=== PATIENT | male | born 1960 | race Caucasian/White ===

== ENCOUNTER 2024-11-24 00:45 | Emergency (ER) | payer SELFPAY ==
[2024-11-24] VITALS (29 sets, daily range): BP systolic 167–225; BP diastolic 92–141; PULSE 63–85; TEMP 36.4–36.9; O2SAT 72–95; BMI 20.4
--- NOTE | 2024-11-24 01:05 | PC.NURSE ---
this patient complains of shortness of breath onset a cough days this patient shortness of breath at rest and with walking
--- NOTE | 2024-11-24 01:08 | XR_ITS ---
The [address] [address] Patient Name: CONNIE JANSEN MRN: [id number] date: 1960 Sex: M Assigned Patient Location: ER Current Patient Location: ER Accession/Order Number: [id number] Exam Date: 11/24/2024 01:20 Report Date: 11/24/2024 01:40 At the request of: JEAN PIERRE SANCHEZ Procedure: XR chest 2V EXAM: XR chest 2V HISTORY: shortness of breath COMPARISON: None. TECHNIQUE: PA and lateral chest. FINDINGS: Acute infiltrates/pneumonia at base of right upper lobe and throughout the left lower lobe posterior aspect. Bilateral multifocal pneumonia. There is likely some involvement of the right lung base as well. Rest of lungs are clear. No pneumothorax. No pleural effusion. Normal heart size and vasculature. Normal osseous structures. XR/XR chest 2V IMPRESSION: Acute bilateral multifocal pneumonia involving right upper lobe and probably both lower lobes. Correlate for community-acquired infection and/or aspiration pneumonia versus atypical variety. Electronically authenticated by: KIA DRUMMOND Date: 11/24/2024 01:40
--- NOTE | 2024-11-24 01:12 | ECG_ITS ---
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
--- NOTE | 2024-11-24 01:13 | ED_ITS ---
HPI - SOB/Dyspnea General Chief Complaint: Shortness of Breath/Dyspnea Stated Complaint: SOB Time Seen by Provider: 11/24/24 00:52 Source: patient Mode of arrival: walk-in Limitations: no limitations History of Present Illness HPI Narrative: pt presents with shortness of breath that began one week ago and suddenly worsened tonight. He has not been evaluated by a PCP in over 10 yeas. He denies any PMHx, including asthma and COPD, but would not know since he has not seen anyone in so long. he is a daily smoker. No fever or chills. No nasal symptoms, ear pain or sore throat. he admits to some chest congestion. Related Data Previous Rx's ?Medication ?Instructions ?Recorded albuterol sulfate 90 mcg/actuation 2 inh inhalation Q6H PRN shortness 11/24/24 aerosol inhaler of breath or wheezing #6.7 grams doxycycline hyclate 100 mg tablet 100 mg PO BID 7 days #14 tabs 11/24/24 Allergies Allergy/AdvReac Type Severity Reaction Status Date / Time No Known Drug Allergies Allergy Verified 11/24/24 00:53 PFSH PFSH Social History Little interest or pleasure in doing things: not at all Feeling down, depressed, or hopeless: not at all Exam Narrative Exam Narrative: Nurses notes and vital signs reviewed and patient is not hypoxic. afebrile General: Well-appearing and in no apparent distress. Skin: Warm, dry, no pallor noted. No rash. Head: Normocephalic, atraumatic. Neck: Supple, non-tender. Eye: Pupils are equal, round and EOMI. No scleral icterus. Ears, Nose, Mouth, and Throat: TM are clear, no posterior oropharynx erythema or nasal mucosal hypertrophy, uvula is mid-line Oral mucosa is moist Cardiovascular: Regular Rate and Rhythm without murmur, gallop or rub. Respiratory: No accessory muscle use or respiratory distress. Lungs with scattered expiratory wheezing and rhonchi Musculoskeletal: normal ROM, no calf or popliteal tenderness, no lower extremity edema/swelling GI: Abdomen is soft, non-distended. Normal bowel sounds. No tenderness to palpation. No rebound, guarding, or rigidity noted. Neurological: A&O x4. No cranial nerve dysfunction observed. No truncal ataxia. Moves all extremities. Sensation intact. Psychiatric: Cooperative and interactive. Normal mood and affect. Constitutional Vital Signs, click to edit/add: Last Vital Signs Temp 97.6 F 11/24/24 00:49 Pulse 66 11/24/24 02:45 Resp 18 11/24/24 02:45 BP 173/93 H 11/24/24 02:45 Pulse Ox 92 L 11/24/24 02:45 O2 Del Method Room Air 11/24/24 00:49 Course Vital Signs Vital signs: Vital Signs Temperature 97.6 F 11/24/24 00:49 Pulse Rate 85 11/24/24 00:49 Respiratory Rate 20 11/24/24 00:49 Blood Pressure 225/141 H 11/24/24 00:49 Pulse Oximetry 92 L 11/24/24 00:49 Oxygen Delivery Method Room Air 11/24/24 00:49 Temperature 97.6 F 11/24/24 00:49 Pulse Rate 66 11/24/24 02:45 Respiratory Rate 18 11/24/24 02:45 Blood Pressure 173/93 H 11/24/24 02:45 Pulse Oximetry 92 L 11/24/24 02:45 Oxygen Delivery Method Room Air 11/24/24 00:49 MDM - SOB/Dyspnea MDM Narrative Medical decision making narrative: Patient found to have markedly elevated blood pressure. Patient was placed on hospital monitor and EKG obtained. No ST elevation although he did have biatrial enlargement and right axis deviation. Blood drawn and sent for evaluation. He was ordered to receive IV Labetalol for his HTN. WBC 11.2k. Chest x-ray reveals multifocal pneumonia. Pt informed of findings and given dose of doxycycline in ED. BMP revealed K 1.9 - he was ordered to get both oral and IV potassium. His troponin and BNP were revealed to be markedly elevated - trop 139, BNP 11542 He and I talked about his findings including markedly elevated troponin. He told me that he never had chest pain, just a dull ache under the left breast two days ago that lasted less than a couple of hours. Call placed to the hospitalist at [facility] to discuss transfer since we have no cardiac interventional coverage. Dr Olivier and I discussed the case and he agreed to accept the patient's transfer to our facility. he asked that I give the patient a dose of baby aspirin and a Lovenox injection while we awaited bed assignment and ambulance transfer. Pt was agreeable to go to [facility] for transfer and admission and understood our inability to manage his condition at this facility. Lab Data Attestation: I reviewed the patient's lab results. Labs: Lab Results 11/24/24 Range/Units 01:30 WBC 11.2 H (4.0-11.0) 10^3/uL RBC 4.00 L (4.70-6.10) 10^6/uL Hgb 13.0 L (14.0-18.0) g/dL Hct 36.2 L (42.0-54.0) % MCV 90.5 (80.0-94.0) fL MCH 32.5 (25.9-34.0) pg MCHC 35.9 H (29.9-35.2) g/dL RDW 12.7 (11.0-15.0) % Plt Count 308 (150-450) 10^3/uL MPV 8.6 L (9.5-13.5) fL Neut % (Auto) 76.6 H (43.0-75.0) % Lymph % (Auto) 14.5 L (20.5-60.0) % [place] % (Auto) 7.7 (1.7-12.0) % Eos % (Auto) 0.4 L (0.9-7.0) % Baso % (Auto) 0.4 (0.2-2.0) % Neut # (Auto) 8.6 H (1.4-6.5) 10^3/uL Lymph # (Auto) 1.6 (1.2-3.8) 10^3/uL [place] # (Auto) 0.9 H (0.3-0.8) 10^3/uL Eos # (Auto) 0.0 (0.0-0.7) 10^3/uL Baso # (Auto) 0.0 (0.0-0.1) 10^3/uL Abs Immat Gran (auto) 0.05 H (0.00-0.03) 10^3/uL Imm/Tot Granulo (auto) 0.4 (0.0-0.5) % Sodium 127 L (136-145) mmol/L Potassium 1.9 L* (3.5-5.1) mmol/L Chloride 86 L (98-107) mmol/L Carbon Dioxide 38.1 H (21.0-32.0) mmol/L Anion Gap 4.8 BUN 19.0 H (7.0-18.0) mg/dL Creatinine 1.12 (0.70-1.30) mg/dL Est GFR ( Amer) >60 (>=60 mL/min/1.73m^2) Est GFR (Non-Af Amer) >60 (>=60 mL/min/1.73m^2) BUN/Creatinine Ratio 17.0 Glucose 120 H (74-106) mg/dL Calcium 8.3 L (8.5-10.1) mg/dL Troponin I High Sens 139.4 H* (4.0-76.1) pg/mL NT-Pro-B Natriuret Pep 44104.0 H* (<=900.0) pg/mL Imaging Data Chest x-ray: Attestation: I have reviewed the pertinent imaging results. Radiologist's impression: ITS Impressions Chest X-Ray 11/24/24 01:08 IMPRESSION: Acute bilateral multifocal pneumonia involving right upper lobe and probably both lower lobes. Correlate for community-acquired infection and/or aspiration pneumonia versus atypical variety. Electronically authenticated by: KIA DRUMMOND Date: 11/24/2024 01:40 ECG Data Attestation: I personally reviewed and interpreted this ECG as follows: Interpretation: EKG interpretation: Emergency Department physician interpretation. Normal sinus rhythm at 83bpm. Bilateral atrial enlargement. Right axis deviation. Nonspecific ST and T wave changes without ST elevation or deep ischemic change. Discharge Plan Discharge Chief Complaint: Shortness of Breath/Dyspnea Clinical Impression: Acute non-ST elevation myocardial infarction (NSTEMI), Multifocal pneumonia, HTN (hypertension) Patient Disposition: [facility] Time of Disposition Decision: 02:36
[2024-11-24 01:41] LABS: Basophils Percent Auto 0.4 % (0.2-2.0); Eosinophils Percent Auto 0.4 % (0.9-7.0); Hematocrit 36.2 % (42.0-54.0); Immature Granulocytes Abs Auto 0.05 10^3/uL (0.00-0.03); Immature Granulocytes Pct Auto 0.4 % (0.0-0.5); Lymphocytes Absolute Auto 1.6 10^3/uL (1.2-3.8); Lymphocytes Percent Auto 14.5 % (20.5-60.0); Mean Corpuscular HGB Conc 35.9 g/dL (29.9-35.2); Mean Corpuscular Hemoglobin 32.5 pg (25.9-34.0); Mean Corpuscular Volume 90.5 fL (80.0-94.0); Mean Platelet Volume 8.6 fL (9.5-13.5); Monocytes Absolute Auto 0.9 10^3/uL (0.3-0.8); Monocytes Percent Auto 7.7 % (1.7-12.0); Neutrophils Absolute Auto 8.6 10^3/uL (1.4-6.5); Neutrophils Percent Auto 76.6 % (43.0-75.0); Platelet Count 308 10^3/uL (150-450); Red Cell Distribution Width 12.7 % (11.0-15.0); White Blood Count 11.2 10^3/uL (4.0-11.0)
[2024-11-24] MEDS: LABETALOL HCL 20 MG/4 ML SYRINGE IVP (01:43)
[2024-11-24] MEDS: METHYLPREDNISOLONE SOD SUCC PF 125 MG/2 ML VIAL IVP (01:43)
[2024-11-24 02:04] LABS: Anion Gap 4.8; Calcium 8.3 mg/dL (8.5-10.1); Carbon Dioxide 38.1 mmol/L (21.0-32.0); Chloride 86 mmol/L (98-107); Estimated GFR (African America >60 (>=60 mL/min/1.73m^2); Estimated GFR (Non-African Ame >60 (>=60 mL/min/1.73m^2); Glucose 120 mg/dL (74-106); Sodium 127 mmol/L (136-145)
[2024-11-24] MEDS: DOXYCYCLINE MONOHYDRATE 100 MG CAPSULE PO (02:05)
--- NOTE | 2024-11-24 02:12 | PC.NURSE ---
Dr Gallegos was informed of the patient's last blood pressure
[2024-11-24 02:13] LABS: Potassium 1.9 mmol/L (3.5-5.1); Troponin I High Sensitivity 139.4 pg/mL (4.0-76.1)
[2024-11-24] MEDS: POTASSIUM CHLORIDE IN 0.9%NACL 1,000 ML 250 ML IV (02:52)
[2024-11-24] MEDS: POTASSIUM CHLORIDE 10 MEQ ER TABLET 40 MEQ PO (03:08)
[2024-11-24] MEDS: ENOXAPARIN SODIUM 60 MG/0.6 ML SYRINGE SUBQ (03:29)
[2024-11-24] MEDS: ASPIRIN 81 MG TAB.CHEW PO (03:29)
[2024-11-24] MEDS: ASPIRIN 81 MG TABLET.DR PO (03:30)
--- NOTE | 2024-11-24 03:55 | PC.NURSE ---
this patient updated that his transport squad will be in 30 minutes, this patient voics no concerns and shows no signs of distress
--- NOTE | 2024-11-24 04:09 | PC.NURSE ---
[facility] crew here and I gave them a patient report and they received this patient's paper work
--- NOTE | 2024-11-24 04:18 | PC.NURSE ---
patient report called to [facility] [phone], patient going to room 4019. this patient's IV fluids will continue during transport to [facility]. this patient iv site running without any problems and patient voices no concerns and no complaints and shows no signs of distress
== END 2024-11-24 04:21 | disposition short-term general hospital (02) ==
PROVIDERS: Emergency Provider Emergency Medicine
DX: I21.4 Non-ST elevation (NSTEMI) myocardial infarction (principal); J18.9 Pneumonia, unspecified organism; F17.200 Nicotine dependence, unspecified, uncomplicated; I10 Essential (primary) hypertension
CPT/HCPCS: 36415; 71046; 80048; 83880; 84484; 85025; 93005; 96365; 96372; 96375; 99285; J1650; J1920; J2919

== ENCOUNTER 2025-10-14 08:59 | Outpatient (OUT) | payer OTHER, SELFPAY ==
--- OUTSIDE RECORDS SUMMARY | 2025-10-14 09:09 | XMS_ITS | CCD ---
Author Organization [facility] Inform ion Partnership [facility] Care Team Providers Care Head Worker Name Role Phone MISC, DOCTOR Primary Care Unavailable DELPHINE ZAPATA V Consulting Unavailable JEAN PIERRE SANCHEZ Admitting Unavailable JEAN PIERRE SANCHEZ Attending Unavailable JEAN PIERRE SANCHEZ Consulting Unavailable Dania Alfred Consulting Unavailable Soy OLIVAREZ, Adama Admaaron Provider [phone] Clair Lawson APRN Primary Care Provider [phone] Lucien Aguila DO Attending Provider Unallocated , Noms Provider Primary Care Provi arielle Ngozi Alfaro NP Unavailable JUSTINE ARZATE Attending Unavailable NGOZI ALFARO Referring Unavailab le Ngozi Alfaro APRN Primary Care Provider Tyson Angeles MD Attending Provider Melisa Miranda APRN Emergency Provider [phone] Adama Olivier MD Provider Clair Lawson APRN Primary Care Provider [phone] Lucien Aguila DO Attending Provider [phone] Ngozi Alfaro APRN Primary Care Provider Tyson Angeles MD Attending Provider Melisa Miranda APRN Emergency Provider Philomena Munoz Attending Provider Deandre Rolle MD Attending Provider Ngozi Alfaro APRN Primary Care Provider Melisa Miranda Admitting Unavailable Melisa Miranda Attending Unavailable Ngozi Alfaro [facility] Unavailable Tyson Angeles Admitting Tyson Ventura Attending Ngozi Saini [facility] Unavailable Philomena Montes Admitting Unavailable Philomena Montes Attending Unavailable Ngozi Alfaro Primary Care Unavailable Deandre Rolle Admitting Unavailable Deandre Rolel Attending Unavailable Ngozi Alfaro [facility] Care Unavailable Analy Tello Consulting Unavailable Clair Lawson Primary Care Unavailable Adama Olivier Admitting Unavailable Lucien Aguila Attending Unavailable Cornel Negron Consulting Unavailable Tyson Angeles Consulting Lorena Arambula Consulting Unavailable Deandre Rolle Admitting Unavailable Deandre Rolle Attending Unavailable Ngozi Alfaro [facility] Unavailable Ngozi Alfaro APRN [facility] Provider Deandre Rolle MD Attending Provider Medications Current Medications MedicationDrug Class(es)DatesSig (Normalized)Sig (Original)acetaminophen 500 mg oral tablet (5 sources)Start: 12-23-7952rwdu 2 tablets by mouth every six hours as needed for painAcetaminophen (Acetaminophen Extra Strength) 500 mg tablet Active 1000 MG PO Every 6 hours as needed for fever or pain February 17, 2025 12:00am Complies with drug [id number] 200 actuat albuterol 0.09 mg/actuat metered dose inhaler (5 sources)beta2-Adrenergic AgonistStart: 60-36-2653Uqnmymxwz Sulfate 90 mcg/actuation HFA aerosol inhaler Active 2 INH INHALATION Every 6 hours as need ed for sob February 17, 2025 12:00am Complies with drug therapyaspirin 81 mg chewable tablet (12 sources)Platelet Aggregation Inhibitor, Nonsteroidal Anti-inflammatory Drug Start: 70-31-1965vehb 1 tablet by mouth once dailyAspirin (Children's Aspirin) 81 mg Tablet,Chewable Active 81 MG PO Daily November 25, 2024 1:00am Complies with drug therapyatorvastatin 80 mg oral tablet (17 sources)HMG-CoA Reductase InhibitorStart: 11-25-2024 End: 67-73-3387fnqn 1 tablet by mouth once daily in the eveningAtorvastatin 80 mg tablet Active 80 MG PO Every evening 90 90 May 22, 2025 8:18am Complies with drug therapycarvedilol 6.25 mg oral tablet (17 sources)alpha-Adrenergic Eliana, beta-Adrenergic BlockerStart: 11-25-2024 End: 28-80-9840zsxc 1 tablet by mouth twice daily at mealtimeCarvedilol 6.25 mg tablet Active 6.25 MG PO Twice daily with meals 180 90 May 22, 2025 8:18am Complies with drug therapynitroglycerin 0.4 mg sublingual tablet (12 sources)Nitrate VasodilatorStart: 19-62-4746Bmldrhfmjjabf 0.4 mg tablet, sublingual Active 0.4 MG SUBLINGUAL Q5M as needed for chest pain 25 30December 2023 1:00am do not exceed 3 doses per episode Complies with drug therapy valsartan 80 mg oral tablet (17 sources)Angiotensin 2 Receptor BlockerStart: 11-27-2024 End: 61-89-9550euuf 1 tablet by mouth twice dailyValsartan 80 mg tablet Active 80 MG PO Twice daily 180 90 May 22, 2025 8:18am Complies with drugtherapy Completed/Discontinued Medications MedicationDrug Class(es)DatesSig (Normalized)Sig (Original)acetaminophen 325 mg / HYDROcodone bitartrate 5 mg oral tablet (9 sources)Opioid AgonistStart: 01-17-2025 End: 43-88-5550zkji 1 tablet by mouth three times daily as needed for pain Hydrocodone-Acetaminophen 5-325 mg tablet Discontinued 1 TAB PO Three times daily as needed for pain 9 January 17, 2025 February 17, 2025 9:35am amLODIPine 10 mg oral tablet (20 sources)Dihydropyridine Calcium Channel BlockerStart: 11-27-2024 End: 75-78-6157mdeq 1 tablet by mouth once daily in the morningAmlodipine 10 mg Tablet Discontinued 10 MG PO Every morning February 17, 2025 12:00am February 27, 2025 10:41amclopidogrel 75 mg oral tablet (17 sources)P2Y12 Platelet InhibitorStart: 12-27-2024 End: 17-18-3786bhvt 1 tablet by mouth once daily in the morning, then take 1 tablet by mouth once dailyClopidogrel 75 mg tablet Discontinued 75 MG PO Every morning February 17, 2025 12:00am April 040:42am 75 mg orally take 300mg day one then 75mg daily there after;ticagrelor 90 mg oral tablet (20 sources)Start: 11-25-2024 End: 33-91-3739ucru 1 tablet by mouth twice dailyTicagrelor (Brilinta) 90 mg tablet Discontinued 90 MG PO Twice daily 180 90 December 19, 2024 2:22pm December 27, 2024 12:41pm Problems Active Problems Problem ClassificationProblemDateDocumented DateEpisodic/ChronicAcute myocardial infarction (20 sources)Myocardial infarction; Translations: [Non-ST elevation (NSTEMI) myocardial infarction]Onset: 658256-88-3194YqwsacfYrgoal; peripheral; and visceral artery aneurysms (20 sources)Abdominal aortic aneurysm; Translations: [Abdominal aortic aneurysm (AAA) 3.0 cm to 5.5 cm in diameter in male]11-64-1278GgeskoqVnoqmycdje heart failure; nonhypertensive (20 sources)Congestive heart failure; Translations: [Heart failure, unspecified] Onset: 732543-75-0064KhybculExycxjzm atherosclerosis and other heart disease (20 sources)Coronary arteriosclerosis; Translations: [Atherosclerotic heart disease of [place] coronary artery without angina pectoris]42-27-5459Thhjkkc Coronary atherosclerosis and other heart disease (17 sources)Presence of coronary angioplasty implant and graft; Translations: [Percutaneous transluminal coronary angioplasty status]03-19-6948Suzqujsl Disorders of lipid metabolism (20 sources)Mixed hyperlipidemia; Translations: [Mixed hyperlipidemia]12-13-2024 ChronicEssential hypertension (20 sources)Essential hypertension; Translations: [Essential (primary) hypertension]66-60-4969JavnkyrMnxdutseuqnj with complications and secondary hypertension (20 sources)Hypertensive urgency ; Translations: [Hypertensive urgency]Onset: 624406-55-7158GyuyzkzGaclo aftercare (9 sources)Encounter for follow-up examination after completed treatment for conditions other than malignant neoplasm; Translations: [Other follow-up examination]99-26-8430OpqrwrvwQcrut connective tissue disease (9 sources)Pain in left arm; Translations: [Pain in left arm]63-39-3839Soyheavk Other lower respiratory disease (3 sources)Shortness of breath; Translations: [SHORTNESS OF BREATH]Onset: 70-38-4574AstjxeqzZekxs nervous system disorders (11 sources)Paresthesia of left upper limb; Translations: [Paresthesia of skin] 49-08-9913RwtqlxerRastn nervous system disorders (8 sources)Paresthesia of skin; Translations: [Disturbance of skin sensation] 91-18-4990JatxkoepAvbax nervous system disorders (2 sources)Numbness and tingling sensation of skin; Translations: [Anesthesia of skin]88-82-9657JpcmjfmdHidssbnpiy and visceral atherosclerosis (20 sources)Peripheral vascular disease, unspecified; Translations: [Peripheral vascular disease, unspecified]Onset: 283621-20-0835VilkiluBhnvmngiz (except that caused by tuberculosis or sexually transmitted disease) (1 source)Pneumonia, unspecified organism; Translations: [PNEUMONIA UNSPECIFIED ORGANISM]Onset: 68-69-0146XooycqetUmrvaetxeap failure; insufficiency; arrest (adult) (20 sources)Acute respiratory failure; Translations: [Acute respiratory failure with hypoxia]Onset: 479782-64-5050AmfilhmbKepoonwtx-tdczzno disorders (20 sources)Nicotine dependence, cigarettes, uncomplicated; Translations: [Nicotine dependence]Onset: 743714-16-1210SpnubznYijtorepytgs (1 source)CONTACT W/AND (SUSP) EXPOS COVID-19; Translations: [CONTACT W/AND (SUSP) EXPOS COVID-19]Onset: 58-46-2070Tnnxtwhenpuf (1 source)Abdominal aortic aneurysm, without rupture, unspecified; Translations: [Abdominal aortic aneurysm, without rupture, unspecified]Onset: 11-24-2024 Past or Other Problems Problem ClassificationProblemDateDocumented DateEpisodic/ChronicOther connective tissue disease (1 source)Pain in left arm; Translations: [Pain in left arm]Onset: 01-17-2025 Episodic Results Test NameValueInterpretationReference RangeFacilityAlanine aminotransferase [Enzymatic activity/volume] in Serum or PlasmaOrdered By: Deandre Rolle on 90-43-8202WTW [Catalytic activity/Vol]Alanine aminotransferase [Enzymatic activity/volume] in Serum or Plasma7-52[facility] HospitalAlbumin [Mass/volume] in Serum or Plasma by Bromocresol green (BCG) dye binding metho Ordered By: Deandre Rolle on 14-35-8361Yewcfoa BCG dye [Mass/Vol]Albumin [Mass/volume] in Serum or Plasma by Bromocresol green (BCG) dye binding metho 3.5-5.7FHocking Valley Community HospitalAlkaline phosphatase [Enzymatic activity/volume] in Serum or PlasmaOrdered By: Deandre Rolle on 76-29-5772TZP [Catalytic activity/Vol]Alkaline phosphatase [Enzymatic activity/volume] in Serum or MwjvegSyup23-943WajwahjbyMemorial Health System Marietta Memorial HospitalAspartate aminotransferase [Enzymatic activity/volume] in Serum or PlasmaOrdered By: Deandre Rolle on 28-86-0595WUI [Catalytic activity/Vol]Aspartate aminotransferase [Enzymatic activity/volume] in Serum or Mgwepr76-15MgtrwethmMemorial Health System Marietta Memorial HospitalBasophils Auto (Bld) [#/Vol]Ordered By: Deandre Rolle on 12-45-5693Zarinedtd (Bld) [#/Vol]Automated basophil count0.0-0.2FHocking Valley Community HospitalBasophils/100 WBC Auto (Bld)Ordered By: Deandre Rolle on 66-45-1823Amroyrgld/100 WBC (Bld)Automated basophil %.[facility] HospitalBilirubin.total [Mass/volume] in Serum or PlasmaOrdered By: Deandre Rolle on 43-89-2029Bpuxqxgvb [Mass/Vol]Bilirubin.total [Mass/volume] in Serum or Plasma0.3-1.0[facility] HospitalCalcium [Mass/volume] in Serum or PlasmaOrdered By: Deandre Rolle on 61-69-5637Oocovqy [Mass/Vol] Calcium [Mass/volume] in Serum or Plasma8.6-10.3FHocking Valley Community HospitalCarbon dioxide, total [Moles/volume] in Serum or PlasmaOrdered By: Deandre Rolle on 17-89-8181WH7 [Moles/Vol]Carbon dioxide, total [Moles/volume] in Serum or Fawirm04.0-31.0[facility] HospitalChloride [Moles/volume] in Serum or PlasmaOrdered By: Deandre Rolle on 63-23-1212Yscduygr [Moles/Vol] Chloride [Moles/volume] in Serum or Lmvcqw66-793NqefyyiyjMemorial Health System Marietta Memorial HospitalComplete Blood Count Auto Diffon 86-94-8436Bqeieegel (Bld) [#/Vol]0.1 10*3/uLNormal0.0-0.2The [facility] Physician GroupComment on above:Result Comment: PERFORMED BY: [place] [id number] PATHOLOGIST LAST CHALKER ABIMAEL PEREIRA M.D.Performed By: #### CMP, CBC #### [place] [address] USABasophils/100 WBC (Bld)0.9 %Normal.The [facility] Physician GroupComment on above:Performed By: #### CMP, CBC #### [place] [address] USAEosinophils (Bld) [#/Vol]0.2 10*3/uLNormal0.0-0.45The [facility] Physician GroupComment on above:Performed By: #### CMP, CBC #### [place] [address] USAEosinophils/100 WBC (Bld)2.5 %Normal.The [facility] Physician GroupComment on above:Performed By: #### CMP, CBC #### [place] [address] USAErythrocyte distribution width (RBC) [Ratio]15.3 %High 12.0-14.8The [facility] Physician GroupComment on above:Performed By: #### CMP, CBC #### [place] [address] USAHematocrit (Bld) [Volume fraction]34.7 %Low38.8-50.0The [facility] Physician GroupComment on above:Performed By: #### CMP, CBC #### [place] [address] USAHemoglobin (Bld) [Mass/Vol]11.7 g/dLLow13.0-17.0The [facility] Physician GroupComment on above:Performed By: #### CMP, CBC #### [place] [address] USALymphocytes (Bld) [#/Vol]2.0 10*3/uLNormal1.00-4.8The [facility] Physician GroupComment on above:Performed By: #### CMP, CBC #### [place] [address] USALymphocytes/100 WBC (Bld)23.5 %Normal.The [facility] Physician GroupComment on above:Performed By: #### CMP, CBC #### [place] [address] USAMCH (RBC) [Entitic mass]30.3 ltCrboln02.5-35.2The [facility] Physician GroupComment on above:Performed By: #### CMP, CBC #### [place] [address] USAMCV (RBC) [Entitic vol]89.6 fZAbchpc79.5-101The [facility] Physician GroupComment on above:Performed By: #### CMP, CBC #### [place] [address] USAMean Corpuscular HGB Conc33.9 g/dSJczltb14.5-35.6The [facility] Physician GroupComment on above:Performed By: #### CMP, CBC #### [place] [address] USAMonocytes (Bld) [#/Vol]0.7 10*3/uLNormal0.0-0.8The [facility] Physician GroupComment on above:Performed By: #### CMP, CBC #### [facility] [address] [place] [address] USAMonocytes/100 WBC (Bld)8.0 %Normal.The [facility] Physician GroupComment on above:Performed By: #### CMP, CBC #### [facility] [address] [place] [address] USANeutrophils (Bld) [#/Vol]5.6 10*3/uLNormal1.8-7.7The [facility] Physician GroupComment on above:Performed By: #### CMP, CBC #### [facility] [address] [place] [address] USANeutrophils/100 WBC (Bld)65.1 %Normal.The [facility] Physician GroupComment on above:Performed By: #### CMP, CBC #### [facility] [address] [place] [address] USANRBC%0.0 /100{WBC}Normal0-0.5The [facility] Physician Group Comment on above:Performed By: #### CMP, CBC #### [facility] [address] [place] [phone] USAPlatelet mean volume (Bld) [Entitic vol]6.5 fLLow6.6-10.1 The [facility] Physician GroupComment on above:Performed By: #### CMP, CBC #### [facility] [address] [place] [address] USAPlatelets (Bld) [#/Vol]336 10*3/fWKnvnih122-532Zse [facility] Physician GroupComment on above:Performed By: #### CMP, CBC #### [facility] [address] [place] [address] USARBC (Bld) [#/Vol]3.87 10*6/uLLow3.90-5.60The [facility] Physician GroupComment on above:Performed By: #### CMP, CBC #### [facility] [address] [place] [address] USAWBC (Bld) [#/Vol]8.6 10*3/uLNormal4.1-10.5The [facility] Physician GroupComment on above:Performed By: #### CMP, CBC #### [place] [address] USAComprehensive Metabolic Panelon 12-03-7911Vocrfrp [Mass/Vol]4.0 g/dLNormal3.5-5.7The [facility] Physician GroupComment on above: Performed By: #### CMP, CBC #### [place] [address] USAAlbumin/Globulin [Mass ratio]1.4 {ratio}NormalThe [facility] Physician GroupComment on above:Performed By: #### CMP, CBC #### [place] [address] USAALP [Catalytic activity/Vol]111 U/JSjly15-049Cdk [facility] Physician GroupComment on above:Result Comment: PERFORMED BY: [place] [id number] PATHOLOGIST LAST CHALKER ABIMAEL PEREIRA M.D.Performed By: #### CMP, CBC #### [place] [address] USAALT [Catalytic activity/Vol]21 U/LNormal7-52The [facility] Physician GroupComment on above:Performed By: #### CMP, CBC #### [place] [address] USAAnion gap [Moles/Vol]9.2 mmol/LNormal6.0-15.0The [facility] Physician GroupComment on above:Performed By: #### CMP, CBC #### [place] [address] USAAST [Catalytic activity/Vol]13 U/SOxmuxt18-94Mxr [facility] Physician GroupComment on above:Performed By: #### CMP, CBC #### [place] [address] USABilirubin [Mass/Vol]0.4 mg/dLNormal0.3-1.0The [facility] Physician GroupComment on above:Performed By: #### CMP, CBC #### [facility] [address] [place] [address] USACalcium [Mass/Vol]9.0 mg/dLNormal8.6-10.3The [facility] Physician GroupComment on above:Performed By: #### CMP, CBC #### [facility] [address] [place] [address] USAChloride [Moles/Vol]107 mmol/HUaotka56-944Lgj [facility] Physician GroupComment on above:Performed By: #### CMP, CBC #### [facility] [address] [place] [address] USACO2 [Moles/Vol]26.0 mmol/VCgkemd78.0-31.0The [facility] Physician GroupComment on above:Performed By: #### CMP, CBC #### [place] [address] USACreatinine [Mass/Vol]1.27 mg/dLNormal0.70-1.30The [facility] Physician GroupComment on above:Performed By: #### CMP, CBC #### [place] [address] USAGFR/1.73 sq M.predicted MDRD (S/P/Bld) [Vol rate/Area] mL/min/{1.73_m2}NormalThe [facility] Physician GroupComment on above:Performed By: #### CMP, CBC #### [place] [address] USAGlobulin (S) [Mass/Vol]2.8 g/dLNormalThe [facility] Physician GroupComment on above:Performed By: #### CMP, CBC #### [facility] [address] [place] [address] USAGlucose [Mass/Vol]99 mg/hBOiquqv02-536Ohd [facility] Physician GroupComment on above:Result Comment: Random Glucose Reference Range is dependent on time and content of last meal. Glucose of more than 200 mg/dL in a nonstressed, ambulatory subject supports the diagnosis of Diabetes Mellitus. ADA recommended reference rangePerformed By: #### CMP, CBC #### [address] [place] [address] USAPotassium [Moles/Vol]4.2 mmol/LNormal3.5-5.1The [facility] Physician GroupComment on above:Performed By: #### CMP, CBC #### [facility] [address] [place] [id number] USAProtein [Mass/Vol]6.8 g/dLNormal6.4-8.9The [facility] Physician GroupComment on above:Performed By: #### CMP, CBC #### [facility] [address] [place] [address] USASodium [Moles/Vol]138 mmol/ZGxkyro994-228Bhh [facility] Physician GroupComment on above:Performed By: #### CMP, CBC #### [facility] [address] [place] [id number] USAUrea nitrogen [Mass/Vol]21 mg/dLNormal7-25The [facility] Physician GroupComment on above:Performed By: #### CMP, CBC #### [facility] [address] [place] [id number] USACreatinine [Mass/volume] in Serum or PlasmaOrdered By: Deandre Rolle on 32-18-6862Xlxekvfaus [Mass/Vol]Creatinine [Mass/volume] in Serum or Plasma0.70-1.30[facility] HospitalEosinophils Auto (Bld) [#/Vol]Ordered By: Deandre Rolle on 47-82-4341Hpkthiwtnzr (Bld) [#/Vol] Automated eosinophil count0.0-0.45[facility] Eosinophils/100 WBC Auto (Bld)Ordered By: Deandre Rolle on 02-17-2025 Eosinophils/100 WBC (Bld)Automated eosinophil %.[facility] HospitalErythrocyte distribution width Auto (RBC) [Ratio]Ordered By: Deandre Rolle on 72-16-2009Lbyuzsjenwd distribution width (RBC) [Ratio]Erythrocyte distribution width [Ratio] by Automated fmfcmVswz68.0-14.8[facility] HospitalGlobulin Calc (S) [Mass/Vol]Ordered By: Deandre Rolle on 43-29-7780Wpleqben (S) [Mass/Vol]Serum globulin measurement by calculation (mass/volume)[facility] HospitalGlucose [Mass/volume] in Serum or PlasmaOrdered By: Deandre Rolle on 28-85-2051Wolpbnd [Mass/Vol]Glucose [Mass/volume] in Serum or Noplme14-344RhturmlmvMemorial Health System Marietta Memorial HospitalComment on above:ADA recommended reference rangeRandom Glucose Reference Range is dependent on time and content of last meal. Glucose of more than 200 mg/dL in a nonstressed, ambulatory subject supports the diagnosisof Diabetes Mellitus. Hematocrit Auto (Bld) [Volume fraction]Ordered By: Deandre Rolle on 02-17-2025 Hematocrit (Bld) [Volume fraction]Hematocrit [Volume Fraction] of Blood by Automated zsdbkUxd56.8-50.0[facility] HospitalHemoglobin [Mass/volume] in BloodOrdered By: Deandre Rolle on 08-88-5616Bgidksolci (Bld) [Mass/Vol]Hemoglobin [Mass/volume] in TjxnyWnv75.0-17.0[facility] HospitalLeukocytes [#/volume] corrected for nucleated erythrocytes in Blood by Automated counOrdered By: Deandre Rolle on 79-02-5998XNL corrected for nucl RBC Auto (Bld) [#/Vol]Leukocytes [#/volume] corrected for nucleated erythrocytes in Blood by Automated coun4.1-10.5FHocking [facility] Hospital Lymphocytes Auto (Bld) [#/Vol]Ordered By: Deandre Rolle on 02-17-2025 Lymphocytes (Bld) [#/Vol]Lymphocytes [#/volume] in Blood by Automated count 1.00-4.8[facility] HospitalLymphocytes/100 WBC Auto (Bld)Ordered By: Deandre Rolle on 72-14-4501Tdlymephfxw/100 WBC (Bld)Lymphocytes/100 leukocytes in Blood by Automated count.[facility] Auto (RBC) [Entitic mass]Ordered By: Deandre Rolle on 50-95-6971BMR (RBC) [Entitic mass]MCH [Entitic mass] by Automated count27.5-35.2[facility] CenterMCHC Auto (RBC) [Mass/Vol]Ordered By: Deandre Rolle on 19-94-7801DUMG (RBC) [Mass/Vol]MCHC [Mass/volume] by Automated count32.5-35.6FHocking Valley Community HospitalMCV Auto (RBC) [Entitic vol]Ordered By: Deandre Rolle on 13-49-1142XRY (RBC) [Entitic vol]MCV [Entitic volume] by Automated count83.5-101 [facility] HospitalMonocytes Auto (Bld) [#/Vol]Ordered By: Deandre Rolle on 45-88-2467Nzbqneinm (Bld) [#/Vol]Automated blood monocyte count 0.0-0.8[facility] HospitalMonocytes/100 WBC Auto (Bld)Ordered By: Deandre Rolle on 14-66-0484Lndnbjszm/100 WBC (Bld)Automated monocyte %. [facility] HospitalNeutrophils Auto (Bld) [#/Vol]Ordered By: Deandre Rolle on 72-00-3795Zhtkoljfnfx (Bld) [#/Vol]Neutrophils [#/volume] in Blood by Automated count1.8-7.7FHocking Valley Community HospitalNeutrophils/100 WBC Auto (Bld)Ordered By: Deandre Rolle on 97-16-5119Evknmyskmeb/100 WBC (Bld) Automated neutrophil %.[facility] HospitalNo Panel Information Ordered By: Deandre Rolle on 90-26-9024Rminuarik GFR (CKD-EPI)> 60.0 mL/Min [facility] HospitalPharmacy Creatinine Clearance (ChemN/AFHocking Valley Community HospitalNucleated erythrocytes [Presence] in Blood by Automated countOrdered By: Deandre Rolle on 09-64-4869Odfignadt RBC Auto Ql (Bld) Nucleated erythrocytes [Presence] in Blood by Automated count0-0.5FHocking Valley Community HospitalPlatelet mean volume Auto (Bld) [Entitic vol]Ordered By: Deandre Rolle on 75-32-5460Hbieljjk mean volume (Bld) [Entitic vol]Platelet mean volume [Entitic volume] in Blood by Automated countLow6.6-10.1FHocking Valley Community HospitalPlatelets Auto (Bld) [#/Vol]Ordered By: Deandre Rolle on 62-63-3197Hdpqpgvcg (Bld) [#/Vol]Platelets [#/volume] in Blood by Automated ilosr099-665MnleelradMemorial Health System Marietta Memorial HospitalPotassium [Moles/volume] in Serum or PlasmaOrdered By: Deandre Rolle on 63-67-3256Vjxhloowb [Moles/Vol]Potassium [Moles/volume] in Serum or Plasma3.5-5.1FHocking Valley Community Hospital Protein [Mass/volume] in Serum or PlasmaOrdered By: Deandre Rolle on 82-68-7984Ydrjjjk [Mass/Vol]Protein [Mass/volume] in Serum or Plasma6.4-8.9 [facility] HospitalRBC Auto (Bld) [#/Vol]Ordered By: Deandre Rolle on 05-07-3275ECW (Bld) [#/Vol]Erythrocytes [#/volume] in Blood by Automated countLow3.90-5.60Pomerene Hospitalerum or plasma albumin/globulin mass ratioOrdered By: Deandre Rolle on 02-17-2025 Albumin/Globulin [Mass ratio]Serum or plasma albumin/globulin mass ratio Pomerene Hospitalerum or plasma anion gap determinationOrdered By: Deandre Rolle on 22-71-2909Yvdhd gap [Moles/Vol]Serum or plasma anion gap determination6.0-15.0Pomerene Hospitalodium [Moles/volume] in Serum or PlasmaOrdered By: Deandre Rolle on 45-22-1026Kpnvue [Moles/Vol]Sodium [Moles/volume] in Serum or Yqvwkb139-755ZauljjwtpMemorial Health System Marietta Memorial HospitalUrea nitrogen [Mass/volume] in Serum or PlasmaOrdered By: Deandre Rolle on 28-02-0338Ngjj nitrogen [Mass/Vol]Urea nitrogen [Mass/volume] in Serum or Plasma 7-25[facility] HospitalWBC Auto (Bld) [#/Vol]Ordered By: Deandre Rolle on 63-32-1270QRU (Bld) [#/Vol]Leukocytes [#/volume] in Blood by Automated count4.1-10.5FHocking Valley Community HospitalCT angio abd aorta runoffon 39-16-6602BE angio abd aorta runoffST[facility] [place] [address] [place] [address] CT Scan Report Signed Patient: Hardeep Traore MR#: [id number] : 1960 Acct:[id number] Age/Sex: 64 / M ADM Date: 02/06/25 Loc: CT Room: Type: [facility] Attending Dr: Philomena Montes RN PROCEDURE-C Copies to: Philomena Montes APRN Ordering Provider: Philomena Montes APRN Date of Service: 02/06/25 CT/CT angio abd aorta runoff: I70.213 - Atherosclerosis of [place] arteries of extremiti... CTA abdomen, pelvis, and bilateral lower extremities . CLINICAL DATA: Atherosclerosis of both lower extremities.. TECHNIQUE: Intravenous contrast-enhanced CT angiography of the abdomen, pelvis, and bilateral lower extremities was performed. Axial, sagittal, coronal, and 3D-dimensional reconstructions were created and reviewed. This CT exam was performed using one or more of the following dose reduction techniques: Automated exposure control, adjustment of the mA and/or kV according to patient size, or use of iterative reconstruction technique. COMPARISON: Aortic ultrasound 11/24/2024. FINDINGS: Lung Bases: No acute process. Organs:Gallbladder has been removed. Liver pancreas spleen and adrenal glands appear unremarkable. Right kidney appears unremarkable. There is decreased attenuation of the left kidney when compared to the right which appears to relate to an occlusion involving the left renal artery. Punctate stones are seen involving the left kidney. Abdominal aorta demonstrates fusiform type infrarenal abdominal aortic aneurysm measuring 3.5 cm with associated thrombus and narrowing of the lumen. There appears be occlusion involving the right common iliac artery and severe narrowing of the right external iliac artery. This appears to be associated contrast opacification of the right internal iliac artery likely related to collateral flow. There appears be contrast opacification at the region of the right common femoral artery which appears to be supplied by a prominent right epigastric artery. Soft plaquing involving the origins of the SMA and celiac arteries without cortical stenosis or occlusion. Mild calcification involving the proximal right renal vein without critical stenosis or occlusion. ROSY is not clearly seen. Moderate calcification and soft plaquing involving the left common and external iliac artery with what appears to be severe stenosis involving the distal left common iliac artery. 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 GI: Stomach is grossly unremarkable. Small bowel appears nondilated. No acute colonic abnormality.[ Pelvis:[Prostatomegaly. Urinary bladder is grossly unremarkable.] Peritoneum/Retroperitoneum:No free air or free fluid or lymphadenopathy.[ Abd wall/Bones:No acute findings. Osseous structures demonstrate degenerative change.[ Lower extremities: Left: Mild calcification involving the left common femoral artery without critical stenosis or occlusion. Slitter Scorer branches appear patent. Mild calcification involving the left SFA without critical stenosis or occlusion. There is severe narrowing by soft plaquing involving the distal aspect of the popliteal artery. There appears to be low trifurcation involving the anterior tibial, posterior tibial and peroneal arteries arteries. The anterior and posterior tibial arteries appear patent to the level of the ankle. Dorsalis pedis artery appears patent. The distal aspect of the peroneal artery is not clearly seen. No focal soft tissue abnormality is noted. No significant soft tissue swelling. No fluid collection is seen. Musculature demonstrate no focal abnormality. Osseous structures demonstrate degenerative change. Right: Right common femoral artery appears patent due to collateral flow from the right epigastric artery. There is mild calcification is soft plaquing without critical stenosis or occlusion. Slitter Scorer branches appear patent. Calcification and soft plaquing is seen involving the right SFA without critical stenosis or occlusion. Popliteal artery demonstrates mild calcification and soft plaquing without critical stenosis or occlusion. Tibioperoneal trunk appears patent. Anterior tibial artery demonstrates mild calcification but appears patent throughout its course. Dorsalis pedis artery appears patent. Posterior tibial artery appears patent. Peroneal artery appears patent. No focal soft tissue abnormality is noted. No significant soft tissue swelling. No fluid collection is seen. Musculature demonstrate no focal abnormality. Osseous structures demonstrate degenerative change. CT/CT angio abd aorta runoff IMPRESSION: 1. 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 2. Calcification significant soft plaquing invol (more content not included)... NormalThe [facility] Physician GroupUS venous duplex UE [facility] 08-73-3457WW venous duplex UE [facility]FIREL[facility] [place] [id number] Ultrasound Report Signed Patient: Hardeep Traore MR#: [id number] : 1960 Acct:[id number] Age/Sex: 64 / M ADM Date: 01/17/25 Loc: ER Room: Type: [facility] ER Attending Dr: Ordering Provider: Melisa Miranda APRN Date of Service: 01/17/25 US/US venous duplex UE LT: pain Copies to: Melisa Miranda APRN VENOUS DUPLEX LEFT UPPER EXTREMITY INDICATION: Left upper extremity pain and tenderness. PROCEDURE: Color-flow duplex scanning is used to interrogate the deep venous system of the Left upper extremity. Compression, Color flow and Augmentation were all normal for the deep and superfic ial veins of the left arm. In the contralateral limb, the subclavian vein appears with color flow and augmentation. No thrombus was identified. US/US venous duplex UE LT IMPRESSION: NO EVIDENCE OF DVT OR SVT IN THE LEFT ARM. Impression dictated by: Jason Ceja MD01/18/2025 8:09 AM Dictation Location: [place] [address] Tech: Alexa Christianson Transcribed By: RANJEET 01/18/25808 Dictated By: Jason Ceja MD 01/18/25 08 Signed By: 01/18/[address] [place] [address] Physician GroupB-Type Natriuretic Peptideon 27-05-4484Ugeihtpwyae peptide B (Bld) [Mass/Vol]127.0 pg/mLHigh5-100The [facility] Physician GroupComment on above:Result Comment: PERFORMED BY: [place] [id number] PATHOLOGIST LAST CHALKER ABIMAEL PEREIRA M.D.Performed By: #### BMP #### [place] [id number] USABasic Metabolic Panelon 47-26-8906Xpohy gap [Moles/Vol] 10.3 mmol/LNormal6.0-15.0The [facility] Physician GroupComment on above:Performed By: #### BMP #### [place] [address] USACalcium [Mass/Vol]8.7 mg/dLNormal8.6-10.3The [facility] Physician GroupComment on above:Performed By: #### BMP #### [place] [address] USAChloride [Moles/Vol]106 mmol/GTxchjp70-662Lue [facility] Physician GroupComment on above:Performed By: #### BMP #### [place] [address] USACO2 [Moles/Vol]23.6 mmol/JVijquh21.0-31.0The [facility] Physician GroupComment on above:Performed By: #### BMP #### [place] [address] USACreatinine [Mass/Vol]1.15 mg/dLNormal0.70-1.30The [facility] Physician GroupComment on above:Performed By: #### BMP #### [place] [address] USACreatinine Clr Calc Bqwjpxrh69.31NormalThe [facility] Physician GroupComment on above:Result Comment: PERFORMED BY: [place] [id number] PATHOLOGIST LAST CHALKER ABIMAEL PEREIRA M.D.Performed By: #### BMP #### [place] [address] USAGFR/1.73 sq M.predicted MDRD (S/P/Bld) [Vol rate/Area] mL/min/{1.73_m2}NormalThe [facility] Physician GroupComment on above:Performed By: #### BMP #### [place] [address] USAGlucose [Mass/Vol]100 mg/bIAjqxnc64-159Uej [facility] Physician GroupComment on above:Result Comment: Random Glucose Reference Range is dependent on time and content of last meal. Glucose of more than 200 mg/dL in a nonstressed, ambulatory subject supports the diagnosis of Diabetes Mellitus. ADA recommended reference rangePerformed By: #### BMP #### [facility] [address] [place] [address] USAPotassium [Moles/Vol]3.9 mmol/LNormal3.5-5.1The [facility] Physician GroupComment on above:Performed By: #### BMP #### [facility] [address] [place] [address] USASodium [Moles/Vol]136 mmol/DJsnnhp188-413Afp [facility] Physician GroupComment on above:Performed By: #### BMP #### [facility] [address] [place] [address] USAUrea nitrogen [Mass/Vol]24 mg/dLNormal7-25The [facility] Physician GroupComment on above:Performed By: #### BMP #### [facility] [address] [place] [address] USABasophils Auto (Bld) [#/Vol]Ordered By: Melisa Miranda on 28-14-6164Lysxslcvl (Bld) [#/Vol]Automated basophil count0.0-0.2FHocking Valley Community HospitalBasophils/100 WBC Auto (Bld)Ordered By: Melisa Miranda on 17-17-7624Qogwxmosf/100 WBC (Bld)Automated basophil %.[facility] HospitalCalcium [Mass/volume] in Serum or PlasmaOrdered By: Melisa Miranda on 31-73-5405Knxxshc [Mass/Vol]Calcium [Mass/volume] in Serum or Plasma 8.6-10.3FHocking Valley Community HospitalCarbon dioxide, total [Moles/volume] in Serum or PlasmaOrdered By: Melisa Miranda on 59-59-6267AI2 [Moles/Vol]Carbon dioxide, total [Moles/volume] in Serum or Vlxysr34.0-31.0[facility] HospitalChloride [Moles/volume] in Serum or PlasmaOrdered By: Melisa Miranda on 13-95-0723Dlshjtvj [Moles/Vol]Chloride [Moles/volume] in Serum or Hzmvui02-612TwkrjmjgoMemorial Health System Marietta Memorial HospitalComplete Blood Count Auto Diffon 96-79-3365Swcepyvhu (Bld) [#/Vol]0.1 10*3/uLNormal0.0-0.2The [facility] Physician GroupComment on above:Result Comment: PERFORMED BY: [place] [id number] PATHOLOGIST LA[employer] CHALKER ABIMAEL PEREIRA M.D.Performed By: #### CMP #### [place] [address] USABasophils/100 WBC (Bld)0.7 %Normal.The [facility] Physician GroupComment on above:Performed By: #### CMP #### [place] [address] USAEosinophils (Bld) [#/Vol]0.3 10*3/uLNormal0.0-0.45The [facility] Physician GroupComment on above:Performed By: #### CMP #### [place] [address] USAEosinophils/100 WBC (Bld)3.5 %Normal.The [facility] Physician GroupComment on above:Performed By: #### CMP #### [place] [address] USAErythrocyte distribution width (RBC) [Ratio]14.8 %Normal 12.0-14.8The [facility] Physician GroupComment on above:Performed By: #### CMP #### [place] [address] USAHematocrit (Bld) [Volume fraction]31.5 %Low38.8-50.0The [facility] Physician GroupComment on above:Performed By: #### CMP #### [place] [address] USAHemoglobin (Bld) [Mass/Vol]10.8 g/dLLow13.0-17.0The [facility] Physician GroupComment on above:Performed By: #### CMP #### [place] [address] USALymphocytes (Bld) [#/Vol]2.1 10*3/uLNormal1.00-4.8The [facility] Physician GroupComment on above:Performed By: #### CMP #### [facility] [address] [place] [address] USALymphocytes/100 WBC (Bld)24.8 %Normal.The [facility] Physician GroupComment on above:Performed By: #### CMP #### [address]H (RBC) [Entitic mass]31.7 yrCsscbg00.5-35.2The [facility] Physician GroupComment on above:Performed By: #### CMP #### [place] [address] USAMCV (RBC) [Entitic vol]92.3 rUZwjijj54.5-101The [facility] Physician GroupComment on above:Performed By: #### CMP #### [place] [address] USAMean Corpuscular HGB Conc34.4 g/qCPwdhua62.5-35.6The [facility] Physician GroupComment on above:Performed By: #### CMP #### [place] [address] USAMonocytes (Bld) [#/Vol]0.5 10*3/uLNormal0.0-0.8The [facility] Physician GroupComment on above:Performed By: #### CMP #### [place] [address] USAMonocytes/100 WBC (Bld)16.90 %Normal0.00-20.00The [facility] Physician GroupComment on above:Performed By: #### CMP #### [place] [address] USAMonocytes/100 WBC (Bld)6.3 %Normal.The [facility] Physician GroupComment on above:Performed By: #### CMP #### [place] [address] USANeutrophils (Bld) [#/Vol]5.4 10*3/uLNormal1.8-7.7The [facility] Physician GroupComment on above:Performed By: #### CMP #### [facility] [address] [place] [address] USANeutrophils/100 WBC (Bld)64.7 %Normal.The [facility] Physician GroupComment on above:Performed By: #### CMP #### [facility] [address] [place] [address] USANRBC%0.1 /100{WBC}Normal0-0.5The [facility] Physician Group Comment on above:Performed By: #### CMP #### [facility] [address] [place] [address] USAPlatelet mean volume (Bld) [Entitic vol]6.6 fLNormal 6.6-10.1The [facility] Physician GroupComment on above:Performed By: #### CMP #### [facility] [address] [place] [address] USAPlatelets (Bld) [#/Vol]353 10*3/sPEfcclm580-729Ffd [facility] Physician GroupComment on above:Performed By: #### CMP #### [facility] [address] [place] [address] USARBC (Bld) [#/Vol]3.41 10*6/uLLow3.90-5.60The [facility] Physician GroupComment on above:Performed By: #### CMP #### [facility] [address] [place] [address] USAWBC (Bld) [#/Vol]8.3 10*3/uLNormal4.1-10.5The [facility] Physician GroupComment on above:Performed By: #### CMP #### [facility] [address] [place] [address] USACreatinine [Mass/volume] in Serum or PlasmaOrdered By: Melisa Miranda on 81-83-0172Qsndfgsbwc [Mass/Vol]Creatinine [Mass/volume] in Serum or Plasma0.70-1.30[facility] HospitalECG 12 lead ECGon 18-20-8133EPZ 12 lead ECGST. [facility] [place] [address] [place], [place] [id number] Electrocardiograph Report Signed Patient: Hardeep Traore MR#: [id number] : 1960 Acct:[id number] Age/Sex: 64 / M ADM Date: 01/17/25 Loc: ER Room: Type: [facility] ER Attending Dr: Ordering Provider: Melisa Miranda APRN Date of Service: 01/17/25 ECG/ECG 12 lead ECG: Extremity Injury, Upper Copies to: Test Reason : Blood Pressure : 172/80 mmHG Vent. Rate : 64 BPM Atrial Rate : 63 BPM P-R Int : * ms QRS Dur : 84 ms QT Int : 426 ms P-R-T Axes : * 94 73 degrees QTcB Int : 439 ms Junctional rhythm Rightward axis Cannot rule out Anterior infarct (cited on or before 26-Nov-2024) Abnormal ECG When compared with ECG of 26-Nov-2024 07:12, Junctional rhythm has replaced Sinus rhythm Questionable change in QRS axis T wave inversion no longer evident in Inferior leads Confirmed by Reginald Bruce DO ([id number]) on 01/19/2025 12:57:51 AM Referred By: Electronically Signed By: Reginald Bruce DO Transcribed By: MUS Signed By Reginald Bruce DO 5 [address]57[facility] Physician GroupEosinophils Auto (Bld) [#/Vol]Ordered By: Melisa Miranda on 80-49-5750Ifbqgopuntf (Bld) [#/Vol]Automated eosinophil count0.0-0.45[facility] HospitalEosinophils/100 WBC Auto (Bld) Ordered By: Melisa Miranda on 67-79-6913Qrzvwknfhsv/100 WBC (Bld)Automated eosinophil %.[facility] HospitalErythrocyte distribution width Auto (RBC) [Ratio]Ordered By: Melisa Miranda on 58-03-2782Mtyxirmcgli distribution width (RBC) [Ratio]Erythrocyte distribution width [Ratio] by Automated count12.0-14.8[facility] HospitalGlucose [Mass/volume] in Serum or PlasmaOrdered By: Melisa Miranda on 47-02-7570Qkspvgc [Mass/Vol] Glucose [Mass/volume] in Serum or Vhzqng09-868ZpzwvrwxiMemorial Health System [facility] Hospital Comment on above:ADA recommended reference rangeRandom Glucose Reference Range is dependent on time and content of last meal. Glucose of more than 200 mg/dL in a nonstressed, ambulatory subject supports the diagnosisof Diabetes Mellitus. Hematocrit Auto (Bld) [Volume fraction]Ordered By: Melisa Miranda on 01-17-2025 Hematocrit (Bld) [Volume fraction]Hematocrit [Volume Fraction] of Blood by Automated cxznzNoy60.8-50.0[facility] HospitalHemoglobin [Mass/volume] in BloodOrdered By: Melisa Miranda on 08-46-5162Dtuayzuqzx (Bld) [Mass/Vol]Hemoglobin [Mass/volume] in LnuuqIsv80.0-17.0[facility] HospitalINR in Platelet poor plasma by Coagulation assayOrdered By: Melisa Miranda on 63-85-1727UUX Coag (PPP) [Relative time]INR in Platelet poor plasma by Coagulation assayMemorial Health System Marietta Memorial HospitalComment on above:INR Therapeutic Range A) Pre- and Peroperative OAT started two weeks before surgery. NOT HIP SURGERY: 1.5 - 2.5 HIP SURGERY: 2 - 3B) Primary and secondary prevention of venous THROMBOSIS: 2 - 3C) Active venous thrombosis, pulmonary embolismand prevention of recurrent venous thrombosis: 2 - 3D) Prevention of arterial thromboembolismincluding patients with mechanical heart valves: 3 - 4.5 Leukocytes [#/volume] corrected for nucleated erythrocytes in Blood by Automated counOrdered By: Melisa Miranda on 48-74-0056KEN corrected for nucl RBC Auto (Bld) [#/Vol]Leukocytes [#/volume] corrected for nucleated erythrocytes in Blood by Automated coun4.1-10.5FHocking Valley Community HospitalLymphocytes Auto (Bld) [#/Vol]Ordered By: Melisa Miranda on 99-17-5967Ppahlaxpdbn (Bld) [#/Vol] Lymphocytes [#/volume] in Blood by Automated count1.00-4.8[facility] HospitalLymphocytes/100 WBC Auto (Bld)Ordered By: Melisa Miranda on 41-57-1946Cjryxzqpxxh/100 WBC (Bld)Lymphocytes/100 leukocytes in Blood by Automated count.[facility] HospitalMCH Auto (RBC) [Entitic mass] Ordered By: Melisa Miranda on 83-60-2463NVA (RBC) [Entitic mass]MCH [Entitic mass] by Automated count27.5-35.2FHocking Valley Community HospitalMCHC Auto (RBC) [Mass/Vol]Ordered By: Melisa Miranda on 82-59-2556WSZF (RBC) [Mass/Vol] MCHC [Mass/volume] by Automated count32.5-35.6FHocking Valley [facility] Hospital MCV Auto (RBC) [Entitic vol]Ordered By: Melisa Miranda on 38-83-8965PZH (RBC) [Entitic vol]MCV [Entitic volume] by Automated count83.5-101[facility] HospitalMonocyte distribution width [Entitic volume] in Blood by Automated Ordered By: Melisa Miranda on 43-04-5508Xdcebzdj distribution width Auto (Bld) [Entitic vol]Monocyte distribution width [Entitic volume] in Blood by Automated 0.00-20.00[facility] HospitalMonocytes Auto (Bld) [#/Vol]Ordered By: Melisa Miranda on 66-04-1604Ktcqaralv (Bld) [#/Vol]Automated blood monocyte count0.0-0.8[facility] HospitalMonocytes/100 WBC Auto (Bld) Ordered By: Melisa Miranda on 88-73-3044Txwazhimt/100 WBC (Bld)Automated monocyte %.[facility] HospitalNatriuretic peptide B [Mass/Vol] Ordered By: Melisa Miranda on 88-26-2410Lewwyikyfyu peptide B (Bld) [Mass/Vol] BNP ser/plasHigh5-100[facility] HospitalNeutrophils Auto (Bld) [#/Vol]Ordered By: Melisa Miranda on 72-36-5815Usrupcmhzqg (Bld) [#/Vol] Neutrophils [#/volume] in Blood by Automated count1.8-7.7FHocking Valley Community HospitalNeutrophils/100 WBC Auto (Bld)Ordered By: Melisa Miranda on 85-43-8263Tacclhojdxz/100 WBC (Bld)Automated neutrophil %.[facility] HospitalNo Panel InformationOrdered By: Melisa Miranda on 01-17-2025 Estimated GFR (CKD-EPI)> 60.0 mL/MinMemorial Health System Marietta Memorial HospitalPharmacy Creatinine Clearance (Chem58.31[facility] HospitalNucleated erythrocytes [Presence] in Blood by Automated countOrdered By: Melisa Miranda on 69-97-8319Fwjqdhllc RBC Auto Ql (Bld)Nucleated erythrocytes [Presence] in Blood by Automated count0-0.5FHocking Valley Community HospitalPartial Thromboplastin Timeon 62-06-3730vYOR Coag (Bld) [Time]33.2 vCfyybz07.1-36.5The [facility] Physician GroupComment on above:Result Comment: A hematocrit value greater than 55% may lead to inaccurate results in coagulation testing. Patients having hematocrit values >55% require a special collection tube for coagulation studies. Please contact the laboratory at [phone] for redraw instructions. PERFORMED BY: [address] [place] [address] PATHOLOGIST LAST CHALKER BAIMAEL PEREIRA M.D.Performed By: #### BMP #### [place] [address] USAPlatelet mean volume Auto (Bld) [Entitic vol]Ordered By: Melisa Miranda on 44-66-8585Yyyjbyyk mean volume (Bld) [Entitic vol]Platelet mean volume [Entitic volume] in Blood by Automated count6.6-10.1FHocking Valley Community HospitalPlatelets Auto (Bld) [#/Vol]Ordered By: Melisa Miranda on 99-86-9171Tkpdqcjzz (Bld) [#/Vol]Platelets [#/volume] in Blood by Automated -977JhxeaakecMemorial Health System Marietta Memorial HospitalPotassium [Moles/volume] in Serum or PlasmaOrdered By: Melisa Miranda on 74-31-7954Xrycgwtwj [Moles/Vol]Potassium [Moles/volume] in Serum or Plasma3.5-5.1FHocking Valley Community Hospital Prothrombin Time INRon 55-18-7015BTO Coag (PPP) [Relative time]1.0 {INR}Normal The [facility] Physician GroupComment on above:Result Comment: INR Therapeutic Range A) Pre- and Peroperative OAT started two weeks before surgery. NOT HIP SURGERY: 1.5 - 2.5 HIP SURGERY: 2 - 3 B) Primary and secondary prevention of venous THROMBOSIS: 2 - 3 C) Active venous thrombosis, pulmonary embolism and prevention of recurrent venous thrombosis: 2 - 3 D) Prevention of arterial thromboembolism including patients with mechanical heart valves: 3 - 4.5Performed By: #### BMP #### [facility] [address] [place] [address] USAPT Coag (PPP) [Time]10.9 sNormal9.0-12.9The [facility] Physician GroupComment on above:Result Comment: A hematocrit value greater than 55% may lead to inaccurate results in coagulation testing. Patients having hematocrit values >55% require a special collection tube for coagulation studies. Please contact the laboratory at [phone] for redraw instructions.Performed By: #### BMP #### [facility] [address] [place] [address] USAProthrombin time (PT)Ordered By: Melisa Miranda on 40-83-2466FX Coag (PPP) [Time]Prothrombin time (PT)9.0-12.9[facility] HospitalComment on above:A hematocrit value greater than 55% may lead to inaccurate results in coagulation testing. Patientshaving hematocrit values >55% require a special collection tube for coagulation studies. Please contact the laboratory at [phone] for redraw instructions.RBC Auto (Bld) [#/Vol]Ordered By: Melisa Miranda on 18-27-6785XLQ (Bld) [#/Vol]Erythrocytes [#/volume] in Blood by Automated countLow3.90-5.60[facility]omerene Hospitalerum or plasma anion gap determinationOrdered By: Melisa Miranda on 50-54-1672Bcdri gap [Moles/Vol]Serum or plasma anion gap determination6.0-15.0[facility]ome[facility] Hospitalodium [Moles/volume] in Serum or PlasmaOrdered By: Melisa Miranda on 98-41-7415Zzlllo [Moles/Vol]Sodium [Moles/volume] in Serum or Plasma 136-145[facility] HospitalTroponin I High Sensitivityon 01-17-2025 Troponin I High Sybrxrjswwj34Pvaiwf9-21Njn [facility] Physician GroupComment on above:Result Comment: The Troponin units of report have been changed to meet the Chest Pain Accreditation requirement, element EC5.M1l2. Troponin units are changed from pg/ml to ng/L. Also, the decimal is removed and results are in whole numbers. PERFORMED BY: [place] [id number] PATHOLOGIST LAST CHALKER ABIMAEL PEREIRA M.D.Performed By: #### BMP #### [place] [address] USATroponin I.cardiac [Mass/volume] in Serum or Plasma by Detection limit <= 0.01 ng/Ordered By: Melisa Miranda on 35-85-3449Iluaslrd I.cardiac DL <= 0.01 ng/mL [Mass/Vol]Troponin I.cardiac [Mass/volume] in Serum or Plasma by Detection limit <= 0.01 ng/0-20[facility] Comment on above:The Troponin units of report have been changed to meet the Chest Pain Accreditation requirement, element EC5.M1l2. Troponin units are changed from pg/ml to ng/L. Also, the decimal is removed and results are in whole numbers.Urea nitrogen [Mass/volume] in Serum or PlasmaOrdered By: Melisa Miranda on 52-94-3846Bwaw nitrogen [Mass/Vol]Urea nitrogen [Mass/volume] in Serum or Plasma7-25[facility] HospitalWBC Auto (Bld) [#/Vol] Ordered By: Melisa Miranda on 94-70-5711QZB (Bld) [#/Vol]Leukocytes [#/volume] in Blood by Automated count4.1-10.5FHocking Valley Community HospitalX-ray report Ordered By: Francisco Shafer on 79-98-9843Kjnsn reportST. [facility] [place] [address] [place] [address] XRay Report Signed Patient: Hardeep Traore MR#: [id number] : 1960 Acct:[id number] Age/Sex: 64 / M ADM Date: 5 Loc: ER Room: Type: [facility] ER Attending Dr: Copies to: Melisa Miranda APRN~ Ordering Provider: Melisa Miranda APRN Date of Service: 01/17/25 XR/XR chest 2V*: Extremity Injury, Upper XR chest 2V* 01/17/2025 3:52 PM SIGNS AND SYMPTOMS: Left arm pain, dizziness PROTOCOL: Frontal and lateral radiograph of the chest COMPARISON: 11/24/2024 FINDINGS: The trachea is midline. The heart and mediastinal structures are within normal limits. There is scarring along the minor fissure laterally on the right which is unchanged. The lung parenchyma is clear, otherwise. The bony thorax is intact. Degenerative changes are noted in the thoracic spine. XR/XR chest 2V* IMPRESSION: There is scarring along the minor fissure laterally on the right which is unchanged. The lung parenchyma is clear, otherwise. Impression dictated by: Francisco Shafer M.D.01/17/2025 4:25 PM Dictation Location: [place] [address] Transcribed By: [facility] 01/17/251624 Dictated By: Francisco Shafer II, MD 01/17/251622 Signed By: 01/17/25 [facility]5 [facility] Work Phone: XR chest 2V*on 79-29-8759QT chest 2V*[facility] [place] [address] XRay Report Signed Patient: Hardeep Traore MR#: [id number] : 1960 Acct:[id number] Age/Sex: 64 / M ADM Date: 01/17/25 Loc: ER Room: Type: [facility] ER Attending Dr: Copies to: Melisa Miranda APRN Ordering Provider: Melisa Miranda APRN Date of Service: 01/17/25 XR/XR chest 2V*: Extremity Injury, Upper XR chest 2V* 01/17/2025 3:52 PM SIGNS AND SYMPTOMS: Left arm pain, dizziness PROTOCOL: Frontal and lateral radiograph of the chest COMPARISON: 11/24/2024 FINDINGS: The trachea is midline. The heart and mediastinal structures are within normal limits. There is scarring along the minor fissure laterally on the right which is unchanged. The lung parenchyma is clear, otherwise. The bony thorax is intact. Degenerative changes are noted in the thoracic spine. XR/XR chest 2V* IMPRESSION: There is scarring along the minor fissure laterally on the right which is unchanged. The lung parenchyma is clear, otherwise. Impression dictated by: Francisco Shafer M.D.01/17/2025 4:25 PM Dictation Location: [place] [address] Transcribed By: [facility] 01/17/251624 Dictated By: Francisco Shafer II, MD 01/17/25 162 Signed By: 01/17/25 1625[facility] Physician GroupaPTT in Platelet poor plasma by Coagulation assayOrdered By: Melisa Miranda on 32-59-4772fRCB Coag (PPP) [Time] Activated partial thromboplastin time (aPTT) in platelet poor plasma by coagulation a25.1-36.5FHocking Valley Community HospitalComment on above:A hematocrit value greater than 55% may lead to inaccurate results in coagulation testing. Patientshaving hematocrit values >55% require a special collection tube for coagulation studies. Please contact the laboratory at [phone] for redraw instructions.US arterial pvr rest [place] 83-82-3479BV arterial pvr rest [facility] [place] [address] Ultrasound Report Signed Patient: Hardeep Traore MR#: [id number] : 1960 Acct:[id number] Age/Sex: 64 / M ADM Date: 01/09/25 Loc: Room: Type: [facility] Attending Dr: Tyson Angeles MD Ordering Provider: Tyson Angeles MD Date of Service: 01/09/25 US/US arterial pvr rest LE: I73.9 - Peripheral vascular disease, unspecified Copies to: Tyson Angeles MD LOWER EXTREMITY SEGMENTAL ARTERIAL DOPSCAN (PVR) INDICATION: Left leg claudication PROCEDURE: Right arm blood pressure is 167 , left is 174 . Pressures throughout the right leg are 81 at the low thigh, 71 at the calf, 74 at the ankle using the posterior tibial artery, and 76 at the ankle using the dorsalis pedis artery with ankle-brachial index of 0.43 0.44 . Pressures throughout the left leg are 114 low thigh, 110 at the calf and 90 at the ankle using the posterior tibial artery, and 98 at the ankle using the dorsalis pedis artery with ankle- brachial index of 0.52 0.56 . Wave forms by plethysmography are moderately blunted bilaterally US/US arterial pvr rest LE IMPRESSION: Moderately severe bilateral peripheral vascular occlusive disease at rest. This is either due to aortoiliac or proximal superficial femoral artery occlusive disease. Findings could account for symptoms of vasculogenic claudication. Impression dictated by: Deandre Rolle M.D.01/09/2025 2:00 PM Dictation Location: [place] [address] Tech: Ngoiz Chakraborty Transcribed By: RANJEET 01/09/25 1400 Dictated By: Deandre Rolle MD 01/09/25 1353 Signed By: 01/09/25 1400[facility] CentralEMG 1 Extremeityon 01-02-2025 EMG/NCS LUE Normal [facility] HospitalNVC 7-8 Nerveson 78-43-1162QUR/NCS LUE Normal [facility] HospitalBasic Metabolic Panelon 11-27-2024 Anion gap [Moles/Vol]8.9 mmol/LNormal6.0-15.0The [facility] Physician [facility] Comment on above:Performed By: #### NIDHI, AERC #### [facility] [address] [place] [address] USACalcium [Mass/Vol]8.0 mg/dLLow8.6-10.3The [facility] Physician GroupComment on above:Performed By: #### NIDHI, AERC #### [facility] [address] [place] [address] USAChloride [Moles/Vol]99 mmol/HNrmfab33-922Qqf [facility] Physician GroupComment on above:Performed By: #### GS, AERC #### [facility] [address] [place] [address] USACO2 [Moles/Vol]26.5 mmol/TKdcjcz05.0-31.0The [facility] Physician GroupComment on above:Performed By: #### GS, AERC #### [facility] [address] [place] [address] USACreatinine [Mass/Vol]1.41 mg/dLHigh0.70-1.30The [facility] Physician GroupComment on above:Performed By: #### GS, AERC #### [facility] [address] [place] [address] USACreatinine Clr Calc Sekktmts43.94NormMayo Clinic Florida Physician GroupComment on above:Result Comment: PERFORMED BY: [place] [id number] PATHOLOGIST LAST CHALKER ABIMAEL PEREIRA M.D.Performed By: #### GS, AERC #### [place] [address] USAEstimated GFR55.995 mL/MinNoLifeBrite Community Hospital [facility] Physician GroupComment on above:Performed By: #### GS, AERC #### [facility] [address] [place] [address] USAGlucose [Mass/Vol]95 mg/cMSfxpff64-674Lpg [facility] Physician GroupComment on above:Result Comment: Random Glucose Reference Range is dependent on time and content of last meal. Glucose of more than 200 mg/dL in a nonstressed, ambulatory subject supports the diagnosis of Diabetes Mellitus. ADA recommended reference rangePerformed By: #### GS, AERC #### [facility] [address] [place] [address] USAPotassium [Moles/Vol]3.4 mmol/LLow3.5-5.1The [facility] Physician GroupComment on above:Performed By: #### GS, AERC #### [facility] [address] [place] [address] USASodium [Moles/Vol]131 mmol/EEfw165-021Mkj [facility] Physician GroupComment on above:Performed By: #### GS, AERC #### [facility] [address] [place] [address] USAUrea nitrogen [Mass/Vol]23 mg/dLNormal7-25The [facility] Physician GroupComment on above:Performed By: #### GS, AERC #### [facility] [address] [place] [id number] USACalcium [Mass/volume] in Serum or PlasmaOrdered By: Edmundo Hernandes on 67-80-0871Uaodybx [Mass/Vol]Calcium [Mass/volume] in Serum or Plasma Low8.6-10.3FHocking Valley Community HospitalCarbon dioxide, total [Moles/volume] in Serum or PlasmaOrdered By: Edmundo Hernandes on 66-53-6964CX2 [Moles/Vol]Carbon dioxide, total [Moles/volume] in Serum or Mgwlal40.0-31.0[facility] HospitalChloride [Moles/volume] in Serum or PlasmaOrdered By: Edmundo Hernandes on 02-97-7504Onxawucl [Moles/Vol]Chloride [Moles/volume] in Serum or Plasma 98-107[facility] HospitalCreatinine [Mass/volume] in Serum or PlasmaOrdered By: Edmundo Hernandes on 92-65-0402Qspcqpsnxu [Mass/Vol]Creatinine [Mass/volume] in Serum or PlasmaHigh0.70-1.30[facility] Glucose [Mass/volume] in Serum or PlasmaOrdered By: Edmundo Hernandes on 11-27-2024 Glucose [Mass/Vol]Glucose [Mass/volume] in Serum or Zctpft83-719IqeisyeorMemorial Health System Marietta Memorial HospitalComment on above:ADA recommended reference rangeRandom Glucose Reference Range is dependent on time and content of last meal. Glucose of more than 200 mg/dL in a nonstressed, ambulatory subject supports the diagnosisof Diabetes Mellitus.No Panel InformationOrdered By: Edmundo Hernandes on 04-71-8708Oqkkhcjuc GFR (CKD-EPI)55.995 mL/MinMemorial Health System [facility]etta Memorial Hospital [facility]acy Creatinine Clearance (Chem47.94[facility] Potassium [Moles/volume] in Serum or PlasmaOrdered By: Edmundo Hernandes on 99-22-0414Ystegwugx [Moles/Vol]Potassium [Moles/volume] in Serum or PlasmaLow 3.5-5.1FGood Samaritan Hospitalerum or plasma anion gap determination Ordered By: Edmundo Hernandes on 71-76-0332Isnqe gap [Moles/Vol]Serum or plasma anion gap determination6.0-15.0[facility] Hospitalodium [Moles/volume] in Serum or PlasmaOrdered By: Edmundo Hernandes on 82-42-4312Ynwcrw [Moles/Vol] Sodium [Moles/volume] in Serum or VntlikLic562-157MpcdnywcmMemorial Health System Marietta Memorial HospitalUrea nitrogen [Mass/volume] in Serum or PlasmaOrdered By: Edmundo Hernandes on 92-77-7715Iboq nitrogen [Mass/Vol]Urea nitrogen [Mass/volume] in Serum or Plasma 7-25[facility] HospitalAlanine aminotransferase [Enzymatic activity/volume] in Serum or PlasmaOrdered By: Cornel Negron on 27-75-8226IEH [Catalytic activity/Vol]Alanine aminotransferase [Enzymatic activity/volume] in Serum or Plasma7-52[facility] HospitalAlbumin [Mass/volume] in Serum or Plasma by Bromocresol green (BCG) dye binding methoOrdered By: Cornel Negron on 37-19-1540Kqusolp BCG dye [Mass/Vol]Albumin [Mass/volume] in Serum or Plasma by Bromocresol green (BCG) dye binding methoLow3.5-5.7FHocking Valley Community HospitalAlkaline phosphatase [Enzymatic activity/volume] in Serum or PlasmaOrdered By: Cornel Negron on 35-73-3664FAE [Catalytic activity/Vol]Alkaline phosphatase [Enzymatic activity/volume] in Serum or Txvccc98-215FkbqmpnyoMemorial Health System Marietta Memorial HospitalAspartate aminotransferase [Enzymatic activity/volume] in Serum or PlasmaOrdered By: Cornel Negron on 29-89-0881UGG [Catalytic activity/Vol]Aspartate aminotransferase [Enzymatic activity/volume] in Serum or Zangiz13-74ZyqikjtotMemorial Health System Marietta Memorial HospitalBasophils Auto (Bld) [#/Vol]Ordered By: Cornel Negron on 32-54-2687Dyzjwdgyt (Bld) [#/Vol]Automated basophil count 0.0-0.2FHocking Valley Community HospitalBasophils/100 WBC Auto (Bld)Ordered By: Cornel Negron on 25-61-5284Ltiqgyynw/100 WBC (Bld)Automated basophil %.[facility] HospitalBilirubin.total [Mass/volume] in Serum or PlasmaOrdered By: Cornel Negron on 86-89-8842Gucgwijsm [Mass/Vol]Bilirubin.total [Mass/volume] in Serum or Plasma0.3-1.0FirMetroHealth Cleveland Heights Medical CenterComplete Blood Count Auto Diffon 73-32-4264Fdcggajxv (Bld) [#/Vol]0.1 10*3/uLNormal0.0-0.2The [facility] Physician GroupComment on above:Result Comment: PERFORMED BY: [place] [id number] PATHOLOGIST LAST CHALKER ABIMAEL PEREIRA M.D.Performed By: #### BMP #### [place] [address] USABasophils/100 WBC (Bld)0.7 %Normal.The [facility] Physician GroupComment on above:Performed By: #### BMP #### [place] [address] USAEosinophils (Bld) [#/Vol]0.1 10*3/uLNormal0.0-0.45The [facility] Physician GroupComment on above:Performed By: #### BMP #### [place] [address] USAEosinophils/100 WBC (Bld)1.4 %Normal.The [facility] Physician GroupComment on above:Performed By: #### BMP #### [place] [address] USAErythrocyte distribution width (RBC) [Ratio]14.7 %Normal 12.0-14.8The [facility] Physician GroupComment on above:Performed By: #### BMP #### [place] [address] USAHematocrit (Bld) [Volume fraction]34.7 %Low38.8-50.0The [facility] Physician GroupComment on above:Performed By: #### BMP #### [place] [address] USAHemoglobin (Bld) [Mass/Vol]11.7 g/dLLow13.0-17.0The [facility] Physician GroupComment on above:Performed By: #### BMP #### [place] [address] USALymphocytes (Bld) [#/Vol]2.0 10*3/uLNormal1.00-4.8The [facility] Physician GroupComment on above:Performed By: #### BMP #### [place] [address] USALymphocytes/100 WBC (Bld)20.8 %Normal.The [facility] Physician GroupComment on above:Performed By: #### BMP #### [place] [address] USAMCH (RBC) [Entitic mass]32.5 ytWzskal35.5-35.2The [facility] Physician GroupComment on above:Performed By: #### BMP #### [place] [address] USAMCV (RBC) [Entitic vol]96.5 bEBtihlz79.5-101The [facility] Physician GroupComment on above:Performed By: #### BMP #### [place] [address] USAMean Corpuscular HGB Conc33.7 g/iFBvruiq84.5-35.6The [facility] Physician GroupComment on above:Performed By: #### BMP #### [place] [address] USAMonocytes (Bld) [#/Vol]0.7 10*3/uLNormal0.0-0.8The [facility] Physician GroupComment on above:Performed By: #### BMP #### [place] [address] USAMonocytes/100 WBC (Bld)7.4 %Normal.The [facility] Physician GroupComment on above:Performed By: #### BMP #### [facility] [address] [place] [address] USANeutrophils (Bld) [#/Vol]6.9 10*3/uLNormal1.8-7.7The [facility] Physician GroupComment on above:Performed By: #### BMP #### [facility] [address] [place] [address] USANeutrophils/100 WBC (Bld)69.7 %Normal.The [facility] Physician GroupComment on above:Performed By: #### BMP #### [facility] [address] [place] [address] USANRBC%0.0 /100{WBC}Normal0-0.5The [facility] Physician Group Comment on above:Performed By: #### BMP #### [facility] [address] [place] [address] USAPlatelet mean volume (Bld) [Entitic vol]6.9 fLNormal 6.6-10.1The [facility] Physician GroupComment on above:Performed By: #### BMP #### [facility] [address] [place] [address] USAPlatelets (Bld) [#/Vol]342 10*3/wODwtmtv236-362Cei [facility] Physician GroupComment on above:Performed By: #### BMP #### [facility] [address] [place] [address] USARBC (Bld) [#/Vol]3.59 10*6/uLLow3.90-5.60The [facility] Physician GroupComment on above:Performed By: #### BMP #### [facility] [address] [place] [address] USAWBC (Bld) [#/Vol]9.8 10*3/uLNormal4.1-10.5The [facility] Physician GroupComment on above:Performed By: #### BMP #### [place] [address] USAComprehensive Metabolic Panelon 29-55-2992Maftdlw [Mass/Vol]2.9 g/dLLow3.5-5.7The [facility] Physician GroupComment on above: Performed By: #### CMP #### [place] [address] USAAlbumin/Globulin [Mass ratio]1.2 {ratio}NormalThe [facility] Physician GroupComment on above:Performed By: #### CMP #### [place] [address] USAALP [Catalytic activity/Vol]80 U/JQgroad36-620Itw [facility] Physician GroupComment on above:Performed By: #### CMP #### [place] [address] USAALT [Catalytic activity/Vol]40 U/LNormal7-52The [facility] Physician GroupComment on above:Performed By: #### CMP #### [place] [address] USAAnion gap [Moles/Vol]10.0 mmol/LNormal6.0-15.0The [facility] Physician GroupComment on above:Performed By: #### CMP #### [place] [address] USAAST [Catalytic activity/Vol]28 U/CLaohoy61-39Ikq [facility] Physician GroupComment on above:Performed By: #### CMP #### [place] [address] USABilirubin [Mass/Vol]0.6 mg/dLNormal0.3-1.0The [facility] Physician GroupComment on above:Performed By: #### CMP #### [facility] [address] [place] [address] USACalcium [Mass/Vol]8.3 mg/dLLow8.6-10.3The [facility] Physician GroupComment on above:Performed By: #### CMP #### [place] [address] USAChloride [Moles/Vol]101 mmol/ROoflzv15-225Ejg [facility] Physician GroupComment on above:Performed By: #### CMP #### [place] [address] USACO2 [Moles/Vol]27.9 mmol/RXbsqtm16.0-31.0The [facility] Physician GroupComment on above:Performed By: #### CMP #### [place] [address] USACreatinine [Mass/Vol]1.29 mg/dLNormal0.70-1.30The [facility] Physician GroupComment on above:Performed By: #### CMP #### [place] [address] USACreatinine Clr Calc Kjhevgiv28.56NormMayo Clinic Florida Physician GroupComment on above:Result Comment: PERFORMED BY: [place] [id number] PATHOLOGIST LAST CHALKER ABIMAEL PEREIRA M.D.Performed By: #### CMP #### [place] [address] USAGFR/1.73 sq M.predicted MDRD (S/P/Bld) [Vol rate/Area] mL/min/{1.73_m2}NormalThe [facility] Physician [facility] CentralComment on above:Performed By: #### CMP #### [place] [address] USAGlobulin (S) [Mass/Vol]2.4 g/dLNoLifeBrite Community Hospital of [facility] Physician [facility] CentralComment on above:Performed By: #### CMP #### [place] [address] USAGlucose [Mass/Vol]89 mg/vIXfwoxg72-053Oro [facility] Physician GroupComment on above:Result Comment: Random Glucose Reference Range is dependent on time and content of last meal. Glucose of more than 200 mg/dL in a nonstressed, ambulatory subject supports the diagnosis of Diabetes Mellitus. ADA recommended reference rangePerformed By: #### CMP #### [place] [address] USAPotassium [Moles/Vol]3.9 mmol/LNormal3.5-5.1The [facility] Physician GroupComment on above:Performed By: #### CMP #### [facility] [address] [place] [address] USAProtein [Mass/Vol]5.3 g/dLLow6.4-8.9The [facility] Physician GroupComment on above:Performed By: #### CMP #### [facility] [address] [place] [address] USASodium [Moles/Vol]135 mmol/PPko195-664Efa [facility] Physician GroupComment on above:Performed By: #### CMP #### [facility] [address] [place] [address] USAUrea nitrogen [Mass/Vol]31 mg/dLHigh7-25The [facility] Physician GroupComment on above:Performed By: #### CMP #### [facility] [address] [place] [address] USAECG 12 lead ECGon 69-31-4315RIT 12 [facility] [place] [address] [place] [address] Electrocardiograph Report Signed Patient: Hardeep Traore MR#: [id number] : 1960 Acct:[id number] Age/Sex: 64 / M ADM Date: 11/24/24 Loc: Room: [address] [place] [address] Type: ADM IN Attending Dr: Edmundo Hernandes MD Ordering Provider: Cornel Negron MD Date of Service: 11/26/24 ECG/ECG 12 lead ECG: Post Angioplasty Procedure in AM Copies to: Test Reason : Blood Pressure : */* mmHG Vent. Rate : 69 BPM Atrial Rate : 69 BPM P-R Int : 182 ms QRS Dur : 88 ms QT Int : 430 ms P-R-T Axes : 69 -6 1 degrees QTcB Int : 460 ms Normal sinus rhythm Minimal voltage criteria for LVH, may be normal variant ( [place] product ) Abnormal ECG Confirmed by Lorena Cross ([id number]) on 11/26/2024 6:11:39 PM Referred By: Electronically Signed By: Lorena Cross Transcribed By: MUS Signed By Lorena Cross MD [id number] Physician GroupEosinophils Auto (Bld) [#/Vol]Ordered By: Cornel Negron on 86-24-5133Pyttpwbtceb (Bld) [#/Vol]Automated eosinophil count0.0-0.45[facility] HospitalEosinophils/100 WBC Auto (Bld) Ordered By: Cornel Negron on 21-68-3480Xbbqivlzegj/100 WBC (Bld)Automated eosinophil %.[facility] HospitalErythrocyte distribution width Auto (RBC) [Ratio]Ordered By: Cornel Negron on 81-47-3324Jmximgdydxg distribution width (RBC) [Ratio]Erythrocyte distribution width [Ratio] by Automated count 12.0-14.8[facility] HospitalGlobulin Calc (S) [Mass/Vol]Ordered By: Cornel Negron on 28-28-2406Nqiezyop (S) [Mass/Vol]Serum globulin measurement by calculation (mass/volume)[facility] HospitalHematocrit Auto (Bld) [Volume fraction]Ordered By: Cornel Negron on 91-69-0687Tyiuesxrzn (Bld) [Volume fraction]Hematocrit [Volume Fraction] of Blood by Automated countLow 38.8-50.0[facility] HospitalHemoglobin [Mass/volume] in Blood Ordered By: Cornle Negron on 80-18-3894Oxwcttwmin (Bld) [Mass/Vol]Hemoglobin [Mass/volume] in YjlcnBgf34.0-17.0[facility] HospitalLeukocytes [#/volume] corrected for nucleated erythrocytes in Blood by Automated coun Ordered By: Cornel Negron on 27-10-7851DTP corrected for nucl RBC Auto (Bld) [#/Vol]Leukocytes [#/volume] corrected for nucleated erythrocytes in Blood by Automated coun4.1-10.5FHocking Valley Community HospitalLymphocytes Auto (Bld) [#/Vol]Ordered By: Cornel Negron on 19-88-4818Lnhapetoxvx (Bld) [#/Vol] Lymphocytes [#/volume] in Blood by Automated count1.00-4.8[facility] HospitalLymphocytes/100 WBC Auto (Bld)Ordered By: Cornel Negron on 90-02-1883Wwbqolrnfwa/100 WBC (Bld)Lymphocytes/100 leukocytes in Blood by Automated count.[facility] HospitalMCH Auto (RBC) [Entitic mass] Ordered By: Cornel Negron on 94-18-3821EVJ (RBC) [Entitic mass]MCH [Entitic mass] by Automated count27.5-35.2FHocking Valley Community HospitalMCHC Auto (RBC) [Mass/Vol]Ordered By: Cornel Negron on 73-80-8628QXGX (RBC) [Mass/Vol]MCHC [Mass/volume] by Automated count32.5-35.6FHocking Valley Community HospitalMCV Auto (RBC) [Entitic vol]Ordered By: Cornel Negron on 40-09-7476RVO (RBC) [Entitic vol]MCV [Entitic volume] by Automated count83.5-101[facility] HospitalMonocytes Auto (Bld) [#/Vol]Ordered By: Cornel Negron on 11-26-2024 Monocytes (Bld) [#/Vol]Automated blood monocyte count0.0-0.8[facility] HospitalMonocytes/100 WBC Auto (Bld)Ordered By: Cornel Negron on 11-26-2024 Monocytes/100 WBC (Bld)Automated monocyte %.[facility] Neutrophils Auto (Bld) [#/Vol]Ordered By: Cornel Negron on 11-14-6755Nvlnhezjdna (Bld) [#/Vol]Neutrophils [#/volume] in Blood by Automated count1.8-7.7FHocking Valley Community HospitalNeutrophils/100 WBC Auto (Bld)Ordered By: Cornel Negron on 31-38-0314Asfsuvpjgtf/100 WBC (Bld)Automated neutrophil %.[facility] HospitalNucleated erythrocytes [Presence] in Blood by Automated count Ordered By: Cornel Negron on 98-90-2054Gxkyzjqib RBC Auto Ql (Bld)Nucleated erythrocytes [Presence] in Blood by Automated count0-0.5FHocking Valley Community HospitalPlatelet mean volume Auto (Bld) [Entitic vol]Ordered By: Cornel Negron on 45-22-8322Gjaaurei mean volume (Bld) [Entitic vol]Platelet mean volume [Entitic volume] in Blood by Automated count6.6-10.1FHocking Valley Community HospitalPlatelets Auto (Bld) [#/Vol]Ordered By: Cornel Negron on 11-26-2024 Platelets (Bld) [#/Vol]Platelets [#/volume] in Blood by Automated -477 [facility] HospitalProtein [Mass/volume] in Serum or PlasmaOrdered By: Cornel Negron on 73-19-1123Vjwnzjd [Mass/Vol]Protein [Mass/volume] in Serum or PlasmaLow6.4-8.9[facility] HospitalRBC Auto (Bld) [#/Vol] Ordered By: Cornel Negron on 34-59-3660DBG (Bld) [#/Vol]Erythrocytes [#/volume] in Blood by Automated countLow3.90-5.60Pomerene Hospitalerum or plasma albumin/globulin mass ratioOrdered By: Cornel Negron on 11-26-2024 Albumin/Globulin [Mass ratio]Serum or plasma albumin/globulin mass ratio [facility] HospitalTroponin I High Sensitivityon 11-26-2024 Troponin I High Mziuuwinuhs734.9 pg/mLOff scale high0.0-20.0The [facility] Physician GroupComment on above:Result Comment: Critical Result : Called to and read back by: CLAIR LAFLEUR at: 11/26/2024 06:01:38 by:[id number] PERFORMED BY: [place] [id number] PATHOLOGIST [employer] CHALKER ABIMAEL PEREIRA M.D.Performed By: #### BMP #### [place] [address] USATroponin I.cardiac [Mass/volume] in Serum or Plasma by Detection limit <= 0.01 ng/Ordered By: Cornel Negron on 84-25-0160Xbrhqimf I.cardiac DL <= 0.01 ng/mL [Mass/Vol]Troponin I.cardiac [Mass/volume] in Serum or Plasma by Detection limit <= 0.01 ng/Critically high0.0-20.0[facility] HospitalComment on above:Critical Result : Called to and read back by: CLAIR LAFLEUR at: 11/26/2024 06:01:38 by:[id number] Auto (Bld) [#/Vol] Ordered By: Cornel Negron on 75-67-0721SGY (Bld) [#/Vol]Leukocytes [#/volume] in Blood by Automated count4.1-10.5FHocking Valley Community HospitalBasic Metabolic Panelon 53-61-9100Pmswy gap [Moles/Vol]11.6 mmol/LNormal6.0-15.0The [facility] Physician GroupComment on above:Performed By: #### GS, AERC #### [place] [address] USACalcium [Mass/Vol]8.6 mg/dLNormal8.6-10.3The [facility] Physician GroupComment on above:Performed By: #### NIDHI, AERC #### [place] [address] USAChloride [Moles/Vol]92 mmol/BAdx49-973Jfp [facility] Physician GroupComment on above:Performed By: #### NIDHI, AERC #### [place] [address] USACO2 [Moles/Vol]29.5 mmol/KXbuiri45.0-31.0The [facility] Physician GroupComment on above:Performed By: #### GS, AERC #### [place] [address] USACreatinine [Mass/Vol]1.29 mg/dLNormal0.70-1.30The [facility] Physician [facility] CentralComment on above:Performed By: #### GS, AERC #### [place] [address] USACreatinine Clr Calc Tonfkijc70.56NormalThe [facility] Physician [facility] CentralComment on above:Result Comment: PERFORMED BY: [place] [id number] PATHOLOGIST [employer] ABIMAEL PEREIRA M.D.Performed By: #### NIDHI, AERC #### [place] [address] USAGFR/1.73 sq M.predicted MDRD (S/P/Bld) [Vol rate/Area] mL/min/{1.73_m2}NormalThe [facility] Physician GroupComment on above:Performed By: #### NIDHI, AERC #### [facility] [address] [place] [address] USAGlucose [Mass/Vol]101 mg/dSWuib14-682Bgc [facility] Physician GroupComment on above:Result Comment: Random Glucose Reference Range is dependent on time and content of last meal. Glucose of more than 200 mg/dL in a nonstressed, ambulatory subject supports the diagnosis of Diabetes Mellitus. ADA recommended reference rangePerformed By: #### NIDHI, AERC #### [place] [address] USAPotassium [Moles/Vol]3.1 mmol/LLow3.5-5.1The [facility] Physician GroupComment on above:Performed By: #### NIDHI, AERC #### [place] [address] USASodium [Moles/Vol]130 mmol/NNbv218-151Lvr [facility] Physician GroupComment on above:Performed By: #### NIDHI, AERC #### [place] [address] USAUrea nitrogen [Mass/Vol]29 mg/dLHigh7-25The [facility] Physician GroupComment on above:Performed By: #### NIDHI, AERC #### [place] [address] USAECG 12 lead ECGon 89-47-6065YNQ 12 lead ECGST[facility] [place] [address] [place] [address] Electrocardiograph Report Signed Patient: Hardeep Traore MR#: [id number] : 1960 Acct:[id number] Age/Sex: 64 / M ADM Date: 11/24/24 Loc: Room: [address] [place] [address] Type: ADM IN Attending Dr: Edmundo Hernandes MD Ordering Provider: Cornel Negron MD Date of Service: 11/25/24 ECG/ECG 12 lead ECG: Post Angioplasty Procedure Copies to: Test Reason : Blood Pressure : */* mmHG Vent. Rate : 64 BPM Atrial Rate : 64 BPM P-R Int : 192 ms QRS Dur : 96 ms QT Int : 474 ms P-R-T Axes : 41 88 73 degrees QTcB Int : 489 ms Normal sinus rhythm Nonspecific ST and T wave abnormality Prolonged QT Abnormal ECG Confirmed by Lorena Cross ([id number]) on 11/26/2024 6:14:44 PM Referred By: Electronically Signed By: Lorena Cross Transcribed By: MUS Signed By Lorena Cross MD 4 1814[facility] MypzhP7T with Estimated Average Gluon 01-24-8124Nnvrxyu [Mass/Vol]120 mg/dLNoLifeBrite [facility] Physician GroupComment on above:Result Comment: PERFORMED BY: [place] [id number] PATHOLOGIST [employer] ABIMAEL PEREIRA M.D.Performed By: #### CMP, CBC #### [facility] [address] [place] [address] POJKoR7m (Bld) [Mass fraction]5.8 %High4.3-5.6The [facility] Physician GroupComment on above:Result Comment: Increased risk for diabetes: 5.7 - 6.4 diabetes: >6.4 glycemic control for adults with diabetes: <7.0Performed By: #### CMP, CBC #### [facility] [address] [place], [place] [id number] USAAerobic Cultureon 93-96-3499Swmblsv CultureORGANISM: Malaika albicans (O:CANALB) Quantity of Growth Light Growth Gram Stain Result 4+ Gram Positive Cocci 2+ Gram Positive Bacilli Rare White Blood Cells Rare Yeast Like Elements 2+ Epithelial Cells PERFORMED BY: [place] [id number] PATHOLOGIST LA[employer] CH[employer]ER ABIMAEL PEREIRA M.D.NormalThe [facility] Physician GroupComment on above: Performed By: #### GS, AERC #### [facility] [address] [place] [address] USAAldosteroneon 07-88-1806Ktrorprkrfp06.6 ng/dLNormal 0.0-30.0The [facility] Physician GroupComment on above:Result Comment: This test was developed and its performance characteristics determined by [facility]. It has not been cleared or approved by the Food and Drug Administration. Performed at: [facility] Lab[address] [id number] [employer] Machine Tender Helper: Jenn Brandt MD, Phone: [phone] PERFORMED BY: [place] [id number] PATHOLOGIST LA[employer] CHALKER ABIMAEL PEREIRA M.D.Performed By: #### GS, AERC #### [place] [address] USAB-Type Natriuretic Peptideon 60-77-4579Rdavrdhuzjs peptide B (Bld) [Mass/Vol]2223.0 pg/mLHigh5-100The [facility] Physician GroupComment on above:Result Comment: PERFORMED BY: [place] [id number] PATHOLOGIST LA[employer] CHALKER ABIMAEL PEREIRA M.D.Performed By: #### CMP #### [place] [id number] USABacteria identified Aer cx Nom (Unsp spec)Ordered By: Adama Olivier on 31-84-8726Ijbzrxk CultureAbCleveland Clinic South Pointe HospitalAerobic CultureAbCleveland Clinic South Pointe HospitalBasic Metabolic Panelon 30-43-5628Drgqe gap [Moles/Vol]13.8 mmol/LNormal6.0-15.0The [facility] Physician GroupComment on above:Performed By: #### BMP #### [place] [address] USACalcium [Mass/Vol]8.6 mg/dLNormal8.6-10.3The [facility] Physician GroupComment on above:Performed By: #### BMP #### [place] [id number] USAChloride [Moles/Vol]89 mmol/BSel47-431Wgv [facility] Physician GroupComment on above:Performed By: #### BMP #### [facility] [address] [place] [address] USACO2 [Moles/Vol]29.5 mmol/ATwzekn64.0-31.0The [facility] Physician GroupComment on above:Performed By: #### BMP #### [facility] [address] [place] [address] USACreatinine [Mass/Vol]1.35 mg/dLHigh0.70-1.30The [facility] Physician GroupComment on above:Performed By: #### BMP #### [facility] [address] [place] [address] USACreatinine Clr Calc Ifxxbrtq29.30NoLifeB[facility] Physician [facility] Health CentralComment on above:Result Comment: PERFORMED BY: [place] [id number] PATHOLOGIST LAST CHALKER ABIMAEL PEREIRA M.D.Performed By: #### BMP #### [place] [address] USAEstimated GFR58.995 mL/MinNoLifeBrite Community [facility] of [facility] Physician [facility] CentralComment on above:Performed By: #### BMP #### [place] [address] USAGlucose [Mass/Vol]190 mg/dTLtyz93-555Kaq [facility] Physician GroupComment on above:Result Comment: Random Glucose Reference Range is dependent on time and content of last meal. Glucose of more than 200 mg/dL in a nonstressed, ambulatory subject supports the diagnosis of Diabetes Mellitus. ADA recommended reference rangePerformed By: #### BMP #### [facility] [address] [place] [address] USAPotassium [Moles/Vol]3.3 mmol/LLow3.5-5.1The [facility] Physician GroupComment on above:Performed By: #### BMP #### [place] [address] USASodium [Moles/Vol]129 mmol/ZWrd731-328Lix [facility] Physician GroupComment on above:Performed By: #### BMP #### [facility] [address] [place] [address] USAUrea nitrogen [Mass/Vol]27 mg/dLHigh7-25The [facility] Physician GroupComment on above:Performed By: #### BMP #### [facility] [address] [place] [address] USABioFire Not Detectedon 29-42-5716JaxSmro Not DetectedNot detectedNormalNot DetecteThe [facility] Physician GroupComment on above:Result Comment: This is a duplicate RP2.1 COVID (PCR) result to be used for statistical tracking purpose only. PERFORMED BY: [place] [id number] PATHOLOGIST LA[employer] CHALKER ABIMAEL PEREIRA M.D.Performed By: #### GS, AERC #### [place] [address] USABlood estimated average glucose determination by estimation from glycated hemoglobinOrdered By: Adama Olivier on 11-24-2024 Average glucose Estimated from glycated hemoglobin (Bld) [Mass/Vol]Glucose mean value [Mass/volume] in Blood Estimated from glycated hemoglobinMemorial Health System Marietta Memorial HospitalCOVID-19 Detected/Not DetectedOrdered By: Adama Olivier on 19-38-0469RKYN-CoV-2 (COVID-19) RNA OCTAVIO+non-probe Ql (Nph)Not detectedNot DetecteFHocking Valley Community HospitalComment on above:This is a duplicate RP2.1 COVID (PCR) result to be used for statistical tracking purpose only. Cholesterol [Mass/volume] in Serum or PlasmaOrdered By: Adama Olivier on 70-58-4654Gwhxwzkagjs [Mass/Vol]Cholesterol [Mass/volume] in Serum or PlasmaHigh 140-200[facility] HospitalComment on above:Chol less than 200 mg/dl low riskChol 201-239 mg/dl borderline riskChol 240 mg/dl and greater high riskCholesterol in HDL [Mass/volume] in Serum or PlasmaOrdered By: Adama Olivier on 74-90-6635Qowaukjnugh in HDL [Mass/Vol]Serum or plasma high density lipoprotein (HDL) cholesterol illmdrtebnz53-70XqknmyrkkMemorial Health System [facility] Hospital Comment on above:HDL CHOL ATP-III CLASSIFICATION Cardiovascular RiskHDL > or equal to 60 mg/dL LOWHDL < 40 mg/dL HIGHCholesterol in LDL Calc [Mass/Vol] Ordered By: Adama Olivier on 79-24-5229Ddcjsfiwqrn in LDL [Mass/Vol]Cholesterol in LDL [Mass/volume] in Serum or Plasma by calculationHigh0-100[facility] HospitalComment on above:LDL ATP III CLASSIFICATIONLDL less than 100 mg/dL OptimalLDL 100-129 mg/dL Near or above epzrquxVGW038-075 mg/dL Borderline highLDL 160-189 mg/dL HighLDL greater than 189 mg/dL Very high Cholesterol in VLDL Calc [Mass/Vol]Ordered By: Adama Olivier on 11-24-2024 Cholesterol in VLDL [Mass/Vol]Cholesterol in VLDL [Mass/volume] in Serum or Plasma by calculationMemorial Health System Marietta Memorial HospitalComplete Blood Count Auto Diffon 16-51-6739Sdgpunwcs (Bld) [#/Vol]0.0 10*3/uLNormal0.0-0.2The [facility] Physician GroupComment on above:Result Comment: PERFORMED BY: [place] [id number] PATHOLOGIST LAST CHALKER ABIMAEL PEREIRA M.D.Performed By: #### CMP #### [facility] [address] [place] [address] USABasophils/100 WBC (Bld)0.3 %Normal.The [facility] Physician GroupComment on above:Performed By: #### CMP #### [facility] [address] [place] [address] USAEosinophils (Bld) [#/Vol]0.0 10*3/uLNormal0.0-0.45The [facility] Physician GroupComment on above:Performed By: #### CMP #### [facility] [address] [place] [address] USAEosinophils/100 WBC (Bld)0.0 %Normal.The [facility] Physician GroupComment on above:Performed By: #### CMP #### [facility] [address] [place] [address] USAErythrocyte distribution width (RBC) [Ratio]13.7 %Normal 12.0-14.8The [facility] Physician GroupComment on above:Performed By: #### CMP #### [place] [address] USAHematocrit (Bld) [Volume fraction]36.3 %Low38.8-50.0The [facility] Physician GroupComment on above:Performed By: #### CMP #### [place] [address] USAHemoglobin (Bld) [Mass/Vol]12.8 g/dLLow13.0-17.0The [facility] Physician GroupComment on above:Performed By: #### CMP #### [place] [address] USALymphocytes (Bld) [#/Vol]0.5 10*3/uLLow1.00-4.8The [facility] Physician GroupComment on above:Performed By: #### CMP #### [place] [address] USALymphocytes/100 WBC (Bld)4.6 %Normal.The [facility] Physician GroupComment on above:Performed By: #### CMP #### [place] [address] USAMCH (RBC) [Entitic mass]32.7 jyEcojtz11.5-35.2The [facility] Physician GroupComment on above:Performed By: #### CMP #### [place] [address] USAMCV (RBC) [Entitic vol]93.0 fMOtkzpb25.5-101The [facility] Physician GroupComment on above:Performed By: #### CMP #### [place] [address] USAMean Corpuscular HGB Conc35.1 g/mKRbuvkl99.5-35.6The [facility] Physician GroupComment on above:Performed By: #### CMP #### [facility] [address] [place] [address] USAMonocytes (Bld) [#/Vol]0.2 10*3/uLNormal0.0-0.8The [facility] Physician GroupComment on above:Performed By: #### CMP #### [facility] [address] [place] [address] USAMonocytes/100 WBC (Bld)1.8 %Normal.The [facility] Physician GroupComment on above:Performed By: #### CMP #### [facility] [address] [place] [address] USANeutrophils (Bld) [#/Vol]10.1 10*3/uLHigh1.8-7.7The [facility] Physician GroupComment on above:Performed By: #### CMP #### [facility] [address] [place] [address] USANeutrophils/100 WBC (Bld)93.3 %Normal.The [facility] Physician GroupComment on above:Performed By: #### CMP #### [facility] [address] [place] [address] USANRBC%0.0 /100{WBC}Normal0-0.5The [facility] Physician Group Comment on above:Performed By: #### CMP #### [facility] [address] [place] [address] USAPlatelet mean volume (Bld) [Entitic vol]6.9 fLNormal 6.6-10.1The [facility] Physician GroupComment on above:Performed By: #### CMP #### [facility] [address] [place] [address] USAPlatelets (Bld) [#/Vol]334 10*3/sWKenexo962-322Miy [facility] Physician GroupComment on above:Performed By: #### CMP #### [facility] [address] [place] [address] USARBC (Bld) [#/Vol]3.91 10*6/uLNormal3.90-5.60The [facility] Physician GroupComment on above:Performed By: #### CMP #### [facility] [address] [place] [address] USAWBC (Bld) [#/Vol]10.9 10*3/uLHigh4.1-10.5The [facility] Physician GroupComment on above:Performed By: #### CMP #### [facility] [address] [place] [address] USAComprehensive Metabolic Panelon 20-82-2041Htfdsrm [Mass/Vol]3.4 g/dLLow3.5-5.7The [facility] Physician GroupComment on above: Performed By: #### CMP #### [facility] [address] [place] [address] USAAlbumin/Globulin [Mass ratio]1.2 {ratio}NormalThe [facility] Physician GroupComment on above:Performed By: #### CMP #### [facility] [address] [place] [address] USAALP [Catalytic activity/Vol]106 U/SLmvg54-692Kte [facility] Physician GroupComment on above:Performed By: #### CMP #### [facility] [address] [place] [address] USAALT [Catalytic activity/Vol]35 U/LNormal7-52The [facility] Physician GroupComment on above:Performed By: #### CMP #### [facility] [address] [place] [address] USAAnion gap [Moles/Vol]12.0 mmol/LNormal6.0-15.0The [facility] Physician GroupComment on above:Performed By: #### CMP #### [facility] [address] [place] [address] USAAST [Catalytic activity/Vol]30 U/VDwoleg58-22Zzf [facility] Physician GroupComment on above:Performed By: #### CMP #### [facility] [address] [place] [address] USABilirubin [Mass/Vol]1.0 mg/dLNormal0.3-1.0The [facility] Physician GroupComment on above:Performed By: #### CMP #### [facility] [address] [place] [address] USACalcium [Mass/Vol]8.6 mg/dLNormal8.6-10.3The [facility] Physician GroupComment on above:Performed By: #### CMP #### [place] [address] USAChloride [Moles/Vol]85 mmol/JVri79-988Ong [facility] Physician GroupComment on above:Performed By: #### CMP #### [place] [address] USACO2 [Moles/Vol]32.3 mmol/LHigh21.0-31.0The [facility] Physician GroupComment on above:Performed By: #### CMP #### [place] [address] USACreatinine [Mass/Vol]0.91 mg/dLNormal0.70-1.30The [facility] Physician GroupComment on above:Performed By: #### CMP #### [place] [address] USACreatinine Clr Calc Rsakapwf83.63NormMayo Clinic Florida Physician GroupComment on above:Result Comment: PERFORMED BY: [place] [id number] PATHOLOGIST LAST CHALKER ABIMAEL PEREIRA M.D.Performed By: #### CMP #### [place] [address] USAGFR/1.73 sq M.predicted MDRD (S/P/Bld) [Vol rate/Area] mL/min/{1.73_m2}NormalThe [facility] Physician GroupComment on above:Performed By: #### CMP #### [place] [address] USAGlobulin (S) [Mass/Vol]2.9 g/dLHCA Florida Plantation Emergency Physician GroupComment on above:Performed By: #### CMP #### [place] [address] USAGlucose [Mass/Vol]136 mg/iZOgid47-789Nvi [facility] Physician GroupComment on above:Result Comment: Random Glucose Reference Range is dependent on time and content of last meal. Glucose of more than 200 mg/dL in a nonstressed, ambulatory subject supports the diagnosis of Diabetes Mellitus. ADA recommended reference rangePerformed By: #### CMP #### [place] [address] USAPotassium [Moles/Vol]2.3 mmol/LOff scale low3.5-5.1The [facility] Physician GroupComment on above:Result Comment: Critical Result Called to and read back by: ROCIO ZHENG at: 11/24/2024 06:24:17 by:VIRGILIOPerformed By: #### CMP #### [place] [address] USAProtein [Mass/Vol]6.3 g/dLLow6.4-8.9The [facility] Physician GroupComment on above:Performed By: #### CMP #### [place] [address] USASodium [Moles/Vol]127 mmol/IPaj549-334Iec [facility] Physician GroupComment on above:Performed By: #### CMP #### [place] [address] USAUrea nitrogen [Mass/Vol]19 mg/dLNormal7-25The [facility] Physician GroupComment on above:Performed By: #### CMP #### [place] [address] USACortisolon 86-06-9410Pvyjpaja91.0 ug/dLNoLifeBrite Community Hospital [facility] Stokes Physician GroupComment on above:Order Comment: FASTING YResult Comment: Reference range: AM 6 - 24 ug/dl PM <10 ug/dl [facility] Laboratory community living instructor and method: Medigus UNICEL DXI, POLYCLONAL ANTIBODY CORTISOL ASSAY. PERFORMED BY: [place] [id number] PATHOLOGIST LAST CHALKER ABIMAEL PEREIRA M.D.Performed By: #### CMP, CBC #### [place] [address] USACortisol [Mass/volume] in Serum or PlasmaOrdered By: Adama Olivier on 37-12-9602Ghhxphen [Mass/Vol]Random cortisol measurement [facility] HospitalComment on above:[facility] Laboratory community living instructor and method:Medigus UNICEL DXI, POLYCLONAL ANTIBODY CORTISOL ASSAY. Reference range: AM 6 - 24 ug/dl PM <10 ug/dlD-Dimer High Sensitivityon 53-66-0316V-Dimer High Dywzsuohxpb578 ng/mLHigh0-243The [facility] Physician GroupComment on above:Result Comment: The reference range for D-dimer is <243 ng/mL D-dimer units. D-dimer results must be used in conjunction with a clinical pretest probability (PTP) assessment model for deep vein thrombosis (DVT) and pulmonary embolism (PE). Results <230 ng/mL d-dimer units can be used as a negative predictor in patients with low or moderate probability for DVT/PE. Results above the exclusion threshold of 230 ng/ml D-dimer units for DVT/PE may indicate the need for further diagnostic testing. D-Dimer can be increased in hospitalized patients due to co-morbid conditions. A hematocrit value greater than 55% may lead to inaccurate results in coagulation testing. Patients having hematocrit values >55% require a special collection tube for coagulation studies. Please contact the laboratory at [phone] for redraw instructions. PERFORMED BY: [place] [id number] PATHOLOGIST LAST CHALKER ABIMAEL PEREIRA M.D.Performed By: #### DDIMER #### [place] [id number] USAECG 12 lead ECGon 14-95-6261RPK 12 lead ECGST[facility] Main [address] [address] Electrocardiograph Report Signed Patient: Hardeep Traore MR#: [id number] : 1960 Acct:[id number] Age/Sex: 64 / M ADM Date: 11/24/24 Loc: Room: [address] [place] [address] Type: ADM IN Attending Dr: Edmundo Hernandes MD Ordering Provider: Adama Olivier MD Date of Service: 11/24/24 ECG/ECG 12 lead ECG: NSTEMI Copies to: Test Reason : Blood Pressure : */* mmHG Vent. Rate : 71 BPM Atrial Rate : 71 BPM P-R Int : 184 ms QRS Dur : 96 ms QT Int : 478 ms P-R-T Axes : 3 75 132 degrees QTcB Int : 519 ms Normal sinus rhythm T wave abnormality, consider anterolateral ischemia Abnormal ECG No previous ECGs available Confirmed by STEPHANIE OLIVAREZ [facility] ([id number]) on 11/24/2024 11:23:57 AM Referred By: Electronically Signed By: JOE AMARO MD [facility] Transcribed By: MUS Signed By Joe Amaro MD, [facility] 11/24/[address] [place] [address] Physician [facility] echo transthoracicon 84-57-7395LHG echo transthoracicST. [facility] OF [facility] Main [place] [address] [place] [address] Echocardiogram Signed Patient: Hardeep Traore MR#: [id number] : 1960 Acct:[id number] Age/Sex: 64 / M ADM Date: 11/24/24 Loc: Room: [address] [place] [address] Type: ADM IN Attending Dr: Edmundo Hernandes MD Ordering Provider: Adama Olivier MD Date of Service: 11/24/24 ECH/ECH echo transthoracic: decr LVEF on POCUS Copies to: MD Joe Freed MD, [facility] BSA: 1.7 m2 BP: 177/86 mmHg HR: 73 Reason For Study: decr LVEF on POCUS History: Smoker Interpretation Summary Moderate concentric left ventricular hypertrophy. There are regional wall motion abnormalities as specified. Moderate inferolateral wall hypokinesis The LV ejection fraction is 45 %. A variety of Doppler measurements indicate pseudonormalized left ventricular relaxation, which is associated with grade II/IV or mild to moderate diastolic dysfunction. Mitral valve annulus tissue Doppler imaging is consistent with elevated left atrial pressure. The left atrium appears mildly dilated. There is no prior echocardiogram noted for this patient. Procedure/Quality: A two-dimensional transthoracic echocardiogram with color flow and Doppler was performed. The study was technically good in quality. There is no prior echocardiogram noted for this patient. Left Ventricle: Moderate concentric left ventricular hypertrophy. The LV ejection fraction is 45 %. A variety of Doppler measurements indicate pseudonormalized left ventricular relaxation, which is associated with grade II/IV or mild to moderate diastolic dysfunction. Mitral valve annulus tissue Doppler imaging is consistent with elevated left atrial pressure. There are regional wall motion abnormalities as specified. Moderate inferolateral wall hypokinesis. Left Atrium: The left atrium appears mildly dilated. The atrial septum appears normal. Right Atrium: The right atrium appears normal in size. Right Ventricle: The right ventricular size, thickness and function are normal. Aortic Valve: The aortic valve is mildly sclerotic. Mitral Valve: The mitral valve is mildly sclerotic. There is trace mitral regurgitation. Tricuspid Valve: The tricuspid valve is normal in structure. Pulmonic Valve: The pulmonic valve is not well seen, but is grossly normal. Arteries: The aortic root is normal size. Pericardium/Pleura: No pericardial effusion seen. There is no pleural effusion. IVC/Hepatic Veins: The inferior vena cava is normal in size, with a normal collapsibility index. Miscellaneous: No thrombus, vegetation or mass is seen. Measurements with Normals IVSd: 1.9 cm (0.7-1.1 cm)LVIDd: 4.9 cm (3.7-5.4 cm) LVPWd: 1.5 cm (0.7-1.1 cm)LVIDs: 4.0 cm (2.3-3.6 cm) LA dimension: 4.4 cm (2.3-4.0 cm)Ao root diam: 3.3 cm(2.0-3.6 cm) asc Aorta Diam: 3.5 cm(2.1-3.4cm) Doppler with Normals RVSP(TR): 14.3 mmHg (18-35mmHg) LV V1 max: 113.4 cm/sec (0.7-1.7m/s)MV E max lily: 121.0 cm/sec(0.8-1.3m/s) MV A max lily: 27.3 cm/sec(0.0-0.0m/s) MV E/A: 4.4 (<1.5) MMode/2D Measurements Calculations TAPSE: 2.4 cm FS: 18.3 % Ao root area: LVOT diam: 2.0 cm RV S Lily: EDV(Teich): 8.8 cm2 LVOT area: 3.2 cm2 14.5 cm/sec 114.4 ml ESV(Teich): 71.1 ml EF(Teich): 37.9 % __ LVLd ap4: 7.7 cm SV(MOD-sp4): LAV(MOD-sp4): LA A2 area: 30.2 cm2 EDV(MOD-sp4): 74.4 ml 75.3 ml 131.0 ml LAV(MOD-sp2): LA A4 area: 22.5 cm2 LVLs ap4: 6.5 cm 125.0 ml LA length (vol): ESV(MOD-sp4): 5.4 cm 56.6 ml LA vol: 107.2 ml EF(MOD-sp4): 56.8 % LA vol index: 61.7 ml/m2 Doppler Measurements Calculations MV dec time: MV max PG: E/E' med: 25.0 MV dec slope: 0.15 sec 37.0 mmHg 816.6 cm/sec2 __ Ao V2 max: LV V1 max PG: MR max lily: TV max P.0 mmHg 156.1 cm/sec 5.1 mmHg 303.6 cm/sec Ao max P.7 mmHgLV V1 mean PG: MR max PG: Ao mean P.5 mmHg 38.8 mmHg 5.9 mmHg LV V1 mean: Ao V2 mean: 75.7 cm/sec 116.0 cm/sec LV V1 VTI: 22.4 cm Ao V2 VTI: 33.4 cm CARMELLA(I,D): 2.2 cm2 CARMELLA(V,D): 2.3 cm2 __ TR max lily: 168.3 cm/sec TR max P.3 mmHg RAP systole: 3.0 mmHg Transcribed By: ELEUTERIO Performed At: 11/24/24 1105 Signed By: Joe Amaro MD, [facility] 11/24/24 1616NormSt. Francis HospitalFibrin D-dimer [Presence] in Platelet poor plasma by Latex agglutination Ordered By: Adama Olivier on 77-76-4227Suasuy D-dimer LA Ql (PPP)Fibrin D-dimer [Presence] in Platelet poor plasma by Latex agglutinationHigh0-243[facility] HospitalComment on above:The reference range for D-dimer is <243 ng/mL D-dimer units.D-dimer results must be used in conjunction with a clinicalpretest probability (PTP) assessment model for deep veinthrombosis (DVT) and pulmonary embolism (PE). Results <230ng/mL d-dimer units can be used as a negative predictor inpatients with low or moderate probability for DVT/PE.Results above the exclusion threshold of 230 ng/ml D-dimerunits for DVT/PE may indicate the need for furtherdiagnostic testing.D-Dimer can be increased in hospitalized patients due toco-morbid conditions.A hematocrit value greater than 55% may lead to inaccurate results in coagulation testing. Patients having hematocrit values >55% require a special collection tube for coagulation studies. Please contact the laboratory at [phone] for redraw instructions.Free T4 (Free Thyroxine)on 25-96-2825Njyz T4 [Mass/Vol]1.02 ng/dL Normal0.61-1.12The [facility] Physician [facility] CentralComment on above:Performed By: #### BMP #### [facility] [address] [place] [address] USAGram Stainon 15-85-4671Hcuqmnzegot observation Gram stain Nom (Unsp spec)Gram Stain Result 4+ Gram Positive Cocci 2+ Gram Positive Bacilli Rare White Blood Cells Rare Yeast Like Elements 2+ Epithelial Cells PERFORMED BY: [facility] [address] [facility] [place] [address] PATHOLOGIST LAST CHALKER ABIMAEL PEREIRA M.D.NormalThe [facility] Hospital - HazeltonComment on above: Performed By: #### GS, AERC #### [facility] [address] [place] [address] USAGram stain microscopyOrdered By: Adama Soy on 21-55-3671Littavhnonc observation Gram stain Nom (Unsp spec)Gram stain microscopyMemorial Health System Marietta Memorial HospitalMicroscopic observation Gram stain Nom (Unsp spec)Gram stain microscopyMemorial Health System Marietta Memorial HospitalHemoglobin A1c/Hemoglobin.total in BloodOrdered By: Adama Soy on 83-46-6528JlO4r (Bld) [Mass fraction]Hemoglobin A1c percentageHigh4.3-5.6FHocking Valley Community HospitalComment on above:Increased risk for diabetes: 5.7 - 6.4diabetes: >6.4glycemic control for adults with diabetes: <7.0Lipid Panelon 11-24-2024 Cholesterol [Mass/Vol]220 mg/tDZmhb023-024Apk [facility] Physician GroupComment on above:Order Comment: FASTING YResult Comment: Chol less than 200 mg/dl low risk Chol 201-239 mg/dl borderline risk Chol 240 mg/dl and greater high riskPerformed By: #### CMP, CBC #### [facility] [address] [place] [address] USACholesterol in HDL [Mass/Vol]63 mg/xDOpoqsw81-77Vkr [facility] Physician GroupComment on above:Order Comment: FASTING YResult Comment: HDL CHOL ATP-III CLASSIFICATION Cardiovascular Risk HDL > or equal to 60 mg/dL LOW HDL < 40 mg/dL HIGHPerformed By: #### CMP, CBC #### [facility] [address] [place] [address] USACholesterol.total/Cholesterol in HDL [Mass ratio]3.5 {ratio}Normal<5.0The [facility] Physician GroupComment on above:Order Comment: FASTING YPerformed By: #### CMP, CBC #### [facility] [address] [place] [address] USALDL Cholesterol,Aqxlakirrp104 mg/dLHigh0-100The [facility] Physician GroupComment on above:Order Comment: FASTING YResult Comment: LDL ATP III CLASSIFICATION LDL less than 100 mg/dL Optimal LDL 100-129 mg/dL Near or above optimal LDL 130-159 mg/dL Borderline high LDL 160-189 mg/dL High LDL greater than 189 mg/dL Very highPerformed By: #### CMP, CBC #### [facility] [address] [place] [address] USATriglyceride w/Vnjahv58 mg/dLNormal0-149The [facility] Physician GroupComment on above:Order Comment: FASTING YResult Comment: TRIG ATP III CLASSIFICATION TRIG less than 150 mg/dL Normal TRIG 150-199 mg/dL Borderline high TRIG 200-500 mg/dL High TRIG greater than 500 mg/dL Very high Standard traceable to the Center for Disease Conrtrol and Prevention (CDC) test method.Performed By: #### CMP, CBC #### [facility] [address] [place] [address] USAVLDL WXUTZMDDTDM24 mg/dLNormalThe [facility] Physician GroupComment on above:Order Comment: FASTING YPerformed By: #### CMP, CBC #### [facility] [address] [place] [address] USAMagnesiumon 71-75-7715Ccjcgjrnl [Mass/Vol]1.9 mg/dLNormal 1.9-2.7The [facility] Physician GroupComment on above:Order Comment: FASTING Y Performed By: #### CMP, CBC #### [facility] [address] [place] [address] USAMagnesium [Mass/volume] in Serum or PlasmaOrdered By: Adama Olivier on 11-64-2571Kphitroul [Mass/Vol]Magnesium [Mass/volume] in Serum or Plasma1.9-2.7FHocking Valley Community HospitalNatriuretic peptide B [Mass/Vol]Ordered By: Adama Olivier on 60-81-0395Zdbixzclmwp peptide B (Bld) [Mass/Vol]BNP ser/plasHigh5-100[facility] HospitalRenin Activityon 06-30-2461Weobe Pckwswub37.452Lvcq6.167-5.380The [facility] Physician Group Comment on above:Result Comment: This test was developed and its performance characteristics determined by [facility]. It has not been cleared or approved by the Food and Drug Administration. Performed at: [address] [id number] [employer] Machine Tender Helper: Jenn Brandt MD, Phone: [phone] PERFORMED BY: [facility] [address] [facility] [place] [address] PATHOLOGIST LAST CHALKER ABIMAEL PEREIRA M.D.Performed By: #### GS, AERC #### [facility] [address] [place] [address] USARenin activityOrdered By: Adama Olivier on 11-24-2024 Renin (P) [Catalytic activity/Vol]Renin activityHigh0.167-5.380[facility] HospitalComment on above:This test was developed and its performance characteristicsdetermined by [employer]. It has not been cleared orapproved by the Food and Drug Administration.Performed at: [address] [id number] Director: Jenn Brandt MD, Phone: [phone] (Upper) Panel, PCRon 77-67-2792Pfiziienxmj (Upper) Panel, PCRAdenovirus Not detected Bordetella parapertussis Not detected Chlamydia pneumoniae Not detected Coronavirus 229E Not detected Coronavirus HKU1 Not detected Coronavirus NL63 Not detected Coronavirus OC43 Not detected Influenza A Not detected Influenza B Not detected Human Metapneumovirus Not detected Mycoplasma pneumoniae Not detected Parainfluenza Virus 1 Not detected Parainfluenza Virus 2 Not detected Parainfluenza Virus 3 Not detected Parainfluenza Virus 4 Not detected Bordetella pertussis-ptxP Not detected Human Rhino/Enterovirus Not detected Resp. Syncytial Virus Not detected COVID-19 Detected/Not Detected Not detected Blank Space FLUA TEST INCLUDES Influenza A tests for the following clinically FLUA TEST INCLUDES significant subtypes: FLUA TEST INCLUDES - Influenza A FLUA TEST INCLUDES - Influenza A H1 FLUA TEST INCLUDES - Influenza A H1 2009 FLUA TEST INCLUDES - Influenza A H3 Blank Space PERFORMED BY: [address] [address] PATHOLOGIST LAST CHALKER ABIMAEL PEREIRA M.D.NormalThe [facility] Physician GroupComment on above: Performed By: #### BMP #### [address] [address] USARespiratory pathogens DNA and RNA panel - Nasopharynx by OCTAVIO with non-probe detectionOrdered By: Adama Olivier on 38-85-3948Kakjqaozzqi pathogens DNA and RNA panel OCTAVIO+non-probe (Nph)Respiratory pathogens DNA and RNA panel - Nasopharynx by OCTAVIO with non-probe detectionMemorial Health System Marietta Memorial HospitalRespiratory pathogens DNA and RNA panel OCTAVIO+non-probe (Nph)Respiratory pathogens DNA and RNA panel - Nasopharynx by OCTAVIO with non-probe detection Pomerene Hospitalerum or plasma aldosterone measurement (mass/volume)Ordered By: Adama Olivier on 27-32-3905Kkzexfudhfs [Mass/Vol]Serum or plasma aldosterone measurement (mass/volume)0.0-30.0[facility] HospitalComment on above:This test was developed and its performance characteristicsdetermined by [employer]. It has not been cleared orapproved by the Food and Drug Administration.Performed at: [facility] Lab[address] [id number] Director: Jenn Brandt MD, Phone: [phone] or plasma total cholesterol/high density lipoprotein (HDL) cholesterol mass ratOrdered By: Adama Olivier on 11-24-2024 Cholesterol.total/Cholesterol in HDL [Mass ratio]Serum or plasma total cholesterol/high density lipoprotein (HDL) cholesterol mass rat<5.0[facility] HospitalThyroid Stimulating Hormoneon 40-94-8463UHN Qn0.35 m[IU]/LLow0.45-5.33The [facility] Physician GroupComment on above:Result Comment: PERFORMED BY: [facility] [address] [place] [address] PATHOLOGIST LAST CHALKER ABIMAEL PEREIRA M.D.Performed By: #### BMP #### [facility] [address] [place] [address] USATSH Qn0.57 m[IU]/LNormal0.45-5.33The [facility] Physician GroupComment on above:Order Comment: FASTING YPerformed By: #### CMP, CBC #### [place] [address] USAThyrotropin [Units/volume] in Serum or PlasmaOrdered By: Edmundo Hernandes on 95-86-9328JZI QnThyrotropin [Units/volume] in Serum or PlasmaLow 0.45-5.33[facility] HospitalThyroxine (T4) free [Mass/volume] in Serum or PlasmaOrdered By: Edmundo Hernandes on 47-53-3090Sqkt T4 [Mass/Vol]Thyroxine (T4) free [Mass/volume] in Serum or Plasma0.61-1.12[facility] HospitalTriglyceride [Mass/volume] in Serum or PlasmaOrdered By: Adama Olivier on 10-67-2074Bvtvbdizutyf [Mass/Vol]Triglyceride [Mass/volume] in Serum or Plasma 0-149[facility] HospitalComment on above:TRIG ATP III CLASSIFICATIONTRIG less than 150 mg/dL NormalTRIG 150-199 mg/dL Borderline highTRIG 200-500 mg/dL High TRIG greater than 500 mg/dL Very highStandard traceable to the Center for Disease Conrtrol and Prevention (CDC) test method. Troponin I High Sensitivityon 37-21-5443Slmykrgz I High Rrqkyhrxyjo50.7 pg/mLOff scale high0.0-20.0The [facility] Physician GroupComment on above:Result Comment: Critical Result : Called to and read back by: RAJ BECKHAM at: 11/24/2024 13:58:08 by:MLG PERFORMED BY: [place] [id number] PATHOLOGIST LAST CHALKER ABIMAEL PEREIRA M.D.Performed By: #### HS TROP #### [place] [address] USATroponin I High Shvcfoejllh13.2 pg/mLOff scale high 0.0-20.0The [facility] Physician GroupComment on above:Result Comment: Critical Result : Called to and read back by: RAJ JULIEN at: 11/24/2024 11:54:05 by:[id number] PERFORMED BY: [place] [id number] PATHOLOGIST LAST CHALKER ABIMAEL PEREIRA M.D.Performed By: #### HS TROP #### [facility] [address] [place] [address] USATroponin I High Glcodqklarh59.8 pg/mLOff scale high 0.0-20.0The [facility] Physician GroupComment on above:Result Comment: Critical Result : Called to and read back by: ROCIO ZHENG at: 11/24/2024 07:05:04 by:VIRGILIO PERFORMED BY: [place] [id number] PATHOLOGIST LAST CHALKER ABIMAEL PEREIRA M.D.Performed By: #### CMP #### [place] [address] USAUS aortaon 04-02-2034TS aortaST. [facility] [place] [address] [place] [address] Ultrasound Report Signed Patient: Hardeep Traore MR#: [id number] : 1960 Acct:[id number] Age/Sex: 64 / M ADM Date: 11/24/24 Loc: Room: [address] [place] [address] Type: ADM IN Attending Dr: Edmundo Hernandes MD Ordering Provider: Adama Olivier MD Date of Service: 11/24/24 US/US aorta: smoker, some dilatation on abd aorta seen Copies to: MD Edmundo Freed MD ULTRASOUND OF THE ABDOMINAL AORTA HISTORY: Abdominal aortic dilatation, smoking history COMPARISON: None Real-time ultrasound evaluation of the abdominal aorta was performed. The proximal AP diameter is 3.74 cm and the width is 4.35 cm. Through the midsegment, the aorta measure 2.8 cm and the width is 3.67 cm. Distally, the diameter measures 3.07 cm and the width measures 3.43 cm. There is calcified plaque with mural wall thrombus noted distally. The bifurcation is visualized and the iliac arteries are normal caliber. There is no periaortic fluid. US/US aorta IMPRESSION: There is aneurysmal dilatation of the abdominal aorta measuring up to 4.4 cm in greatest transverse dimension proximally. There is calcified plaque with mural wall thrombus noted distally. Impression dictated by: Francisco Shafer M.D.11/24/2024 8:56 AM Dictation Location: [place] [address] Tech: Joya Pate Transcribed By: RANJEET 11/24/24 0856 Dictated By: Francisco Shafer II, MD 11/24/24 0854 Signed By: 11/24/24 0856[facility] Physician GroupXR chest 2V*on 70-70-7537DI chest 2V*[facility] [place] [address] [place] [address] XRay Report Signed Patient: Hardeep Traore MR#: [id number] : 1960 Acct:[id number] Age/Sex: 64 / M ADM Date: 11/24/24 Loc: Room: [address] [place] [address] Type: ADM IN Attending Dr: Edmundo Hernandes MD Copies to: MD Edmundo Freed MD Ordering Provider: Adama Olivier MD Date of Service: 11/24/24 XR/XR chest 2V*: f/u pulmonary infiltrates Plain film chest 2 view HISTORY: Follow-up pulmonary infiltrates COMPARISON: 11/24/2024 at 0114 hours FINDINGS: SUPPORT DEVICES: None POSTSURGICAL CHANGES: None HEART: Within normal limits PULMONARY ELI: Within normal limits MEDIASTINUM: Unremarkable LUNGS AND PLEURA: Marked resolution of perihilar groundglass parenchymal densities. Likely representing improvement of failure. Residual right parahilar groundglass parenchymal density. Residual atypical pulmonary edema versus infiltrate. Minimal pleural effusions with blunting of costophrenic angles. No pneumothorax. BONY STRUCTURES: Intact ADDITIONAL FINDINGS None XR/XR chest 2V* IMPRESSION: Marked near complete resolution of diffuse groundglass parenchymal densities. Consider Improvement of failure. Residual ground glass parenchymal densities right perihilar region. Consider residual asymmetrical pulmonary edema versus pneumonitis. Impression dictated by: Deandre Aponte M.D.11/24/2024 9:37 PM Dictation Location: [place] [address] Transcribed By: [facility] 11/24/242136 Dictated By: Deandre Aponte DO 11/24/242133 Signed By: 11/24/242136[facility] Physician GroupBNPon [id number] peptide B (Bld) [Mass/Vol]222.0 pg/mLNormal<=900.0The [facility] HospitalComment on above:Performed By: #### BNP, CMP, HSTROPN #### [facility] [address] [place] [address] Laurel KarenCBC AUTO DIFFon [id number] (Bld) [#/Vol]0.1 103/ulNormal 0.0-0.1The [facility] HospitalComment on above:Performed By: #### CBC #### [facility] [address] [address] Laurel KarenBasophils/100 WBC (Bld)0.5 %Normal0.2-2.0The [facility] Comment on above:Performed By: #### CBC #### [facility] [address] [place] [address] Laurel KarenEosinophils (Bld) [#/Vol]0.1 103/ulNormal0.0-0.7The [facility] HospitalComment on above:Performed By: #### CBC #### [facility] [address] [place], [place] [id number] Laurel KarenEosinophils/100 WBC (Bld)1.1 %Normal0.9-7.0The [facility] Comment on above:Performed By: #### CBC #### [facility] [address] [place] [address] Laurel KarenErythrocyte distribution width (RBC) [Ratio]13.3 %Ytgfwg66.0-15.0The [facility] HospitalComment on above:Performed By: #### CBC #### [facility] [address] [address] Laurel KarenHematocrit (Bld) [Volume fraction]40.4 %Critically low42.0-54.0The [facility] HospitalComment on above:Performed By: #### CBC #### [facility] [address] [place] [address] Laurel KarenHemoglobin (Bld) [Mass/Vol]13.2 g/dLCritically low14.0-18.0The [facility] HospitalComment on above:Performed By: #### CBC #### [facility] [address] [place] [address] Laurel KarenIG #0.11 10e3/ulCritically high0.00-0.03The [facility] HospitalComment on above:Performed By: #### CBC #### [facility] [address] [place] [address] Laurel KarenIG %1.0 %Critically high0.0-0.5The [facility] HospitalComment on above:Performed By: #### CBC #### [facility] [address] [place] [address] Laurel KarenLymphocytes (Bld) [#/Vol]3.1 103/ulNormal1.2-3.8The [facility] HospitalComment on above:Performed By: #### CBC #### [facility] [address] [place] [address] Laurel KarenLymphocytes/100 WBC (Bld)27.5 %Wvynep72.5-60.0The [facility] Comment on above:Performed By: #### CBC #### [facility] [address] [place] [address] Laurel KarenMANUAL DIFF REQNONormalThe [facility] HospitalComment on above: Performed By: #### CBC #### [facility] [address] [place] [address] Laurel KarenMCH (RBC) [Entitic mass]32.0 jzWslbqo81.9-34.0The [facility] Comment on above:Performed By: #### CBC #### [facility] [address] [place] [address] Laurel KarenMCHC (RBC) [Mass/Vol]32.7 g/wSFysszr72.9-35.2[facility] Comment on above:Performed By: #### CBC #### [facility] [address] [place] [address] Laurel KarenMCV (RBC) [Entitic vol]97.8 fLCritically high80.0-94.0The [facility] HospitalComment on above:Performed By: #### CBC #### [facility] [address] [place] [address] Laurel KarenMonocytes (Bld) [#/Vol]0.7 103/ulNormal0.3-0.8The [facility] Comment on above:Performed By: #### CBC #### [facility] [address] [place] [address] Laurel KarenMonocytes/100 WBC (Bld)6.5 %Normal1.7-12.0[facility] Comment on above:Performed By: #### CBC #### [facility] [address] [place] [address] Laurel KarenNeutrophils (Bld) [#/Vol]7.1 103/ulCritically high1.4-6.5The [facility] HospitalComment on above:Performed By: #### CBC #### [facility] [address] [place] [address] Laurel KarenNeutrophils/100 WBC (Bld)63.4 %Umcfkh93.0-75.0[facility] Comment on above:Performed By: #### CBC #### [facility] [address] [place] [address] Laurel KarenPlatelet mean volume (Bld) [Entitic vol]8.9 fLCritically low9.5-13.5 The [facility] HospitalComment on above:Performed By: #### CBC #### [facility] [address] [place] [address] Laurel KarenPlatelets (Bld) [#/Vol]712 103/ulCritically pzdm059-904Cvg [facility] HospitalComment on above:Performed By: #### CBC #### [facility] [address] [place] [address] Laurel RubioenRBC (Bld) [#/Vol]4.13 106/ulCritically low4.70-6.10The [facility] HospitalComment on above:Performed By: #### CBC #### [facility] [address] [place] [address] Laurel SantosWBC (Bld) [#/Vol]11.1 103/ulCritically high4.0-11.0The [facility] HospitalComment on above:Performed By: #### CBC #### [facility] [address] [place] [address] Laurel KarenCTA CHEST WO W CONon [id number] CHEST WO W CONEXAMINATION: CTA CHEST WO W CON HISTORY: SHORTNESS OF BREATH , cough COMPARISON: Chest x-ray the same day TECHNIQUE: Axial, Coronal, and Sagittal images were created without and with IV contrast. Dose reduction techniques were achieved by using automated exposure control and/or adjustment of mA and/or kV according to patient size and/or use of iterative reconstruction technique. 100 mL Omnipaque 300 FINDINGS: LUNGS: Moderate groundglass and solid infiltrates throughout the left lower lobe with volume loss and peribronchial thickening. Mild dependent atelectasis superior segment right upper lobe. Moderate centrilobular emphysema with a right apical predominance. PLEURA: No mass, effusion, or pneumothorax. VASCULATURE: No abnormality. ELI: Normal sized bilateral lymph nodes. Calcified left hilar lymph nodes MEDIASTINUM: Increased number of normal size AP window pretracheal and subcarinal lymph nodes CARDIAC: No enlargement or pericardial effusion. Coronary atherosclerosis AORTA: Aneurysm of the distal thoracic aorta measuring up to 3.7 cm in diameter CHEST WALL: No mass or axillary adenopathy. BONES: No bone lesion or fracture. LIMITED ABDOMEN: No suspicious findings. Limited images of the upper abdomen. OTHER: Negative. IMPRESSION: No central pulmonary embolus Left lower lobe pneumonia Moderate centrilobular emphysema Descending thoracic aortic aneurysm measuring up to 3.7 cm in diameter Electronically authenticated by: DELPHINE ZAPATA Date: 2020-12-02 14:18[facility] GeneralCovid-19 PCR (CVDTB)on [id number]-19 PCRNOT DETECTED NormalNOT DETECTEDThe [facility] on above:Result Comment: This test is not yet approved or cleared by the [place] FDA. When there are no FDA-approved or cleared tests available, and other criteria are met, FDA can make tests available under an emergency access mechanism called an Emergency Use Authorization (EUA). The EUA for this test is supported by the Fan Mail Editor of Health and Human Service's (HHS's) declaration that circumstances exist to justify the emergency use of in vitro diagnostics for the detection and/or diagnosis of the virus that causes COVID-19. This EUA will remain in effect (meaning this test can be used) for the duration of the COVID-19 declaration justifying emergency of IVDs, unless it is terminated or revoked by FDA (after which the test may no longer be used).Performed By: #### CVDTBH #### [facility] [address] [place] [address] Laurel BecerraCleveland Clinic [facility] on above: Result Comment: This test is not yet approved or cleared by the [place] FDA. When there are no FDA-approved or cleared tests available, and other criteria are met, FDA can make tests available under an emergency access mechanism called an Emergency Use Authorization (EUA). The EUA for this test is supported by the Fan Mail Editor of Health and Human Service?s (HHS?s) declaration that circumstances exist to justify the emergency use of in vitro diagnostics for the detection and/or diagnosis of the virus that causes COVID-19. This EUA will remain in effect (meaning this test can be used) for the duration of the COVID-19 declaration justifying emergency of IVDs, unless it is terminated or revoked by FDA (after which the test may no longer be used). When diagnostic testing is negative, the possibility of a false negative should be considered in the context of a patients recent exposures andthe presence of clinical signs and symptoms consistent with SARS-CoV-2.Performed By: #### CVDTBH #### [facility] [address] [place] [address] Laurel KarenD-DIMERon [id number]-DIMER COMMENTSSEE BELOWNormLouis Stokes Cleveland VA Medical CenterComment on above:Result Comment: Increases in D-Dimer concentration observed with thromboembolic events can be variable due to localization, size, and age of the thrombus. Therefore, a thromboembolic event cannot be diagnosed with certainty on the basis of the reference range. D-Dimers may also be elevated for a variety of disorders including: advanced age, , coronary disease, cancer, liver disease, infection, inflammation, hematoma, DIC, trauma, post-surgery, diabetes, thrombolytic or anticoagulant therapy, stress, and generalized hospitalization. TEST REPEATED CRITICAL VALUE VERIFIEDPerformed By: #### PTT, DDIM, PT #### [facility] [address] [place] [address] Laurel KarenFibrin D-dimer FEU IA (Bld) [Mass/Vol]1.18 mg/L FEUCritically high 0.19-0.50The [facility] HospitalComment on above:Performed By: #### PTT, DDIM, PT #### [facility] [address] [place] [address] Laurel KarenPROF 14(COMP METB)on [id number] [Mass/Vol]2.8 g/dLCritically low3.5-5.0The [facility] HospitalComment on above:Performed By: #### BNP, CMP, HSTROPN #### [facility] [address] [place] [address] Laurel KarenAlbumin/Globulin [Mass ratio]0.6 {ratio}NormalSt. [facility] Comment on above:Performed By: #### BNP, CMP, HSTROPN #### [facility] [address] [place] [address] Laurel KarenALP [Catalytic activity/Vol]122 U/KSvtlkh71-372Vqv [facility] Comment on above:Performed By: #### BNP, CMP, HSTROPN #### [facility] [address] [place] [address] Laurel KarenALT [Catalytic activity/Vol]92 U/LCritically mmto77-41Bzl Nidia HospitalComment on above:Performed By: #### BNP, CMP, HSTROPN #### [facility] [address] [address] Laurel KarenAnion gap [Moles/Vol]14.0 mmol/LNormalThe [facility] HospitalComment on above:Performed By: #### BNP, CMP, HSTROPN #### [facility] [address] [address] Laurel KarenAST [Catalytic activity/Vol]36 U/TOtjzoz90-15TogSt. [facility] Comment on above:Performed By: #### BNP, CMP, HSTROPN #### [facility] [address] [address] Laurel KarenBilirubin Ql (U)0.6 mg/dLNormal0.2-1.3TTrumbull Memorial HospitalComment on above:Performed By: #### BNP, CMP, HSTROPN #### [facility] [address] [address] Laurel KarenCalcium [Mass/Vol]8.9 mg/dLNormal8.4-10.2[facility] Comment on above:Performed By: #### BNP, CMP, HSTROPN #### [facility] [address] [place] [address] Laurel KarenChloride [Moles/Vol]101 mmol/LMrloua11-568UhtSt. [facility] Comment on above:Performed By: #### BNP, CMP, HSTROPN #### [facility] [address] [address] Laurel KarenCO2 [Moles/Vol]25.9 mmol/DRwkvww57.0-30.0[facility] Comment on above:Performed By: #### BNP, CMP, HSTROPN #### [facility] [address] [place] [address] Laurel KarenCreatinine [Mass/Vol]1.03 mg/dLNormal0.66-1.25The [facility] Comment on above:Performed By: #### BNP, CMP, HSTROPN #### [facility] [address] [address] Laurel KarenEGFR-AF HONG KONGER>60Normal>=60The [facility] HospitalComment on above: Performed By: #### BNP, CMP, HSTROPN #### [facility] [address] [address] Laurel KarenEGFR-NON AF HONG KONGER>60Normal>=60The [facility] HospitalComment on above:Performed By: #### BNP, CMP, HSTROPN #### [facility] [address] [address] Laurel KarenGlobulin (S) [Mass/Vol]4.8 g/dLNormalThe [facility] HospitalComment on above:Performed By: #### BNP, CMP, HSTROPN #### [facility] [address] [place] [address] Laurel KarenGlucose [Mass/Vol]119 mg/dLCritically gezx94-761Ggz [facility] HospitalComment on above:Performed By: #### BNP, CMP, HSTROPN #### [facility] [address] [place] [address] Laurel KarenPotassium [Moles/Vol]3.9 mmol/LNormal3.4-5.0The [facility] Comment on above:Performed By: #### BNP, CMP, HSTROPN #### [facility] [address] [place] [address] Laurel KarenProtein [Mass/Vol]7.6 g/dLNormal6.1-8.2The [facility] HospitalComment on above:Performed By: #### BNP, CMP, HSTROPN #### [facility] [address] [place] [address] Laurel KarenSodium [Moles/Vol]137 mmol/XZrsqve755-184Cwu [facility] Comment on above:Performed By: #### BNP, CMP, HSTROPN #### [facility] [address] [place] [address] Laurel KarenUrea nitrogen [Mass/Vol]16.0 mg/dLNormal9.0-20.0[facility] on above:Performed By: #### BNP, CMP, HSTROPN #### [facility] [address] [place] [address] Laurel KarenUrea nitrogen/Creatinine [Mass ratio]15.5 mg/mgNoChildren's Hospital for Rehabilitationment on above:Performed By: #### BNP, CMP, HSTROPN #### [facility] [address] [place] [address] Laurel KarenPROTIMEon [id number] Coag (PPP) [Relative time]0.96 {INR}Normal [facility] on above:Performed By: #### PTT, DDIM, PT #### [facility] [address] [place] [address] Laurel KarenPT Coag (PPP) [Time]SEE BELOWNoMercy Health [facility] on above:Result Comment: DESIRED INR: 2.0 - 3.0 CONDITIONS NOT LISTED BELOW 2.5 - 3.5 FOR PROSTHETIC HEART VALVE REPLACEMENT 2.5 - 3.5 RECURRENT THROMBOSIS Performed By: #### PTT, DDIM, PT #### [facility] [address] [place] [address] Laurel KarenPT Coag (PPP) [Time]10.5 sNormal9.0-11.6[facility] on above:Performed By: #### PTT, DDIM, PT #### [facility] [address] [place] [address] Laurel KarenPTTon [id number] Coag (Bld) [Time]27.3 vGipwjo86.3-36.2[facility] on above:Performed By: #### PTT, DDIM, PT #### [facility] [address] [place] [address] Laurel KarenTROPONIN, HIGH SENSITIVITYon [id number] pg/mLNormal4.0-42.2 [facility] on above:Result Comment: CUT-OFF POINTS HAVE BEEN ESTABLISHED BASED ON THE FOURTH UNIVERSAL DEFINITIONS OF MYOCARDIAL INFARCTION. THE UPPER REFERENCE LIMIT (URL) OF TROPONIN, DEFINED THE 99TH PERCENTILE OF cTnI DISTRIBUTION IN A REFERENCE POPULATION, HAS BEEN CONFIRMED THE DECISION THRESHOLD FOR [place] DIAGNOSIS.Performed By: #### BNP, CMP, HSTROPN #### [facility] [address] [place], [place] [address] Laurel KarenXR CHEST 2 Von 37-71-1053PJ CHEST 2 VCHEST X-RAY, TWO VIEWS HISTORY: Shortness of breath and cough. COMPARISON: No. FINDINGS: The heart, eli, and mediastinum are unremarkable. There is left lower lobe airspace disease. There are no pleural effusions. There is no pneumothorax. IMPRESSION: Left lower lobe pneumonia. Follow-up to resolution. Electronically authenticated by: DANIA ALFRED Date: 2020-12-02 13:35[facility] Vital Signs Date TimeVital SignValuePerforming LxzfvyapuUqaykihk16-87-6622 08:59-0400Body dysfvk644.18 cmGuillelisseth Alfaro APRN Work Phone: [phone]08-11-2025 08:59-0400 Body mass index (BMI) [Ratio]20.3 kg/b5IcrgcphkNgozi Alfaro APRN Work Phone: [phone]08-11-2025 08:59-0400 Body wwvbfgblyds45 [degF]Ngozi Alfaro APRN Work Phone: [phone] [place], [place] [address]8-11-2025 08:59-0400 Body anveiv98.96 kgGuillelisseth Alfaro APRN Work Phone: [phone]08-11-2025 08:59-0400 Diastolic blood gxindkzi41 mm[Hg]Ngozi Alfaro APRN Work Phone: [phone]08-11-2025 08:59-0400 Heart rate66 /minNgozi Alfaro APRN Work Phone: [phone]08-11-2025 08:59-0400 SaO2% (BldA) [Mass fraction]98 %Ngozi Angelina IMPLEMENTATION PROJECT COORDINATOR Work Phone: [phone] [place], [place] [address]08-11-2025 08:59-0400 Systolic blood jpqvypsb865 mm[Hg]Ngozi Campbellr IMPLEMENTATION PROJECT COORDINATOR Work Phone: [phone]05-06-2025 10:04-0400 Body uitjrh212.18 cmNgozi Koromaacher IMPLEMENTATION PROJECT COORDINATOR Work Phone: [phone] [place], [place] 491[address]05-06-2025 10:04-0400 Body mass index (BMI) [Ratio]22.1 kg/a0FvguhupzNgozi Mastersrbacher IMPLEMENTATION PROJECT COORDINATOR Work Phone: [phone] [place], [place] 491[address]05-06-2025 10:04-0400 Body ytpuak77.95 kgNgozi Koromaacher IMPLEMENTATION PROJECT COORDINATOR Work Phone: [phone] [place], [place] 491[address]05-06-2025 10:04-0400 Diastolic blood mm[Hg]Ngozi Angelina IMPLEMENTATION PROJECT COORDINATOR Work Phone: [phone] [place], [place] 491[address]05-06-2025 10:04-0400 Heart rate58 /Cheri Mastersrbacher IMPLEMENTATION PROJECT COORDINATOR Work Phone: [phone] [place], [place] 491[address]05-06-2025 10:04-0400 Respiratory rate18 /Cheri Koromaacher IMPLEMENTATION PROJECT COORDINATOR Work Phone: [phone] [place], [place] 491[address]05-06-2025 10:04-0400 SaO2% (BldA) [Mass fraction]98 %Ngozi Angelina IMPLEMENTATION PROJECT COORDINATOR Work Phone: [phone] [place], [place] 491[address]05-06-2025 10:04-0400 Systolic blood rhxuzrsr080 mm[Hg]Ngozi Campbellr IMPLEMENTATION PROJECT COORDINATOR Work Phone: [phone])[address] [place], [place] 491[address]04-07-2025 10:27-0400 Body kyqden744.18 cmNgozi Mastersshakiraacher IMPLEMENTATION PROJECT COORDINATOR Work Phone: [phone] [place], [place] 491[address]04-07-2025 10:27-0400 Body mass index (BMI) [Ratio]21.1 kg/e1SwkfmcdcNgozi Hightowerr IMPLEMENTATION PROJECT COORDINATOR Work Phone: [phone] [place], [place] 491[address]04-07-2025 10:27040 Body iepdngomyai90.2 [degF]Ngozi Mastersevertonr IMPLEMENTATION PROJECT COORDINATOR Work Phone: [phone] [place], [place] 491[address]04-07-2025 10:27040 Body skhzuw90.23 kgNgozi Mastersshakiraacher IMPLEMENTATION PROJECT COORDINATOR Work Phone: [phone] [place], [place] 491[address]04-07-2025 10:27-0400 Diastolic blood wlditpug00 mm[Hg]Ngozi Angelina IMPLEMENTATION PROJECT COORDINATOR Work Phone: [phone] [place], [place] 491[address]04-07-2025 10:27-0400 Heart rate63 /minNgozi Mastersrbacher IMPLEMENTATION PROJECT COORDINATOR Work Phone: [phone] [place], [place] 491[address]04-07-2025 10:27-0400 Respiratory rate16 /Cheri Koromaacher IMPLEMENTATION PROJECT COORDINATOR Work Phone: [phone] [place], [place] [address]04-07-2025 10:27-0400 SaO2% (BldA) [Mass fraction]98 %Ngozi Mastersdaily IMPLEMENTATION PROJECT COORDINATOR Work Phone: [phone] [place], [place] 491[address]04-07-2025 10:27-0400 Systolic blood plsizpzz113 mm[Hg]Ngozi Mastersdaily IMPLEMENTATION PROJECT COORDINATOR Work Phone: [phone] [place], [place] 491[address]03-21-2025 09:22-0400 Body tzjxor209.18 cmNgozi Hightowerr IMPLEMENTATION PROJECT COORDINATOR Work Phone: [phone] [place], [place] 491[address]03-21-2025 09:22-0400 Body mvlfnivcdyp74.5 [degF]Ngozi Mastersdaily IMPLEMENTATION PROJECT COORDINATOR Work Phone: [phone] [place], [place] 491[address]03-21-2025 09:22-0400 Body buchxj62 kgNgozi Hightowerr IMPLEMENTATION PROJECT COORDINATOR Work Phone: [phone] [place], [place] 491[address]03-21-2025 09:22-0400 Diastolic blood irtaahff48 mm[Hg]Ngozi Angelina IMPLEMENTATION PROJECT COORDINATOR Work Phone: [facility]03-21-2025 09:22-0400 Heart rate61 /Cheri Mastersdaily IMPLEMENTATION PROJECT COORDINATOR Work Phone: [facility]03-21-2025 09:22-0400 Respiratory rate20 /Ninidedrick Alfaro IMPLEMENTATION PROJECT COORDINATOR Work Phone: [facility]03-21-2025 09:22-0400 SaO2% (BldA) [Mass fraction]100 %Ngozi Mastersdaily IMPLEMENTATION PROJECT COORDINATOR Work Phone: [facility]03-21-2025 09:22-0400 Systolic blood vjijgqyz913 mm[Hg]Ngozi Angelina VYAS Work Phone: [facility]03-18-2025 08:55-0400 Body pwujjn497.18 cmAndsaad Olivier MD Work Phone: [facility]03-18-2025 08:55-0400 Body mass index (BMI) [Ratio]21.1 kg/t9SbnoyqAdama Olivier MD Work Phone: [facility]03-18-2025 08:55-0400 Body osnsxdqsply82.6 [degF]Adama Olivier MD Work Phone: [facility]03-18-2025 08:55-0400 Body ntpeky14.23 kgAndsaad Olivier MD Work Phone: [facility]03-18-2025 08:55-0400 Diastolic blood iqfpsprz91 mm[Hg]Adama Olivier MD Work Phone: [facility]03-18-2025 08:55-0400 Heart rate69 /Viky Olivier MD Work Phone: [facility]03-18-2025 08:55-0400 SaO2% (BldA) [Mass fraction]97 %Adama Olivier MD Work Phone: [phone] [place], [place] [address]203-18-2025 08:55-0400 Systolic blood mm[Hg]Adama Olivier MD Work Phone: [phone] [place], [place] 3378602-25-2025 10:36-0500 Body vgxnet536.18 cmAndsaad Olivier MD Work Phone: [phone] [place], [place] 3378602-25-2025 10:36-0500 Body mass index (BMI) [Ratio]21.1 kg/t6FupyysAdama Olivier MD Work Phone: [phone] [place], [place] 3378602-25-2025 10:36-0500 Body njwsoblbfzi50.2 [degF]Adama Olivier MD Work Phone: [phone] [place], [place] 3378602-25-2025 10:36-0500 Body lklixp77.23 kgAndsaad Olivier MD Work Phone: [phone] [place], [place] 3378602-25-2025 10:36-0500 Diastolic blood qumgnjtk52 mm[Hg]Adama Olivier MD Work Phone: [phone] [place], [place] 3378602-25-2025 10:36-0500 Heart rate72 /minAdama Olivier MD Work Phone: [phone] [place], [place] [address]202-25-2025 10:36-0500 Respiratory rate16 /minAdama Olivier MD Work Phone: [phone] [place], [place] [address]202-25-2025 10:36-0500 SaO2% (BldA) [Mass fraction]98 %Adama Olivier MD Work Phone: [phone])[address]02-25-2025 10:36-0500 Systolic blood bouubopf357 mm[Hg]Adama Olivier MD Work Phone: [phone]02-18-2025 17:03-0500 Diastolic blood ldrukdjp68 mm[Hg]Adama Olivier MD Work Phone: [facility]02-18-2025 17:03-0500 Heart rate61 /minAdama Olivier MD Work Phone: [address] [place], [place] 2710302-18-2025 17:03-0500 Respiratory rate20 /minAdama Olivier MD Work Phone: [address] [place], [place] 2710302-18-2025 17:03-0500 SaO2% (BldA) [Mass fraction]99 %Adama Olivier MD Work Phone: [address] [place], [place] 2710302-18-2025 17:03-0500 Systolic blood vxeavzlp427 mm[Hg]Adama Olivier MD Work Phone: 1(206)[address]97 [address]02-18-2025 13:29-0500 Body neogzl506.18 cmAndsaad Olivier MD Work Phone: 1(032)861-[address] [place], [place] 0743202-18-2025 13:29-0500 Body fqbfimueetd13.5 [degF]Adama Olivier MD Work Phone: 1(153)019-[address] [place], [place] 0743202-18-2025 13:29-0500 Body watsfv68.7 kgAdama Olivier MD Work Phone: [address] [place], [place] 2710301-21-2025 10:23-0500 Diastolic blood ribllswv84 mm[Hg]Adama Olivier MD Work Phone: [address] [place], [place] 2710301-21-2025 10:23-0500 Heart rate74 /minAdama Olivier MD Work Phone: [address] [place], [place] 2710301-21-2025 10:23-0500 SaO2% (BldA) [Mass fraction]100 %Adama Olivier MD Work Phone: [address] [place], [place] 2710301-21-2025 10:23-0500 Systolic blood azvyisxr249 mm[Hg]Adama Olivier MD Work Phone: [address] [place], [place] 2710301-21-2025 09:51-0500 Body .18 Joshua Olivier MD Work Phone: [address] [place], [place] 2710301-21-2025 09:51-0500 Body mass index (BMI) [Ratio]21.6 kg/h7Fxnxmvsaad Olivier MD Work Phone: 1(044)246-[address] [place], [place] 0743201-21-2025 09:51-0500 Body pzdfdpewrcv33.3 [degF]Adama Olivier MD Work Phone: 1(212)63297 [address]01-21-2025 09:51-0500 Body .65 kgAndsaad Olivier MD Work Phone: 1(122)[address] [place], [place] 3378601-14-2025 10:14-0500 Body gkjgqe506.18 Joshua Olivier MD Work Phone: 1(032)97397 [address]01-14-2025 10:14-0500 Body mass index (BMI) [Ratio]21.2 kg/t4HrrjrrAdama Olivier MD Work Phone: 1(702)34597 [address]01-14-2025 10:14-0500 Body oplfvo53.68 kgAdama Olivier MD Work Phone: 1(599)[address] [place], [place] 3378601-14-2025 10:14-0500 Diastolic blood nfrvpenw46 mm[Hg]Adama Olivier MD Work Phone: 1(958)[address] [place], [place] [address]743201-14-2025 10:14-0500 Heart rate75 /minAdama Olivier MD Work Phone: 1(605)509-[address] [place], [place] 0743201-14-2025 10:14-0500 Respiratory rate16 /minAdama Olivier MD Work Phone: 1(401)162-[address] [place], [place] 0743201-14-2025 10:14-0500 SaO2% (BldA) [Mass fraction]98 %Adama Olivier MD Work Phone: [facility]01-14-2025 10:14-0500 Systolic blood mshwebvp052 mm[Hg]Adama Olivier MD Work Phone: [address] [place], [place] 2710312-29-2024 08:00-0500 Body hxvojamubce86.8 [degF]Adama Olivier MD Work Phone: 1(815)445-[address] [place], [place] 0743212-29-2024 08:00-0500 Diastolic blood mm[Hg]Adama Olivier MD Work Phone: 1(671)678-[address] [place], [place] 0743212-29-2024 08:00-0500 Heart rate72 /minAndsaad Olivier MD Work Phone: 1(661)172-[address] [place], [place] 0743212-29-2024 08:00-0500 Respiratory rate18 /minAdama Olivier MD Work Phone: 1(674)721-[address] [place], [place] 0743212-29-2024 08:00-0500 SaO2% (BldA) [Mass fraction]98 %Adama Olivier MD Work Phone: [address] [place], [place] 2710312-29-2024 08:00-0500 Systolic blood mm[Hg]Adama Olivier MD Work Phone: 1(861)051-[address] [place], [place] 0743212-29-2024 06:00-0500 Body rsjgdu56.4 kgAndsaad Olivier MD Work Phone: [address] [place], [place] 2710312-28-2024 04:00-0500 Inhaled oxygen rhdfktmkcavmv46 %Adama Olivier MD Work Phone: [facility]12-26-2024 14:56-0500 Body hiamxl904.18 cmAndsaad Olivier MD Work Phone: 5(225)976-[address] [place] [address] Encounters Encounter DateEncounter TypeCare ProviderFacilityStart: 07-10-2025 End: 42-85-6202iphayjyaalTscblcmu Rohrbacher APRN Work Phone: [facility] Work Phone: Start: 07-10-2025 End: 74-99-3506Wkxptzl encounter procedureDeandre Rolle MD-[facility] Work Phone: Start: 04-04-2025 End: 86-07-6177mlckgtpnspPmmnxzfh Rohrbacher IMPLEMENTATION PROJECT COORDINATOR Work Phone: [facility] Work Phone: Start: 04-04-2025 End: 44-36-6889Qlaaxho encounter procedureJelisseth Mastersrbacher IMPLEMENTATION PROJECT COORDINATOR Work Phone: [facility] Work Phone: Start: 03-06-2025 End: 33-08-5304qmsulitygzRhssvunv Rohrbacher IMPLEMENTATION PROJECT COORDINATOR Work Phone: [facility] Work Phone: Start: 03-06-2025 End: 09-34-1038Eaiffoi encounter procedureJennifer Guerrerorbacher IMPLEMENTATION PROJECT COORDINATOR Work Phone: [facility] Work Phone: Start: 03-01-2025 End: 03-98-1169aivbnpqfawSjmvvfil Rohrbacher IMPLEMENTATION PROJECT COORDINATOR Work Phone: [facility] Work Phone: Start: 03-01-2025 End: 86-78-4047Ecachubs ReferredJennifer Guerrerorbacher IMPLEMENTATION PROJECT COORDINATOR Work Phone: [facility] 02-17-2025 End: 17-83-8883Qtxpfec encounter procedureAdama Olivier MD Work Phone: [facility] Vdp-Gyk-Yoddvmbj Testing Work Phone: Start: 02-17-2025 End: 82-49-0883xfodfomubuFgifue Popescu MD Work Phone: [facility] Work Phone: Start: 74-13-4868Ychzxdezr for preprocedural laboratory examinationDeandre German [facility] Phys[facility] GroupStart: 02-14-2025 End: 50-66-0521befepqlhczOafezv Popescu MD Work Phone: [facility] Work Phone: Start: 02-14-2025 End: 35-32-4055Gpnnewo encounter procedureAndsaad Olivier MD Work Phone: [facility] Physician [facility] Work Phone: Start: 02-06-2025 End: 34-18-8672Kpqmrpc encounter procedureAndsaad Olivier MD Work Phone: [facility]-CT Scan [place] Work Phone: Start: 02-06-2025 End: 89-98-0373btquswxaidTxibbu Popescu MD Work Phone: [facility] Work Phone: Start: 01-24-2025 End: 47-57-0220mrlznwyilfRqkoou Popescu MD Work Phone: [facility] Work Phone: Start: 01-24-2025 End: 47-26-1639Gewlfec encounter procedureAndsaad Olivier MD Work Phone: [facility] Phys[facility] Work Phone: Start: 01-17-2025 End: 05-26-4505Olgfgrvrt department patient visitAndsaad Olivier MD Work Phone: [facility]-Emergency Room Work Phone: Start: 01-09-2025 End: 37-05-0911Yobwlec encounter procedureAdama Olivier MD Work Phone: [facility]-Ultrasound [place] Work Phone: Start: 01-09-2025 End: 95-97-4830hwgabitrghCyltux Popescu MD Work Phone: [facility] Work Phone: Start: 01-02-2025 End: 48-60-8126Vzhmtb flowsheetNicole Angely DO Work Phone: ana NORWALKStart: 01-02-2025 End: 63-43-5737Vvdtgt flowsheetNicole Angely DO Work Phone: ana NORWALKStart: 01-02-2025 End: 97-00-7513Beicjco encounter procedureNicole Angely DO Work Phone: ana AGUSTOKComment on above:Numbness and tingling (Primary Dx)Start: 01-02-2025 End: 73-74-2419yerrvpabhzGXWTNK DANNERNot AvailableStart: 12-20-2024 End: 37-25-7430uomvhkuovhZibliv Popescu MD Work Phone: [facility] Work Phone: Start: 12-20-2024 End: 31-47-3762Yqpgmyp encounter procedureAdama Olivier MD Work Phone: [facility] Work Phone: Start: 12-13-2024 End: 38-40-6807duahzpbtzqAulnts Popescu MD Work Phone: [facility] Work Phone: Start: 12-13-2024 End: 74-00-7679Varzkdm encounter procedureAdama Olivier MD Work Phone: [facility] Phys[facility] Work Phone: Start: 63-89-9160Hzf-patient / Non-visitAdama Olivier MD Work Phone: [facility] Work Phone: Start: 52-84-8293Xty-patient / Non-visitAdama Olivier MD Work Phone: [facility] [place] [facility] Work Phone: Start: 16-19-4298Els-patient / Non-visitAndsaad Olivier MD Work Phone: [facility] Work Phone: Start: 11-24-2024 End: 19-54-1981Ayyuzwgyzn and management of inpatientAndsaad Olivier MD Work Phone: [facility] [place] [facility] Work Phone: Start: 12-02-2020 End: 47-78-9629Gkqfotm encounter procedureDOCTOR MISCFacility:H1 Procedures DateProcedureProcedure DetailPerforming ClinicianStart: 14-82-4739QZ of abdominal aorta with contrastAdama Olivier MD Work Phone: Start: 83-14-1853Mdlijc scan veins of upper limbAndsaad Olivier MD Work Phone: Start: 65-82-8014Suwvo chest X-rayAndsaad Olivier MD Work Phone: Start: 88-02-1757Ubqoj volume recorder pneumoplethysmographyAdama Olivier MD Work Phone: Start: 01-02-2025 End: 26-14-4612Uptxad emg ea extremty w/paraspinl area completeNicole Angely DO Work Phone: Start: 64-02-3984Npkoy chest X-rayAndsaad Olivier MD Work Phone: Start: 98-32-8563Tstuvgv microbial cultureAdama Olivier MD Work Phone: Start: 56-54-2971Sxcs stain microscopyAdama Olivier MD Work Phone: Start: 00-19-4419Bswtbmosveh Panel (PCR)Adama Olivier MD Work Phone: Start: 19-07-2480MN scan of aortaAdama Olivier MD Work Phone: History of placement of stent for coronary artery diseaseS/P coronary artery stent placementAdama Olivier MD Work Phone: Plan of Treatment DateCare ActivityDetailAuthorStart: 50-64-2944Ymorj limb angiographyIR Angiogram Left Leg (Bilateral)[facility]: 87-07-9233Wbyqhu scan veins of upper limbUS venous duplex UE [facility] Start: 18-20-0807KJ Upper extremity vein - [facility] Start: 01-02-2025 End: 83-46-2039Cqcqimw encounter hqmeqxyes62/03/2025 8:30 AM EST Procedure Visit [facility] [place] [address] [place] [address] Justine Arzate DO [address] [place] [address] Elpidio BOWDENomment on above:ArrivedStart: 91-48-3232Nkxameu referral [facility] Work Phone: Start: 39-68-2289Lzebwmk referralSelect [facility] Work Phone: Start: 81-75-6542ZmhhtbtajMem[facility] Start: 02-80-8751Okkynqui of Coronary Artery, Two Arteries with Four or More Drug-eluting Intraluminal Devices, Percutaneous ApproachDilation of Coronary Artery, Two Arteries with Four or More Drug-eluting Intraluminal Devices, Percu taneous ApproachPomerene Hospitaltart: 98-89-6778Aixjdbgyitx of Left Heart using Low Osmolar ContrastFluoroscopy of Left Heart using Low Osmolar ContrastPomerene Hospitaltart: 82-04-6137Dvqyyacuqgl of Multiple Coronary Arteries using Low Osmolar ContrastFluoroscopy of Multiple Coronary Arteries using Low Osmolar ContrastMemorial Health System [facility] Start: 94-45-3786Gpcnieenzzz of Arterial Pressure, Coronary, Percutaneous ApproachMeasurement of Arterial Pressure, Coronary, Percutaneous Approach [facility]: 85-32-5152Ruxnslpqnzu of Cardiac Sampling and Pressure, Left Heart, Percutaneous ApproachMeasurement of Cardiac Sampling and Pressure, Left Heart, Percutaneous ApproachPomerene Hospitaltart: 85-68-1524Hsagiouzzfbfrnp of Multiple Coronary Arteries, IntravascularUltrasonography of Multiple Coronary Arteries, Intravascular [facility]: 63-93-3952Acpytars admissionPomerene Hospitaltart: 88-91-3268Fksfs disorder assessmentPomerene Hospitaltart: 39-72-6226Tyczrppet vaccinationInfluenza Vaccine (#1)[facility] HospitalStart: 52-95-9889Olwnswdwk for malignant neoplasm of colon [facility] HealthcarePatient EducationSelect [facility]ty [facility] Work Phone: Patient referralSelect [facility] Work Phone: [facility] Payers DatePayer CategoryPayerPolicy [id number] Health [id number] [id number]-[id number] 2..840.1.844838.3.57[id number] 2..840.1.769355.3.57[id number] 2.16.840.1.9[id number] 2.16.840.1.303706.3.579.2.531 [id number] 2.16.840.1.9[id number] 2.16.840.1.1[id number] 2.16.840.1.053843.3.579.2.531 [id number] 2.16.840.1.698068.3.579.2.531UnknownHCAP/HFA/FAP Active eo769g61-318w-2r5y-a5p6-9656cfx3496s Social History DateTypeDetailFacilityStart: 12-13-2024 End: 03-24-2776Udwafmv smoking status NHISSmoker (finding)[facility]: 12-13-2024 End: 86-50-8704BzuDlgv (finding)[facility]: 56-83-0828Wsx Assigned At BirthC[facility] Clinic [facility] HospitalTobacc smoking status NHISTobacco smoking consumption unknownNOTN HealthcareStart: 13-54-5003Ocb assigned at birthNot on fileMOUNTAIN POINT MEDICAL [facility]ENTER HealthcareGender identityNot on fileMOUNTAIN POINT MEDICAL [facility] HealthcareStart: 95-74-7757Cmtiyow smoking status NHISSmokes tobacco daily (finding)[facility] Medical Equipment Procedure CodeEquipment CodeEquipment Original TextEquipment IdentifierDatesCL STENT KENNEDI FRONTIER 2.5 X 18FDAStart: 84-69-2344ZK STENT KENNEDI FRONTIER 3.5 X 38 FDAStart: 71-78-0908ZN STENT KENNEDI FRONTIER 4.0 X 08FDAStart: 88-83-3207XG STENT KENNEDI FRONTIER 4.0 X 18FDAStart: 75-70-8781EA STENT KENNEDI FRONTIER 2.5 X 18FDA Start: 80-98-1236NO STENT KENNEDI FRONTIER 3.5 X 38FDAStart: 78-40-5412AT STENT KENNEDI FRONTIER 4.0 X 08FDAStart: 75-78-3293HP STENT KENNEDI FRONTIER 4.0 X 18FDA Start: 84-88-5219GF STENT KENNEDI FRONTIER 2.5 X 18FDAStart: 34-28-0217WV STENT KENNEDI FRONTIER 3.5 X 38FDAStart: 98-82-1588DZ STENT KENNEDI FRONTIER 4.0 X 08FDA Start: 65-23-0430SI STENT KENNEDI FRONTIER 4.0 X 18FDAStart: 19-07-2879OS STENT KENNEDI FRONTIER 2.5 X 18FDAStart: 74-24-3612GM STENT KENNEDI FRONTIER 3.5 X 38FDA Start: 13-82-6545QN STENT KENNEDI FRONTIER 4.0 X 08FDAStart: 06-65-2535AE STENT KENNEDI FRONTIER 4.0 X 18FDAStart: 18-89-8398WG STENT KENNEDI FRONTIER 2.5 X 18FDA Start: 57-67-1314VL STENT KENNEDI FRONTIER 3.5 X 38FDAStart: 44-31-0287TD STENT KENNEDI FRONTIER 4.0 X 08FDAStart: 55-16-8404OQ STENT KENNEDI FRONTIER 4.0 X 18FDA Start: 26-85-8248ZH STENT KENNEDI FRONTIER 2.5 X 18FDAStart: 86-66-7807FP STENT KENNEDI FRONTIER 3.5 X 38FDAStart: 52-73-7583BI STENT KENNEDI FRONTIER 4.0 X 08FDA Start: 68-41-7721DU STENT KENNEDI FRONTIER 4.0 X 18FDAStart: 92-90-0487HD STENT KENNEDI FRONTIER 2.5 X 18FDAStart: 76-97-4426FX STENT KENNEDI FRONTIER 3.5 X 38FDA Start: 26-77-2921QA STENT KENNEDI FRONTIER 4.0 X 08FDAStart: 36-55-4739BS STENT KENNEDI FRONTIER 4.0 X 18FDAStart: 12-66-6438TC STENT KENNEDI FRONTIER 2.5 X 18FDA Start: 39-03-9904ZK STENT KENNEDI FRONTIER 3.5 X 38FDAStart: 59-55-2359DR STENT KENNEDI FRONTIER 4.0 X 08FDAStart: 96-61-5021UU STENT KENNEDI FRONTIER 4.0 X 18FDA Start: 46-59-8620AD STENT KENNEDI FRONTIER 2.5 X 18FDAStart: 35-90-2052EU STENT KENNEDI FRONTIER 3.5 X 38FDAStart: 01-89-0574ZQ STENT KENNEDI FRONTIER 4.0 X 08FDA Start: 99-93-8270MB STENT KENNEDI FRONTIER 4.0 X 18FDAStart: 34-59-8319VH STENT KENNEDI FRONTIER 2.5 X 18FDAStart: 49-84-1477JX STENT KENNEDI FRONTIER 3.5 X 38FDA Start: 03-52-7146HW STENT KENNEDI FRONTIER 4.0 X 08FDAStart: 58-46-9108AL STENT KENNEDI FRONTIER 4.0 X 18FDAStart: 59-60-7884ST STENT KENNEDI FRONTIER 2.5 X 18FDA Start: 84-53-0695DK STENT KENNEDI FRONTIER 3.5 X 38FDAStart: 01-65-6509RS STENT KENNEDI FRONTIER 4.0 X 08FDAStart: 35-70-2436KA STENT KENNEDI FRONTIER 4.0 X 18FDA Start: 06-87-3239XG STENT KENNEDI FRONTIER 2.5 X 18FDAStart: 38-25-3904ZA STENT KENNEDI FRONTIER 3.5 X 38FDAStart: 73-48-8604PQ STENT KENNEDI FRONTIER 4.0 X 08FDA Start: 25-73-5236GU STENT KENNEDI FRONTIER 4.0 X 18FDAStart: 11-25-2024 Goals DatePatient GoalDesired Activity/State Functional Status PdvaZxxjzbcnurQdbkggVzicflsz03-80-9290Fhisxjjxyn statusPatient at Baseline [facility] Work Phone: 1(958) 918-97751863550-09-2216Njwsuvkdld statusPatient at Baseline [facility] Work Phone: Mental Status WuiiLdxelbblebTderovZkkyjraj42-62-7692Dmemxlalj functionCognitive Status Patient at [facility] Work Phone: 1(348) [phone]Vazrqdhqx functionCognitive Status Patient at [facility] Work Phone: Clinical Notes 11-24-2024 to 02-14-2025 Note Date & ZhreQmtfSqcbqonk24-14-1275 Evaluation note* Diagnosis Onset Date Resolution Status Admit Date Abdominal aortic aneurysm (AAA) 3.0 cm t o 5.5 cm in diameter in male acuteMarch 2024 8:48amPAD (peripheral artery disease)acuteMarch 2024 8:48amPAD (peripheral artery disease)acuteApril 2024 10:01amCoronary artery disease involving [place]-apache coronary artery of [place]-apache heart wiacuteMay 2024 9:54amEssential (primary) hypertensionacuteMay 2024 9: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)acuteMay 2024 9:54am Mixed hyperlipidemiaacuteMay 2024 9:54amS/P coronary artery stent placement acuteMay 2024 9:54amTobacco use disorder, continuousacuteMay 2024 9:54am [facility] Work Phone: 1(876) 403-901903-10-2025 Radiology Diagnostic study [facility] [place] [address] CT Scan Report Signed Patient: Hardeep Traore MR#: [id number] : 1960 Acct:[id number] Age/Sex: 64 / M ADM Date: 5 Loc: CT Room: Type: [facility] Attending Dr: Philomena Montes RN PROCEDURE-C Copies to: Philomena Montes APRN~ Ordering Provider: Philomena Montes APRN Date of Service: 02/06/25 CT/CT angio abd aorta runoff: I70.213 - Atherosclerosis of [place]ap[place]-apache arteries of extremiti... CTA abdomen, pelvis, and bilateral lower extremities . CLINICAL DATA: Atherosclerosis of both lower extremities.. TECHNIQUE: Intravenous contrast-enhanced CT angiography of the abdomen, pelvis, and bilateral lowerextremities was performed. Axial, sagittal, coronal, and 3D- dimensional reconstructions were created and reviewed. This CT exam was performed using one or more of the following dose reduction techniques: Automated exposure control, adjustment of the mA and/or kV according to patient size, or use ofiterative reconstruction technique. COMPARISON: Aortic ultrasound 11/24/2024. FINDINGS: Lung Bases: No acute process. Organs:Gallbladder has been removed. Liver pancreas spleen and adrenal glands appear unremarkable. Right kidney appears unremarkable. There is decreased attenuation of the left kidney when compared to the right which appears to relate to an occlusion involving the left renal artery. Punctate stonesare seen involving the left kidney. Abdominal aorta demonstrates fusiform type infrarenal abdominalaortic aneurysm measuring 3.5 cm with associated thrombus and narrowing of the lumen. There appearsbe occlusion involving the right common iliac artery and severe narrowing of the right external iliac artery. This appears to be associated contrast opacification of the right internal iliacartery likely related to collateral flow. There appears be contrast opacification at the region of the right common femoral artery which appears to be supplied by a prominent right epigastric artery. Soft plaquing involving theorigins of the SMA and celiac arteries without cortical stenosis or occlusion. Mild calcification involving the proximal right renal vein without critical stenosis or occlusion. ROSY is not clearly seen. Moderate calcification and soft plaquing involving the left common and externaliliac artery with what appears to be severe stenosis involving the distal left common iliac artery. 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 GI: Stomach is grossly unremarkable. Small bowel appears nondilated. No acute colonic abnormality.[ Pelvis:[Prostatomegaly. Urinary bladder is grossly unremarkable.] Peritoneum/Retroperitoneum:No free air or free fluid or lymphadenopathy.[ Abd wall/Bones:No acute findings. Osseous structures demonstrate degenerative change.[ Lower extremities: Left: Mild calcification involving the left common femoral artery without critical stenosis or occlusion. Slitter Scorer branches appear patent. Mild calcification involving the left SFA without criticalstenosis or occlusion. There is severe narrowing by soft plaquing involving the distal aspect of the popliteal artery. There appears to be low trifurcation involving the anterior tibial, posterior tibial and peroneal arteries arteries. The anterior and posterior tibial arteries appear patent to thelevel of the ankle. Dorsalis pedis artery appears patent. The distal aspect of the peroneal artery is not clearly seen. No focal soft tissue abnormality is noted. No significant soft tissue swelling. No fluid collectionis seen. Musculature demonstrate no focal abnormality. Osseous structures demonstrate degenerative change. Right: Right common femoral artery appears patent due to collateral flow from the right epigastric artery. There is mild calcification is soft plaquing without critical stenosis or occlusion. Slitter Scorer branches appear patent. Calcification and soft plaquing is seen involving the right SFA without critical stenosis or occlusion. Popliteal artery demonstrates mild calcification and soft plaquing without critical stenosis or occlusion. Tibioperoneal trunk appears patent. Anterior tibial artery demonstrates mild calcification but appears patent throughout its course. Dorsalis pedis artery appears patent. Posterior tibial artery appears patent. Peroneal artery appears patent. No focal soft tissue abnormality is noted. No significant soft tissue swelling. No fluid collectionis seen. Musculature demonstrate no focal abnormality. Osseous structures demonstrate degenerative change. CT/CT angio abd aorta runoff IMPRESSION: 1. 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 2. Calcification significant soft plaquing involving the abdominal aorta with a 3.5 cm infrarenal fusiform type aneurysm present. 3. Occlusion of the right common iliac artery as well as severe narrowing involving t (more contentnot included)...[facility] 01-24-2025 Evaluation note* Diagnosis Onset Date Resolution Status Admit Date Abdominal aortic aneurysm (AAA) 3.0 cm t o 5.5 cm in diameter in male acuteFebruary 2024 10:30amCurrent every day smokeracuteFebruary 2024 10:30amNicotine dependenceacuteFebruary 2024 10:30amPAD (peripheral artery disease)acuteFebruary 2024 10:30amAbdominal aortic aneurysm (AAA) 3.0 cm to 5.5 cm in diameter in maleacuteMarch 2024 8:48amPAD (peripheral artery disease)acuteMarch 2024 8:48amPAD (peripheral artery disease)acute March 06, 2025 10:01amCoronary artery disease involving [place]apache coronary artery of [place]-apache heart wiacuteMay 2024 9:54amEssential (primary) hypertensionacute April 04, 2025 9: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 Main [place] [address] [place] [address] Ultrasound Report Signed Patient: Hardeep Traore MR#: [id number] : 1960 Acct:[id number] Age/Sex: 64 / M ADM Date: 5 Loc: Room: Type: [facility] Attending Dr: Tyson Angeles MD Ordering Provider: Tyson Angeles MD Date of Service: 01/09/25 US/US arterial pvr rest LE: I73.9 - Peripheral vascular disease, unspecified Copies to: Tyson Angeles MD~ LOWER EXTREMITY SEGMENTAL ARTERIAL DOPSCAN (PVR) INDICATION: Left leg claudication PROCEDURE: Right arm blood pressure is 167 , left is 174 . Pressures throughout the right leg are 81 at the low thigh, 71 at the calf, 74 at theankle using the posterior tibial artery, and 76 at the ankle using the dorsalispedis artery with ankle-brachial index of 0.43 0.44 . Pressures throughout the left leg are 114 low thigh, 110 at the calf and 90 at the ankle using the posterior tibial artery, and 98 at the ankle using the dorsalis pedis artery with ankle-brachial index of 0.52 0.56 . Wave forms by plethysmography are moderately blunted bilaterally US/US arterial pvr rest LE IMPRESSION: Moderately severe bilateral peripheral vascular occlusive disease at rest. This is either due to aortoiliac or proximal superficial femoral artery occlusive disease. Findings could account for symptoms of vasculogenic claudication. Impression dictated by: Deandre Rolle M.D.01/09/2025 2:00 PM Dictation Location: [place] [address] Tech: Ngozi Chakraborty Transcribed By: RANJEET 01/09/25 1400 Dictated By: Deandre Rolle MD 01/09/25 1353 Signed By: 01/09/25 1400 [facility] Work Phone: 1(163) 996-249802-03-2025 History of Present illness Narrative* RAFFY Faulkner - 01/02/2025 8:30 AM EST Images from the original note were not included. Reason for Appointment: EMG Patient: Hardeep Traore : 1960 EMG Computer: [employer] Referring Physician: Ngozi AREVALO EMG: EDUAR industrial equipment wirer: Emerson Nolasco RT(R) Office Location: [place] Reason for EMG: c/o numbness/tingling & pain in 4th & 5th digits on left hand, pain in leftshoulder. No hx of DM. Taking ASA & Plavix. 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 Patient appeared to have tolerated the test well despite some discomfort due to the nature of the test. 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)acute December 13, 2024 9:54amMixed hyperlipidemiaacuteJanuary 2024 9:54amS/P coronary artery stent placementacuteNovuary 2024 9:54amTobacco use disorder, continuousacuteNovuary 2024 9:54amBilateral claudication of lower limbnoneactiveNovuary 2024 9:54amHospital discharge follow-up noneactiveNovuary 2024 9:54amAbdominal aortic aneurysm (AAA) 3.0 cm to 5.5 cm in diameter in maleacuteJanuary 2024 9:47amCoronary artery disease involving yavapai-apache coronary artery of [place]ap[place]-apache heart wiacuteDecember 20, 2024 9:47amEssential (primary) hypertensionacuteDecember 20, 2024 9: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)acuteDecember 20, 2024 9:47amMixed hyperlipidemiaacuteDecember 20, 2024 9:47amNicotine dependenceacute December 20, 2024 9:47amParesthesia of left upper extremityacuteDecember 20, 2024 9:47amS/P coronary artery stent placementacuteDecember 20, 2024 9:47am Abdominal aortic aneurysm (AAA) 3.0 cm to 5.5 cm in diameter in maleacute January 24, 2025 10:30amCurrent every day smokeracuteFebruary 2024 10:30amNicotine dependenceacuteFebruary 2024 10:30amPAD (peripheral artery disease)acuteFebruary 2024 10:30amAbdominal aortic aneurysm (AAA) 3.0 cm to 5.5 cm in diameter in maleacuteMarch 2024 8:48amPAD (peripheral artery disease)[facility] 8:48am [facility] Work Phone: 1(903) 874-541412-26-2024 Evaluation note* Diagnosis Onset Date Resolution Status Admit Date Abdominal aortic aneurysm (AAA) 3.0 cm t o 5.5 cm in diameter in male inactivece2023 4:44amAcute hypoxic respiratory failureinactive November 24, 2024 4:44amCHF (congestive heart failure)inactiveDece2023 4:44amHypertensive urgencyinactiveDece2023 4:44amNSTEMI (non-ST elevated myocardial infarction)inactivece2023 4:44am [facility] Work Phone: 1(387) 265-748012-26-2024 Evaluation note* Diagnosis Onset Date Resolution Status Admit Date NSTEMI (non-ST elevated myocardial infar ction) acuteDe2023 4:44amAbdominal aortic aneurysm (AAA) 3.0 cm to 5.5 cm in diameter in maleinactiveDece2023 4:44amAcute hypoxic respiratory failureinactiveDecember 2023 4:44amCHF (congestive heart failure)inactive November 24, 2024 4:44amHypertensive urgencyinactiveDecember 2023 4:44am Coronary artery disease involving yavapai-apache coronary artery of y[place]ap[place]-apache heart wiacute December 13, 2024 9:54amEssential (primary) hypertensionacuteNovuary 2024 9: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)acuteJanuary 2024 9:54amMixed hyperlipidemiaacuteJanuary 2024 9:54amS/P coronary artery stent placementacuteDecember 13, 2024 9:54amTobacco use disorder, continuousacuteNovuary 2024 9:54amBilateral claudication of lower limb noneactiveNovuary 2024 9:54amHospital discharge follow-upnoneactiveNovuary 2024 9:54amNicotine dependenceacuteNovuary 2024 9:47amParesthesia of left upper extremityacuteNovuary 2024 9:47am [facility] Work Phone: 1([phone]) 988-676112-26-2024 Evaluation note* Diagnosis Onset Date Resolution Status Admit Date Abdominal aortic aneurysm (AAA) 3.0 cm t o 5.5 cm in diameter in male acuteDe2023 4:44amNSTEMI (non-ST elevated myocardial infarction) acuteNovember 24, 2024 4:44amAcute hypoxic respiratory failureinactivecember 2023 4:44amCHF (congestive heart failure)inactiveNovember 24, 2024 4:44amHypertensive urgencyinactiveDecember 2023 4:44amCoronary artery disease involving [place]ap[place]-apache coronary artery of [place]-apache heart wiacuteNovuary 2024 9:54amEssential (primary) hypertensionacuteNovuary 2024 9: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)acuteNovuary 2024 9:54amMixed hyperlipidemiaacuteJanuary 2024 9:54amS/P coronary artery stent placementacuteNovuary 2024 9:54amTobacco use disorder, continuous acuteJanuary 2024 9:54amBilateral claudication of lower limbnoneactive December 13, 2024 9:54amHospital discharge follow-upnoneactiveJanuary 2024 9:54amAbdominal aortic aneurysm (AAA) 3.0 cm to 5.5 cm in diameter in male acuteJanuary 2024 9:47amCoronary artery disease involving [place]ap[place]-apache coronary artery of y[place]ap[place]-apache heart wiacuteNovuary 2024 9:47amEssential (primary) hypertensionacuteNovuary 2024 9: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)acuteJanuary 2024 9:47amMixed hyperlipidemia acuteJanuary 2024 9:47amNicotine dependenceacuteNovuary 2024 9:47am Paresthesia of left upper extremityacuteNovuary 2024 9:47amS/P coronary artery stent placementacuteDecember 20, 2024 9:47am [facility] Work Phone: 1(155) 656-483112-26-2024 Evaluation note* Diagnosis Onset Date Resolution Status Admit Date Abdominal aortic aneurysm (AAA) 3.0 cm t o 5.5 cm in diameter in male acuteDecember 2023 4:44amNSTEMI (non-ST elevated myocardial infarction) acuteDeceer 2023 4:44amAcute hypoxic respiratory failureinactiveDecember 2023 4:44amCHF (congestive heart failure)inactiveDeceer 2023 4:44amHypertensive urgencyinactiveDecember 2023 4:44amCoronary artery disease involving yavapai-apache coronary artery of y[place]ap[place]-apache heart wiacuteNovuary 2024 9:54amEssential (primary) hypertensionacuteNovuary 2024 9: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)acuteNovuary 2024 9:54amMixed hyperlipidemiaacuteJanuary 2024 9:54amS/P coronary artery stent placementacuteJanuary 2024 9:54amTobacco use disorder, continuous acuteJanuary 2024 9:54amBilateral claudication of lower limbnoneactive December 13, 2024 9:54amHospital discharge follow-upnoneactiveDecember 13, 2024 9:54amAbdominal aortic aneurysm (AAA) 3.0 cm to 5.5 cm in diameter in male acuteJanuary 2024 9:47amCoronary artery disease involving yavap[place]-apache coronary artery of y[place]ap[place]-apache heart wiacuteDecember 20, 2024 9:47amEssential (primary) hypertensionacuteDecember 20, 2024 9: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)acuteDecember 20, 2024 9:47amMixed hyperlipidemia acuteNovuary 2024 9:47amNicotine dependenceacuteDecember 20, 2024 9:47am Paresthesia of left upper extremityacuteDecember 20, 2024 9:47amS/P coronary artery stent placementacuteDecember 20, 2024 9:47amAbdominal aortic aneurysm (AAA) 3.0 cm to 5.5 cm in diameter in maleacuteFebruary 2024 10:30am Current every day smokeracuteFebruary 2024 10:30amNicotine dependenceacute January 24, 2025 10:30amPAD (peripheral artery disease)acutebruary 2024 10:30am [facility] Work Phone: 1(816) 385-900312-26-2024 Evaluation note* Diagnosis Onset Date Resolution Status Admit Date Abdominal aortic aneurysm (AAA) 3.0 cm t o 5.5 cm in diameter in male acuteDeceer 2023 4:44amNSTEMI (non-ST elevated myocardial infarction) acuteDeceer 2023 4:44amAcute hypoxic respiratory failureinactiveDeceer 2023 4:44amCHF (congestive heart failure)inactiveDeceer 2023 4:44amHypertensive urgencyinactiveDeceer 2023 4:44amCoronary artery disease involving yavapai-apache coronary artery of yavapai-apache heart wiacuteNovuary 2024 9:54amEssential (primary) hypertensionacuteNovuary 2024 9: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)acuteNovuary 2024 9:54amMixed hyperlipidemiaacuteNovuary 2024 9:54amS/P coronary artery stent placementacuteNovuary 2024 9:54amTobacco use disorder, continuous acuteNovuary 2024 9:54amBilateral claudication of lower limbnoneactive December 13, 2024 9:54amHospital discharge follow-upnoneactiveNovuary 2024 9:54amAbdominal aortic aneurysm (AAA) 3.0 cm to 5.5 cm in diameter in male acuteNovuary 2024 9:47amCoronary artery disease involving yavap[place]-apache coronary artery of y[place]ap[place]-apache heart wiacuteNovuary 2024 9:47amEssential (primary) hypertensionacuteDecember 20, 2024 9: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)acuteNovuary 2024 9:47amMixed hyperlipidemia acuteNovuary 2024 9:47amNicotine dependenceacuteDecember 20, 2024 9:47am Paresthesia of left upper extremityacuteDecember 20, 2024 9:47amS/P coronary artery stent placementacuteDecember 20, 2024 9:47amAbdominal aortic aneurysm (AAA) 3.0 cm to 5.5 cm in diameter in maleacuteFebruary 2024 10:30am Current every day smokeracuteFebruary 2024 10:30amNicotine dependenceacute February 2024 10:30amPAD (peripheral artery disease)acutebruary 2024 10:30amAbdominal aortic aneurysm (AAA) 3.0 cm to 5.5 cm in diameter in male [facility] 2024 8:48amPAD (peripheral artery disease)[facility] 2024 8:48am [facility] Work Phone: Evaluation note* Diagnosis Numbness and tingling- Primary Disturbance of skin sensation documented in this encounter [facility] HealthcareEvaluation noteNo assessment information availableSelect [facility] Work Phone: Hospital Discharge instructionsAmbulatory Orders* Referral to Neurology Location: None Selected [facility] Work Phone: Hospital Discharge instructions Additional Instructions Tylenol if needed for minor pain Ledbetter if needed for severe pain Elevate Rest Avoid heavy lifting Follow-up with vascular as planned next week on the Also follow-up with your PCP for further testing Return here if you develop any shortness of breath or any other concernU[facility] Work Phone: Relacf for referral (narrative)No reason for referral information availableSelect [facility] Work Phone: Reemra for visit Narrative* Other Medical (Routine) - ClosedSpecialtyDiagnoses / ProceduresReferred By ContactReferred To Contact Neurology Diagnoses Paresthesia of skin Procedures LA OFFICE/OUTPATIENT NEW LOW MDM 30 MINUTES Ngozi Alfaro, RN PROCEDURE [address] [place] [address] [place] [address] Phone: tel: fax: Blu Javier MD [address] [place] [address] Phone: tel: fax: Referral IDStatusReasonStart DateExpiration DateVisits RequestedVisits [id number] Perform Procedure / [facility] Healthcare Summary Purpose Family History Relationship Condition Age at Onset Recorded Date/T renee mother Malignant neoplasm Unknown Cerebrovascular accident (CVA)UnknownfatherMalignant neoplasmUnknownbrother Malignant neoplasmUnknownsisterMalignant neoplasmUnknown Relationship Condition Age at Onset Recorded Date/T renee mother Malignant neoplasm Unknown Cerebrovascular accident (CVA)UnknownDeceasedUnknownfatherMalignant neoplasm UnknownMalignant neoplasm of urinary bladderUnknownMalignant neoplasm of colon UnknownbrotherMalignant neoplasmUnknownMalignant neoplasm of boneUnknownsister Malignant neoplasmUnknownbrotherMalignant neoplasm of boneUnknown Advance Directives Advance Directive Response Recorded Date/ Time Advance Directives No October 4:02am Advance Directive Response Recorded Date/ Time Advance Directives No October 5:02am Chief Complaint and Reason for Visit Chief Complaint Admit Date NSTEMI November 24, 2024 4:44am NSTEMI November 25, 2024 1:41pm Amb Documentation December 02, 2024 10 :33am [facility] 11/26December 13, 2024 9 :54am Reason for Visit Admit Date Abdominal aortic aneurysm (A AA) 3.0 cm to 5.5 cm in diameter in male November 24, 2024 4:44am Acute hypoxic respiratory failure Decemb er 2023 4:44am CHF (congestive heart failure) November 24, 2024 4:44am Hypertensive urgency November 24, 2024 4:44am NSTEMI (non-ST elevated myocardial infar ction) November 24, 2024 4:44am Chief Complaint Admit Date NSTEMI November 24, 2024 4:44am NSTEMI November 25, 2024 1:41pm Amb Documentation December 02, 2024 10 :33am [facility] 11/26December 13, 2024 9 :54am [facility] IP/ Aortic Aneurysm December 20, 9:47am Reason for Visit Admit Date NSTEMI (non-ST elevated myocardial infar ction) November 24, 2024 4:44am Abdominal aortic aneurysm (A AA) 3.0 cm to 5.5 cm in diameter in male November 24, 2024 4:44am Acute hypoxic respiratory failure Decemb er 2023 4:44am CHF (congestive heart failure) November 24, 2024 4:44am Hypertensive urgency November 24, 2024 4:44am Coronary artery disease invo lving yavapai-apache coronary artery of yavap[place]-apache heart wi December 13, 2024 9:54am Essential (primary) hypertension December 13, 2024 9:54am Heart failure with mildly re duced ejection fraction (HFmrEF) December 13, 2024 9:54am Mixed hyperlipidemia December 13, 2024 9:54am S/P coronary artery stent placement 2024 9:54am Tobacco use disorder, continuous December 13, 2024 9:54am Bilateral claudication of lower limb Basilio [facility] 2024 9:54am Hospital discharge follow-up November 9:54am Nicotine dependence December 20, 2024 9 :47am Paresthesia of left upper extremity Tera victor manuel2024 9:47am Chief Complaint Admit Date NSTEMI November 24, 2024 4:44am NSTEMI November 25, 2024 1:41pm Amb Documentation December 02, 2024 10 :33am [facility] 11/26December 13, 2024 9 :54am [facility] IP/ Aortic Aneurysm December 20 9:47am I73.9 January 09, 2025 9:01am Reason for Visit Admit Date Abdominal aortic aneurysm (A AA) 3.0 cm to 5.5 cm in diameter in male November 24, 2024 4:44am NSTEMI (non-ST elevated myocardial infar ction) November 24, 2024 4:44am Acute hypoxic respiratory failure Decemb er 2023 4:44am CHF (congestive heart failure) November 24, 2024 4:44am Hypertensive urgency November 24, 2024 4:44am Coronary artery disease invo lving yavapai-apache coronary artery of y[place]ap[place]-apache heart ri December 13, 2024 9:54am Essential (primary) hypertension December 13, 2024 9:54am Heart failure with mildly re duced ejection fraction (HFmrEF) December 13, 2024 9:54am Mixed hyperlipidemia December 13, 2024 9:54am S/P coronary artery stent placement 2024 9:54am Tobacco use disorder, continuous December 13, 2024 9:54am Bilateral claudication of lower limb [facility] 2024 9:54am Hospital discharge follow-up November 9:54am Abdominal aortic aneurysm (A AA) 3.0 cm to 5.5 cm in diameter in male December 20, 2024 9:47am Coronary artery disease invo lving yavapai-apache coronary artery of y[place]-apache heart ri December 20, 2024 9:47am Essential (primary) hypertension December 20, 2024 9:47am Heart failure with mildly re duced ejection fraction (HFmrEF) December 20, 2024 9:47am Mixed hyperlipidemia December 20, 2024 9:47am Nicotine dependence December 20, 2024 9 :47am Paresthesia of left upper extremity 2024 9:47am S/P coronary artery stent placement 2024 9:47am Chief Complaint Admit Date NSTEMI November 24, 2024 4:44am NSTEMI November 25, 2024 1:41pm Amb Documentation December 02, 2024 10 :33am [facility] 11/26December 13, 2024 9 :54am [facility] IP/ Aortic Aneurysm December 20, 2 025 9:47am I73.9 January 09, 2025 9:01am L arm pain January 17, 2025 1:21pm Chief Complaint Admit Date NSTEMI November 24, 2024 4:44am NSTEMI November 25, 2024 1:41pm Amb Documentation December 02, 2024 10 :33am [facility] 11/26December 13, 2024 9 :54am [facility] IP/ Aortic Aneurysm December 20, 2 025 9:47am I73.9 January 09, 2025 9:01am L arm pain January 17, 2025 1:21pm ref by Dr. Angeles for PVD December 10:30am Chief Complaint Admit Date NSTEMI November 24, 2024 4:44am NSTEMI November 25, 2024 1:41pm Amb Documentation December 02, 2024 10 :33am [facility] 11/26December 13, 2024 9 :54am [facility] IP/ Aortic Aneurysm December 20 2 025 9:47am I73.9 January 09, 2025 9:01am L arm pain January 17, 2025 1:21pm ref by Dr. Angeles for PVD December 10:30am i70.213 February 06, 2025 11: 54am Reason for Visit Admit Date Abdominal aortic aneurysm (A AA) 3.0 cm to 5.5 cm in diameter in male November 24, 2024 4:44am NSTEMI (non-ST elevated myocardial infar ction) November 24, 2024 4:44am Acute hypoxic respiratory failure Dece er 2023 4:44am CHF (congestive heart failure) November 24, 2024 4:44am Hypertensive urgency November 24, 2024 4:44am Coronary artery disease invo lving yavapai-apache coronary artery of yav[place]-apache heart wi December 13, 2024 9:54am Essential (primary) hypertension December 13, 2024 9:54am Heart failure with mildly re duced ejection fraction (HFmrEF) December 13, 2024 9:54am Mixed hyperlipidemia December 13, 2024 9:54am S/P coronary artery stent placement Tera rush 2024 9:54am Tobacco use disorder, continuous December 13, 2024 9:54am Bilateral claudication of lower limb Basilio 2024 9:54am Hospital discharge follow-up November 9:54am Abdominal aortic aneurysm (A AA) 3.0 cm to 5.5 cm in diameter in male December 20, 2024 9:47am Coronary artery disease invo lving y[place]ap[place]-apache coronary artery of [place]-apache heart wi December 20, 2024 9:47am Essential (primary) hypertension December 20, 2024 9:47am Heart failure with mildly re duced ejection fraction (HFmrEF) December 20, 2024 9:47am Mixed hyperlipidemia December 20, 2024 9:47am Nicotine dependence December 20, 2024 9 :47am Paresthesia of left upper extremity 2024 9:47am S/P coronary artery stent placement 2024 9:47am Abdominal aortic aneurysm (A AA) 3.0 cm to 5.5 cm in diameter in male January 24, 2025 10:30am Current every day smoker January 24, 2025 10:30am Nicotine dependence January 24, 2025 10:30am PAD (peripheral artery disease) January 24, 2025 10:30am Chief Complaint Admit Date NSTEMI November 24, 2024 4:44am NSTEMI November 25, 2024 1:41pm Amb Documentation December 02, 2024 10 :33am [facility] 11/26December 13, 2024 9 :54am [facility] IP/ Aortic Aneurysm December 20 2 025 9:47am I73.9 January 09, 2025 9:01am L arm pain January 17, 2025 1:21pm ref by Dr. Angeles for PVD December 10:30am i70.213 February 06, 2025 11: 54am GO OVER CTA-LEGS [facility] 02/06/25January 8:48am Chief Complaint Admit Date NSTEMI November 24, 2024 4:44am NSTEMI November 25, 2024 1:41pm Amb Documentation December 02, 2024 10 :33am [facility] 11/26December 13, 2024 9 :54am [facility] IP/ Aortic Aneurysm December 20 2 025 9:47am I73.9 January 09, 2025 9:01am L arm pain January 17, 2025 1:21pm ref by Dr. Angeles for PVD December 10:30am i70.213 February 06, 2025 11: 54am GO OVER CTA-LEGS [facility] 02/06/25January 8:48am PAD w/Claudication, AAA February 17, 2025 9:17am Reason for Visit Admit Date Abdominal aortic aneurysm (A AA) 3.0 cm to 5.5 cm in diameter in male November 24, 2024 4:44am NSTEMI (non-ST elevated myocardial infar ction) November 24, 2024 4:44am Acute hypoxic respiratory failure Decemb er 2023 4:44am CHF (congestive heart failure) November 24, 2024 4:44am Hypertensive urgency November 24, 2024 4:44am Coronary artery disease invo lving [place]-apache coronary artery of [place]-apache heart ri December 13, 2024 9:54am Essential (primary) hypertension December 13, 2024 9:54am Heart failure with mildly re duced ejection fraction (HFmrEF) December 13, 2024 9:54am Mixed hyperlipidemia December 13, 2024 9:54am S/P coronary artery stent placement 2024 9:54am Tobacco use disorder, continuous December 13, 2024 9:54am Bilateral claudication of lower limb [facility] 2024 9:54am Hospital discharge follow-up November 9:54am Abdominal aortic aneurysm (A AA) 3.0 cm to 5.5 cm in diameter in male December 20, 2024 9:47am Coronary artery disease invo lving [place]ap[place]-apache coronary artery of [place]-apache heart ri December 20, 2024 9:47am Essential (primary) hypertension December 20, 2024 9:47am Heart failure with mildly re duced ejection fraction (HFmrEF) December 20, 2024 9:47am Mixed hyperlipidemia December 20, 2024 9:47am Nicotine dependence December 20, 2024 9 :47am Paresthesia of left upper extremity 2024 9:47am S/P coronary artery stent placement 2024 9:47am Abdominal aortic aneurysm (A AA) 3.0 cm to 5.5 cm in diameter in male February 25th, 2025 10:30am Current every day smoker January 24, 2025 10:30am Nicotine dependence January 24, 2025 10:30am PAD (peripheral artery disease) January 24, 2025 10:30am Abdominal aortic aneurysm (A AA) 3.0 cm to 5.5 cm in diameter in male February 14, 2025 8:48am PAD (peripheral artery disease) February 142024 8:48am Chief Complaint Admit Date [facility] 11/26December 13, 2024 9 :54am [facility] IP/ Aortic Aneurysm December 20, 025 9:47am I73.9 January 09, 2025 9:01am L arm pain January 17, 2025 1:21pm ref by Dr. Angeles for PVD December 10:30am i70.213 February 06, 2025 11: 54am GO OVER CTA-LEGS [facility] 02/06/25January 8:48am PAD w/Claudication, AAA February 17, 2025 9:17am RE-TALK ABOUT LEG SURGERY March 06 10:01am Reason for Visit Admit Date Coronary artery disease invo lving [place]-apache coronary artery of [place]-apache heart ri December 13, 2024 9:54am Essential (primary) hypertension December 13, 2024 9:54am Heart failure with mildly re duced ejection fraction (HFmrEF) December 13, 2024 9:54am Mixed hyperlipidemia December 13, 2024 9:54am S/P coronary artery stent placement [facility] 2024 9:54am Tobacco use disorder, continuous December 13, 2024 9:54am Bilateral claudication of lower limb [facility]ilio [facility] 2024 9:54am Hospital discharge follow-up November 9:54am Abdominal aortic aneurysm (A AA) 3.0 cm to 5.5 cm in diameter in male December 20, 2024 9:47am Coronary artery disease invo lving [place] coronary artery of [place] heart [place] December 20, 2024 9:47am Essential (primary) hypertension December 20, 2024 9:47am Heart failure with mildly re duced ejection fraction (HFmrEF) December 20, 2024 9:47am Mixed hyperlipidemia December 20, 2024 9:47am Nicotine dependence December 20, 2024 9 :47am Paresthesia of left upper extremity Tera victor manuel2024 9:47am S/P coronary artery stent placement [facility]2024 9:47am Abdominal aortic aneurysm (A AA) 3.0 cm to 5.5 cm in diameter in male January 24, 2025 10:30am Current every day smoker January 24, 2025 10:30am Nicotine dependence January 24, 2025 10:30am PAD (peripheral artery disease) January 24, 2025 10:30am Abdominal aortic aneurysm (A AA) 3.0 cm to 5.5 cm in diameter in male February 14, 2025 8:48am PAD (peripheral artery disease) February 142024 8:48am Chief Complaint Admit Date I73.9 January 09, 2025 9:01am L arm pain January 17, 2025 1:21pm ref by Dr. Angeles for PVD December 10:30am i70.213 February 06, 2025 11: 54am GO OVER CTA-LEGS [facility] 02/06/25January 8:48am PAD w/Claudication, AAA February 17, 2025 9:17am RE-TALK ABOUT LEG SURGERY March 06 10:01am 4 month follow up April 04, 2025 9:54am Reason for Visit Admit Date Abdominal aortic aneurysm (A AA) 3.0 cm to 5.5 cm in diameter in male January 24, 2025 10:30am Current every day smoker January 24, 2025 10:30am Nicotine dependence January 24, 2025 10:30am PAD (peripheral artery disease) January 24, 2025 10:30am Abdominal aortic aneurysm (A AA) 3.0 cm to 5.5 cm in diameter in male February 14, 2025 8:48am PAD (peripheral artery disease) February 142024 8:48am PAD (peripheral artery disease) February 10:01am Coronary artery disease invo lving [place] coronary artery of [place] heart [place] April 04, 2025 9:54am Essential (primary) hypertension March 9:54am Heart failure with mildly re duced ejection fraction (HFmrEF) April 04, 2025 9:54am Mixed hyperlipidemia April 04, 2025 9:54a m S/P coronary artery stent placement April 04, 2025 9:54am Tobacco use disorder, continuous March 9:54am Bilateral claudication of lower limb April 04, 2025 9:54am Hospital discharge follow-up April 04 9:54am Chief Complaint Admit Date i70.213 February 06, 2025 11: 54am GO OVER CTA-LEGS [facility] 02/06/25January 8:48am PAD w/Claudication, AAA February 17, 2025 9:17am PAD w/Claudication, AAA March 01, 2025 8:00am RE-TALK ABOUT LEG SURGERY March 06 10:01am 4 month follow up April 04, 2025 9:54am Reason for Visit Admit Date Abdominal aortic aneurysm (A AA) 3.0 cm to 5.5 cm in diameter in male February 14, 2025 8:48am PAD (peripheral artery disease) February 142024 8:48am PAD (peripheral artery disease) February 10:01am Coronary artery disease invo lving [place] coronary artery of [place] heart [place] April 04, 2025 9:54am Essential (primary) hypertension March 9:54am Heart failure with mildly reduced ejecti on fraction (HFmrEF) April 04, 2025 9:54am Mixed hyperlipidemia April 04, 2025 9:54a m S/P coronary artery stent placement April 04, 2025 9:54am Tobacco use disorder, continuous March 9:54am Chief Complaint Admit Date 3 month follow up; PAD; No Testing Augus t 2024 8:49am Additional Source Comments (unrecognized sect ion and content) No Status Records FoundNo Status Records FoundNo Status Records Found INFORMATION SOURCE (unrecogn ized section and content) DATE CREATED AUTHOR 01/27/2021 [facility] DATE CREATED AUTHOR AUTHOR'S ORGANIZ ATION 01/03/2025 [facility] DATE CREATED AUTHOR AUTHOR'S ORGANIZ ATION 07/01/2025 [facility] Care Teams (unrecognized sec tion and content) Team Status: Active Member Role Status Dates Ngozi Alfaro APRN RN PROCEDURE-C Primary Care Provider Active Team Status: Inactive Member Role Status Dates Adama Olivier MD Admit Provider Active Start: November 24, 2024 End: November 27tatiana Lawson APRN RN PROCEDURE-CPrimary Care Provider ActiveStart: November 24, 2024 End: November 27, 2024Lucien Aguila DOAttending ProviderActiveStart: November 24, 2024 End: November 27, 2024 Team Status: Active Member Role Status Dates Adama Olivier MD Admit Provider Active Start: November 25, 2024 Edmundo Hernandes MDOther ProviderActiveStart: November 25, 2024 Analy Tello RNOther ProviderActiveStart: November 25, 2024 Cornel Negron MDAttending Provider, Other ProviderActiveStart: November 25, 2024 Tyson Angeles MDOther ProviderActiveStart: November 25, 2024 Lorena Cross MDOther ProviderActiveStart: November 25, 2024 Clair Lawson APRN RN PROCEDURE-CPrimary Care ProviderActiveStart: November 25, 2024 Team Status: Active Member Role Status Dates Ngozi Alfaro APRN RN PROCEDURE-C Primary Care Provider Active Start: December 02, 2024 Nasra Herzog CMAAttending ProviderActiveStart: December 02, 2024 Team Status: Inactive Member Role Status Dates Tyson Angeles MD Attending Provider Activ e Start: December 13, 2024 End: December 13, 2024Ngozi Alfaro APRN RN PROCEDURE-CPrimary Care Provider ActiveStart: December 13, 2024 End: December 13, 2024 Team Status: Active Member Role Status Dates Ngozi Alfaro APRN RN PROCEDURE-C Primary Care Provider Active Start: November 242023 Sammy Fung DOAttending ProviderActiveStart: November 24, 2024 Team Status: Inactive Member Role Status Dates Ngozi Alfaro APRN RN PROCEDURE-C Primary Care Provider, Attending Provider Active Start: December 20, 2024 End: December 20, 2024Team MemberRelationshipSpecialtyStart DateEnd Date Unallocated, [place] Provider, [place] [address] [facility] - [facility]24 Ngozi Alfaro NP [address] [place] [address] [place] [address] Referring [facility]Bel[facility]12/21/24Team MemberRelationshipSpecialtyStart DateEnd Date Unallocated, N[place] Provider, [place] [address] [facility] - [facility]/21/24 Ngozi Alfaro NP [address] [place] [address] [place] [address] [facility]24 Team Status: Inactive Member Role Status Dates Ngozi Alfaro APRN RN PROCEDURE-C Primary Care Provider Active Start: January 092024 End: January 09, 2025Casper Shelton ProviderActive Start: January 09, 2025 End: January 09, 2025 Team Status: Inactive Member Role Status Dates Ngozi Alfaro APRN RN PROCEDURE-C Primary Care Provider Active Start: January 172024 End: January 17Helga Mckinley ProviderActiveStart: January 17, 2025 End: January 17, 2025 Team Status: Inactive Member Role Status Dates Ngozi Alfaro APRN RN PROCEDURE-C Primary Care Provider Active Start: January 242024 End: January 24, 2025Escobar Blackwellending ProviderActiveStart: January 24, 2025 End: January 24, 2025 Team Status: Inactive Member Role Status Dates Ngozi Alfaro APRN RN PROCEDURE-C Primary Care Provider Active Start: February 06, 2025 End: February 06, 2025Philomena Montes NP-CAttenchai ProviderActiveStart: February 06, 2025 End: February 06, 2025 Team Status: Inactive Member Role Status Dates Ngozi Alfaro APRN RN PROCEDURE-C Primary Care Provider Active Start: February 14, 2025 End: February 14, 2025Guillerené Rolle MDAttending ProviderActiveStart: February 14, 2025 End: February 14, 2025 Team Status: Inactive Member Role Status Dates Ngozi Alfaro APRN RN PROCEDURE-C Primary Care Provider Active Start: February 17, 2025 End: February 17, 2025Guillerené Rolle MDAttending ProviderActiveStart: February 17, 2025 End: February 17, 2025 Team Status: Inactive Member Role Status Dates Ngozi Alfaro APRN RN PROCEDURE-C Primary Care Provider Active Start: March 06, 2025 End: March 06, 2025Guillerené Rolle MDAttending ProviderActiveStart: March 06, 2025 End: March 06, 2025 Team Status: Inactive Member Role Status Dates Ngozi Alfaro APRN RN PROCEDURE-C Primary Care Provider Active Start: April 04, 2025 End: April 04, 2025Geclaritza Angeles MDAttending ProviderActiveStart: April 04, 2025 End: April 04, 2025 Team Status: Inactive Member Role Status Dates Ngozi Alfaro APRN RN PROCEDURE-C Primary Care Provider Active Start: March 01, 2025 End: March 01, 2025Guillerené Rolle MDAttending ProviderActiveStart: March 01, 2025 End: March 01, 2025 Team Status: Inactive Member Role Status Dates Ngozi Alfaro APRN RN PROCEDURE-C Primary Care Provider Active Start: July 10, 2025 End: July 10, 2025Guillerené Rolle MDAttending ProviderActiveStart: July 10, 2025 End: July 10, 2025 Goals (unrecognized section and content) Goals may be documented in a n alternate sectionGoals may be documented in an alternate sectionGoals may be documented in an alternate sectionGoals may be documented in an alternate section FOR RECORDS PERTAINING TO PATIENTS WHO ARE OR HAVE BEEN ENROLLED IN A CHEMICAL DEPENDENCY/SUBSTANCEABUSE PROGRAM, SOME INFORMATION MAY BE OMITTED. This clinical summary was aggregated from multiple sources. Caution should be exercised in using it in the provision of clinical care. This summary normalizes information from multiple sources, and as a consequence, information in this document may materially change the coding, format and clinical context of patient data. In addition, data may be omitted in some cases. CLINICAL DECISIONS SHOULD BE BASED ON THE PRIMARY CLINICAL RECORDS. [facility]. provides no warranty or guarantee of the accuracy or completeness of information in this document.
[2025-10-14 09:45] LABS: Hematocrit 43.9 % (42.0-54.0); Hemoglobin 14.6 g/dL (14.0-18.0); Immature Granulocytes Abs Auto 0.02 10^3/uL (0.00-0.03); Immature Granulocytes Pct Auto 0.2 % (0.0-0.5); Lymphocytes Absolute Auto 2.6 10^3/uL (1.2-3.8); Mean Corpuscular HGB Conc 33.3 g/dL (29.9-35.2); Mean Corpuscular Hemoglobin 32.8 pg (25.9-34.0); Mean Corpuscular Volume 98.7 fL (80.0-94.0); Platelet Count 244 10^3/uL (150-450); Red Blood Count 4.45 10^6/uL (4.70-6.10); White Blood Count 9.8 10^3/uL (4.0-11.0)
[2025-10-14 10:56] LABS: Anion Gap 14.5; Blood Urea Nitrogen 20.0 mg/dL (7.0-18.0); Calcium 8.9 mg/dL (8.5-10.1); Carbon Dioxide 26.8 mmol/L (21.0-32.0); Chloride 107 mmol/L (98-107); Cholesterol 116 mg/dL (<=200); Estimated GFR (African America >60 (>=60 mL/min/1.73m^2); Estimated GFR (Non-African Ame >60 (>=60 mL/min/1.73m^2); Glucose 103 mg/dL (74-106); HDL Cholesterol 32 mg/dL (40-60); Potassium 4.3 mmol/L (3.5-5.1); Sodium 144 mmol/L (136-145); Triglycerides 61 mg/dL (<=150); VLDL CHOLESTEROL 12.2 mg/dL
== END 2025-10-14 09:00 | disposition home or self-care (01) ==
PROVIDERS: PCP Nurse Practitioner Family; Visit Provider Student in an Organized Health Care Education/Training Program
DX: I11.0 Hypertensive heart disease with heart failure (principal); I50.22 Chronic systolic (congestive) heart failure; I25.10 Atherosclerotic heart disease of native coronary artery without angina pectoris; E78.2 Mixed hyperlipidemia
CPT/HCPCS: 36415; 80048; 80061; 85025